=== PATIENT | male | born 1985 | race Caucasian/White ===

== ENCOUNTER 2021-03-28 19:08 | Inpatient (IN) | payer OTHER, SELFPAY ==
--- NOTE | 2021-03-28 19:36 | W.ED.GENADLT ---
HPI - General Adult General: Chief complaint: Shortness of Breath/Dyspnea Stated complaint: Sob, Time Seen by Provider: 03/28/21 19:36 History of Present Illness: HPI narrative: Mr Linares is a 35-year-old gentleman without significant past medical history presents emergency department due to racing heart, leg swelling, shortness of breath. Onset of symptoms has been gradual for the past few weeks. He cannot think of a specific provoking event that started this. Since that time he has had intermittent but increasing frequency and worsening intensity of symptoms. Symptoms are worse with exertion but do not go with rest. No associated chest pain. He cannot think of specific exacerbating relieving factors otherwise. He denies similar episodes in the past. Smoking. Mild amount alcohol consumption. Does have positive family history of early cardiac . Review of Systems General: Reports: 10 or more systems reviewed and unremarkable except in HPI and below PFSH ED PFSH: Medical History CHF (congestive heart failure), NYHA class III Second hand smoke exposure Surgical History No pertinent past surgical history Physical Exam Narrative: EXAM NARRATIVE: GENERAL/CONSTITUTIONAL -mildly ill-appearing. No acute distress. Eyes - PERRL, no conjunctival injection ENMT - Atraumatic external nose and ears. Moist mucous membranes NECK - supple. trachea midline CARDIOVASCULAR -tachycardic rate and regular rhythm. Peripheral pulses 2+ and equal. 1+ pitting edema to above the knees RESPIRATORY -clear to auscultation bilaterally. Mild tachypnea ABDOMEN/GI - Nontender/Nondistended. No tenderness to percussion or evidence of peritonitis MSK - Extremities without obvious deformity or tenderness to palpation SKIN - Warm, Dry NEURO - alert and appropriately oriented. Moves all extremities equally. PSYCH -anxious Course ED course: - Patient was seen and evaluated by me at bedside - Patient placed on cardiac monitors, IV access obtained - Initial evaluation notable for anxious appearance, tachycardia. Patient initially brought right back from triage as pulse oximeter appeared to be reading each heartbeat as to and thus heart rate was estimated to be well above 200, upon being hooked to classroom monitor patient's heart rate 120 to 130 range -Fluids ordered - Labs notable for mild leukocytosis. No significant metabolic abnormality to explain patient's symptoms, transaminitis of unclear etiology. BNP elevated. D-dimer elevated. - Imaging notable for no PE, mild cardiomegaly and pericardial effusion - Upon serial reexamination after treatment the patient was mildly improved - Based on patient history, evaluation, labs, and imaging as interpreted the most likely cause of the patient's condition is unclear. Patient does require further evaluation for apparent new onset heart failure. - The results of ED evaluation were discussed with the patient including plan for admission due to requirement for level of care not available if discharged to prevent significant worsening/deterioration. -Hospitalist service contacted and agreed to meet the patient - Patient was admitted without further deterioration or significant events. Vital Signs: Vital signs: Vital Signs Temperature 97.6 F 04/01/21 04:00 Pulse Rate 113 H 04/01/21 17:00 Respiratory Rate 28 H 04/01/21 09:15 Blood Pressure 112/67 04/01/21 15:30 Pulse Oximetry 98 04/01/21 13:15 MDM - General Adult Medical Records: Attestation: I reviewed the patient's medical records. Lab Data: Attestation: I reviewed the patient's lab results. Labs: Lab Results 03/28/21 03/28/21 03/28/21 19:47 19:47 19:47 WBC 12.1 10^3/uL H 10 ^3/uL (4.0-10.0) RBC 5.88 10^6/uL H 10 ^6/uL (4.1-5.3) Hgb 15.9 g/dL g/dL (11.7-16.6) Hct 48.4 % % (42.0-52.0) MCV 82.3 fl fl (80-94) MCH 27.0 pg L pg (28.0-34.0) MCHC 32.9 g/dL g/dL (30.0-36.0) RDW 14.9 % % (12.1-15.1) Plt Count 311 10^3/cmm 10^3 /cmm (130-400) MPV 10.4 fL fL (7.4-10.4) Neut % (Auto) 59.5 % % Lymph % (Auto) 27.3 % % [place] % (Auto) 8.8 % % Eos % (Auto) 2.0 % % Baso % (Auto) 1.7 % % Neut # (Auto) 7.22 10^3/uL 10^3 /uL (1.8-7.7) Lymph # (Auto) 3.3 10^3/uL 10^3/ uL (0.8-4.8) [place] # (Auto) 1.1 10^3/uL H 10^ 3/uL (0.2-0.9) Eos # (Auto) 0.2 10^3/uL 10^3/ uL (0.0-0.8) Baso # (Auto) 0.2 10^3/uL H 10^ 3/uL (0.0-0.1) Nucleated RBC % (a uto) 0 % % Nucleated RBCs # 0.0 /100WBC /100W BC D-Dimer Sodium Cancelled Potassium Cancelled Chloride Cancelled Carbon Dioxide Cancelled Anion Gap Cancelled BUN Cancelled Creatinine Cancelled GFR Calculation Cancelled Glucose Cancelled Estimat Average Gl ucose Hemoglobin A1c Calculated Osmolal ity Cancelled Lactate 1.4 mmol/L mmol/L (0.5-2.2) Calcium Cancelled Magnesium Cancelled Total Bilirubin Cancelled AST Cancelled ALT Cancelled Alkaline Phosphata se Cancelled Troponin T Baselin e Troponin T 120 Min poarch Delta Troponin T Troponin T Hi Sens 6Hr Troponin T Hi Sens 6Hr Delta C-Reactive Protein Cancelled NT-Pro-B Natriuret Pep Cancelled Total Protein Cancelled Albumin Cancelled Globulin Cancelled Triglycerides Cholesterol LDL Cholesterol, C alc HDL Cholesterol LDL/HDL Ratio Cholesterol/HDL Ra jagruti Procalcitonin Cancelled TSH Cancelled Hepatitis A IgM Ab Hep Bs Antigen Hep B Core IgM Ab Hepatitis C Antibo dy SARS-CoV-2 Ag (Rap id) 03/28/21 03/28/21 03/28/21 19:47 19:47 20:13 WBC RBC Hgb Hct MCV MCH MCHC RDW Plt Count MPV Neut % (Auto) Lymph % (Auto) [place] % (Auto) Eos % (Auto) Baso % (Auto) Neut # (Auto) Lymph # (Auto) [place] # (Auto) Eos # (Auto) Baso # (Auto) Nucleated RBC % (a uto) Nucleated RBCs # D-Dimer 0.82 ug/mIFEU H u g/mIFEU (0-0.59) Sodium 139 mmol/L mmol/L (136-145) Potassium 4.0 mmol/L mmol/L (3.5-5.1) Chloride 106 mmol/L mmol/L (98-107) Carbon Dioxide 22 mmol/L mmol/L (22-29) Anion Gap 15.0 (5-19) BUN 23 mg/dL H mg/dL (6-20) Creatinine 0.9 mg/dL mg/dL (0.7-1.2) GFR Calculation 97.2 mL/min mL/mi n (90-130) Glucose 99 mg/dL mg/dL (65-115) Estimat Average Gl ucose Hemoglobin A1c Calculated Osmolal ity 292 mOsm/kg mOsm/ kg (285-295) Lactate Calcium 8.0 mg/dL L mg/dL (8.5-10.5) Magnesium 1.9 mg/dL mg/dL (1.7-2.3) Total Bilirubin 0.5 mg/dL mg/dL (0.15-1.2) AST 46 U/L H U/L (0-40) ALT 124 U/L H U/L (0-41) Alkaline Phosphata se 43 IU/L IU/L (40-130) Troponin T Baselin e 42 ng/L H ng/L (0-15) Troponin T 120 Min poarch Delta Troponin T Troponin T Hi Sens 6Hr Troponin T Hi Sens 6Hr Delta C-Reactive Protein 7.5 mg/L H mg/L (0.0-4.9) NT-Pro-B Natriuret Pep 1131 pg/mL H pg/m L (0-125) Total Protein 5.2 g/dL L g/dL (6.6-8.7) Albumin 3.3 g/dL L g/dL (3.5-5.2) Globulin 1.9 g/dL g/dL (1.3-4.6) Triglycerides Cholesterol LDL Cholesterol, C alc HDL Cholesterol LDL/HDL Ratio Cholesterol/HDL Ra jagruti Procalcitonin 0.09 ng/mL ng/mL (0-0.5) TSH 1.47 uIU/mL uIU/m L (0.27-4.20) Hepatitis A IgM Ab Hep Bs Antigen Hep B Core IgM Ab Hepatitis C Antibo dy SARS-CoV-2 Ag (Rap id) 03/28/21 03/29/21 03/29/21 21:30 01:13 01:13 WBC 12.2 10^3/uL H 10 ^3/uL (4.0-10.0) RBC 5.87 10^6/uL H 10 ^6/uL (4.1-5.3) Hgb 15.3 g/dL g/dL (11.7-16.6) Hct 49.7 % % (42.0-52.0) MCV 84.7 fl fl (80-94) MCH 26.1 pg L pg (28.0-34.0) MCHC 30.8 g/dL D g/dL (30.0-36.0) RDW 14.4 % % (12.1-15.1) Plt Count 303 10^3/cmm 10^3 /cmm (130-400) MPV 10.2 fL fL (7.4-10.4) Neut % (Auto) 67.9 % % Lymph % (Auto) 22.6 % % [place] % (Auto) 6.6 % % Eos % (Auto) 1.1 % % Baso % (Auto) 1.2 % % Neut # (Auto) 8.27 10^3/uL H 10 ^3/uL (1.8-7.7) Lymph # (Auto) 2.8 10^3/uL 10^3/ uL (0.8-4.8) [place] # (Auto) 0.8 10^3/uL 10^3/ uL (0.2-0.9) Eos # (Auto) 0.1 10^3/uL 10^3/ uL (0.0-0.8) Baso # (Auto) 0.2 10^3/uL H 10^ 3/uL (0.0-0.1) Nucleated RBC % (a uto) 0 % % Nucleated RBCs # 0.0 /100WBC /100W BC D-Dimer Sodium Potassium Chloride Carbon Dioxide Anion Gap BUN Creatinine GFR Calculation Glucose Estimat Average Gl ucose Hemoglobin A1c Calculated Osmolal ity Lactate Calcium Magnesium Total Bilirubin AST ALT Alkaline Phosphata se Troponin T Baselin e Troponin T 120 Min poarch 37.79 ng/L H ng/L (0-15) Delta Troponin T -4.21 ABS# L ABS# (0-10) Troponin T Hi Sens 6Hr 33.74 ng/L H ng/L (0-15) Troponin T Hi Sens 6Hr Delta -8.26 ng/L L ng/L (0-12) C-Reactive Protein NT-Pro-B Natriuret Pep Total Protein Albumin Globulin Triglycerides Cholesterol LDL Cholesterol, C alc HDL Cholesterol LDL/HDL Ratio Cholesterol/HDL Ra jagruti Procalcitonin TSH Hepatitis A IgM Ab Hep Bs Antigen Hep B Core IgM Ab Hepatitis C Antibo dy SARS-CoV-2 Ag (Rap id) 03/29/21 03/29/21 03/29/21 01:13 01:13 01:13 WBC RBC Hgb Hct MCV MCH MCHC RDW Plt Count MPV Neut % (Auto) Lymph % (Auto) [place] % (Auto) Eos % (Auto) Baso % (Auto) Neut # (Auto) Lymph # (Auto) [place] # (Auto) Eos # (Auto) Baso # (Auto) Nucleated RBC % (a uto) Nucleated RBCs # D-Dimer Sodium 137 mmol/L mmol/L (136-145) Potassium 4.6 mmol/L mmol/L (3.5-5.1) Chloride 102 mmol/L mmol/L (98-107) Carbon Dioxide 24 mmol/L mmol/L (22-29) Anion Gap 15.6 (5-19) BUN 21 mg/dL H mg/dL (6-20) Creatinine 1.0 mg/dL mg/dL (0.7-1.2) GFR Calculation 86.1 mL/min L mL/ min (90-130) Glucose 98 mg/dL mg/dL (65-115) Estimat Average Gl ucose 111 Hemoglobin A1c 5.5 % % (4.0-6.0) Calculated Osmolal ity 287 mOsm/kg mOsm/ kg (285-295) Lactate Calcium 8.8 mg/dL mg/dL (8.5-10.5) Magnesium 1.9 mg/dL mg/dL (1.7-2.3) Total Bilirubin 1.1 mg/dL mg/dL (0.15-1.2) AST 50 U/L H U/L (0-40) ALT 148 U/L H U/L (0-41) Alkaline Phosphata se 47 IU/L IU/L (40-130) Troponin T Baselin e Troponin T 120 Min poarch Delta Troponin T Troponin T Hi Sens 6Hr Troponin T Hi Sens 6Hr Delta C-Reactive Protein NT-Pro-B Natriuret Pep 1142 pg/mL H pg/m L (0-125) Total Protein 6.2 g/dL L g/dL (6.6-8.7) Albumin 3.7 g/dL g/dL (3.5-5.2) Globulin 2.5 g/dL g/dL (1.3-4.6) Triglycerides 91 mg/dL mg/dL (0-150) Cholesterol 123 mg/dL mg/dL (0-200) LDL Cholesterol, C alc 57 mg/dL mg/dL (50-129) HDL Cholesterol 48 mg/dL L mg/dL (60-100) LDL/HDL Ratio 1.19 RATIO RATIO (0.00-3.22) Cholesterol/HDL Ra jagruti 2.56 mg/dL mg/dL (1.0-5.00) Procalcitonin 0.07 ng/mL ng/mL (0-0.5) TSH 1.00 uIU/mL uIU/m L (0.27-4.20) Hepatitis A IgM Ab Hep Bs Antigen Hep B Core IgM Ab Hepatitis C Antibo dy SARS-CoV-2 Ag (Rap id) 03/29/21 03/29/21 01:13 03:00 WBC RBC Hgb Hct MCV MCH MCHC RDW Plt Count MPV Neut % (Auto) Lymph % (Auto) [place] % (Auto) Eos % (Auto) Baso % (Auto) Neut # (Auto) Lymph # (Auto) [place] # (Auto) Eos # (Auto) Baso # (Auto) Nucleated RBC % (a uto) Nucleated RBCs # D-Dimer Sodium Potassium Chloride Carbon Dioxide Anion Gap BUN Creatinine GFR Calculation Glucose Estimat Average Gl ucose Hemoglobin A1c Calculated Osmolal ity Lactate Calcium Magnesium Total Bilirubin AST ALT Alkaline Phosphata se Troponin T Baselin e Troponin T 120 Min poarch Delta Troponin T Troponin T Hi Sens 6Hr Troponin T Hi Sens 6Hr Delta C-Reactive Protein NT-Pro-B Natriuret Pep Total Protein Albumin Globulin Triglycerides Cholesterol LDL Cholesterol, C alc HDL Cholesterol LDL/HDL Ratio Cholesterol/HDL Ra jagrtui Procalcitonin TSH Hepatitis A IgM Ab Non-reactive (Nonreactive) Hep Bs Antigen Non-reactive (Nonreactive) Hep B Core IgM Ab Non-reactive (Nonreactive) Hepatitis C Antibo dy Non-reactive (Nonreactive) SARS-CoV-2 Ag (Rap id) Negative (Negative) EKG Data^: EKG 1: Attestation: I personally reviewed and interpreted this EKG as follows: EKG interpretation date: 03/28/21 EKG interpretation time: 19:39 Interpretation: Twelve-lead EKG shows a regular rhythm at a rate of 126. OK interval 133, QRS duration 94, QTc 487. Left axis deviation. Interpretation: Sinus tachycardia. Nonspecific ST segment abnormalities. Computer generated interpretation: Chest CTA 03/28/21 20:18 IMPRESSION: 1. Negative for pulmonary embolism. 2. Mild cardiomegaly, small volume pericardial effusion, and findings suggestive of interstitial pulmonary edema. Subtle ground-glass opacity in the right middle lobe may relate to early airspace/alveolar edema. Mild anasarca. Radiation Dose CTDIVOL = (mGy): DLP = 2002.77 (mGy-cm) Chest X-Ray 03/29/21 04:00 IMPRESSION: There is vascular congestion with cephalization of flow, a few Gregory B lines, mild interstitial edema and subtle ground-glass opacities compatible with mild CHF. This has increased compared to the prior exam. Radiation Dose CTDIVOL = (mGy): DLP = (mGy-cm) Venous Duplex 03/30/21 20:36 IMPRESSION: 1. Focal partially occlusive superficial clot within the right cephalic vein just above the elbow. 2. No evidence of right upper extremity DVT. Radiation Dose CTDIVOL = (mGy): DLP = (mGy-cm) EKG 2: Attestation: I personally reviewed and interpreted this EKG as follows: EKG interpretation date: 03/28/21 EKG interpretation time: 22:38 Interpretation: Twelve-lead EKG shows a regular rhythm at a rate of 111. OK interval 116, QRS duration 93, QTc 495. Left axis deviation. Interpretation: Sinus tachycardia. Short OK. Nonspecific ST segment abnormalities. Computer generated interpretation: Chest CTA 03/28/21 20:18 IMPRESSION: 1. Negative for pulmonary embolism. 2. Mild cardiomegaly, small volume pericardial effusion, and findings suggestive of interstitial pulmonary edema. Subtle ground-glass opacity in the right middle lobe may relate to early airspace/alveolar edema. Mild anasarca. Radiation Dose CTDIVOL = (mGy): DLP = 2002.77 (mGy-cm) Chest X-Ray 03/29/21 04:00 IMPRESSION: There is vascular congestion with cephalization of flow, a few Gregory B lines, mild interstitial edema and subtle ground-glass opacities compatible with mild CHF. This has increased compared to the prior exam. Radiation Dose CTDIVOL = (mGy): DLP = (mGy-cm) Venous Duplex 03/30/21 20:36 IMPRESSION: 1. Focal partially occlusive superficial clot within the right cephalic vein just above the elbow. 2. No evidence of right upper extremity DVT. Radiation Dose CTDIVOL = (mGy): DLP = (mGy-cm) EKG 3: Attestation: I personally reviewed and interpreted this EKG as follows: EKG interpretation date: 03/29/21 EKG interpretation time: 02:47 Interpretation: Twelve-lead EKG shows a regular rhythm at a rate of 109. OK interval 151, QRS duration 104, QTc 476. Left axis deviation. Interpretation: Sinus tachycardia. Similar to prior with resolution of short OK. Computer generated interpretation: Chest CTA 03/28/21 20:18 IMPRESSION: 1. Negative for pulmonary embolism. 2. Mild cardiomegaly, small volume pericardial effusion, and findings suggestive of interstitial pulmonary edema. Subtle ground-glass opacity in the right middle lobe may relate to early airspace/alveolar edema. Mild anasarca. Radiation Dose CTDIVOL = (mGy): DLP = 2003.77 (mGy-cm) Chest X-Ray 03/29/21 04:00 IMPRESSION: There is vascular congestion with cephalization of flow, a few Gregory B lines, mild interstitial edema and subtle ground-glass opacities compatible with mild CHF. This has increased compared to the prior exam. Radiation Dose CTDIVOL = (mGy): DLP = (mGy-cm) Venous Duplex 03/30/21 20:36 IMPRESSION: 1. Focal partially occlusive superficial clot within the right cephalic vein just above the elbow. 2. No evidence of right upper extremity DVT. Radiation Dose CTDIVOL = (mGy): DLP = (mGy-cm) Discharge Plan Discharge Patient Disposition: Placed in Observation Admit Provider: Jimmy Reyes Clinical Impression: Heart failure Discharge Diet: Cardiac Discharge Activity: Resume usual activity Coding Level of Care Code ED Conveyor System Dispatcher for Chg Maribell
[2021-03-28 19:41] VITALS: BP 152/103; PULSE 126; RESP 26; TEMP 36.6; O2SAT 97; BMI 42.0
--- NOTE | 2021-03-28 19:42 | XRR_ITS ---
PROCEDURE INFORMATION: Exam: XR Chest Exam date and time: 03/28/2021 7:42 PM Age: 35 years old Clinical indication: Shortness of breath; Additional info: SOB TECHNIQUE: Imaging protocol: XR of the chest. Views: 1 view. COMPARISON: No relevant prior studies available. FINDINGS: Lungs: Unremarkable. No consolidation. Pleural spaces: Unremarkable. No pleural effusion. No pneumothorax. Heart/Mediastinum: Mild cardiomegaly. Bones/joints: Unremarkable. XR/XR chest 1V portable [id number] IMPRESSION: Mild cardiomegaly. Radiation Dose CTDIVOL = (mGy): DLP = (mGy-cm)
--- NOTE | 2021-03-28 19:43 | ECG_ITS ---
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 Measurements Intervals [place] Rate: 126 P: 69 NV: 133 QRS: -28 QRSD: 94 T: 116 QT: 336 QTc: 487 Interpretive Statements SINUS TACHYCARDIA BORDERLINE LEFT AXIS DEVIATION [QRS AXIS < -20] POSSIBLE RIGHT VENTRICULAR CONDUCTION DELAY [RSR (QR) IN V1/V2] POSSIBLE LEFT VENTRICULAR HYPERTROPHY [VOLTAGE CRITERIA PLUS LAE OR QRS WIDENING] NONSPECIFIC T-WAVE ABNORMALITY No previous ECG available for comparison Electronically Signed On 03-28-2021 22:04:03 CDT by John Cornejo M.D. [id number] f
[2021-03-28 19:44] VITALS: PULSE 85; RESP 18; O2SAT 100
[2021-03-28 19:57] VITALS: BP 152/103; PULSE 116; RESP 20; O2SAT 98
[2021-03-28 19:59] LABS: Basophils # 0.2 10^3/uL (0.0-0.1); Basophils % 1.7 %; Eosinophils # 0.2 10^3/uL (0.0-0.8); Hematocrit 48.4 % (42.0-52.0); Hemoglobin 15.9 g/dL (11.7-16.6); Lymphocytes # 3.3 10^3/uL (0.8-4.8); Lymphocytes % 27.3 %; Mean Corpuscular HGB Conc 32.9 g/dL (30.0-36.0); Mean Corpuscular Volume 82.3 fl (80-94); Mean Platelet Volume 10.4 fL (7.4-10.4); Monocytes # 1.1 10^3/uL (0.2-0.9); Monocytes % 8.8 %; Neutrophils # 7.22 10^3/uL (1.8-7.7); Neutrophils % 59.5 %; Nucleated Red Blood Cells % 0 %; Platelet Count 311 10^3/cmm (130-400); Red Blood Count 5.88 10^6/uL (4.1-5.3); Red Cell Distribution Width 14.9 % (12.1-15.1); White Blood Count 12.1 10^3/uL (4.0-10.0)
[2021-03-28 20:08] LABS: D Dimer 0.82 ug/mIFEU (0-0.59)
[2021-03-28 20:11] LABS: Lactate (Lactic Acid level) 1.4 mmol/L (0.5-2.2)
--- NOTE | 2021-03-28 20:18 | CTR_ITS ---
PROCEDURE INFORMATION: Exam: CTA Chest With Contrast Exam date and time: 03/28/2021 8:18 PM Age: 35 years old Clinical indication: Shortness of breath; Patient HX: SOB with elevated d dimer. Family history of chf. Exam performed twice. Best study submitted. ; Additional info: SOB, tachy, elevated d dimer TECHNIQUE: Imaging protocol: Computed tomographic angiography of the chest with contrast. 3D rendering (Not supervised by radiologist): MIP and/or 3D reconstructed images were created by the technologist. Radiation optimization: All CT scans at this facility use at least one of these dose optimization techniques: automated exposure control; mA and/or kV adjustment per patient size (includes targeted exams where dose is matched to clinical indication); or iterative reconstruction. Contrast material: OMNI 350; Contrast volume: 190 ml; Contrast route: INTRAVENOUS (IV); COMPARISON: CR (CHEST, ) 03/28/2021 7:48 PM RADIATION DOSE METRICS: Total DLP (mGy-cm): 2002.77 FINDINGS: Pulmonary arteries: Normal. No pulmonary emboli. Aorta: Unremarkable. No aortic aneurysm. Lungs: Mild interstitial thickening along the periphery of the lungs and interlobular septal thickening suggestive of pulmonary edema. Subtle ground-glass opacity noted in the right middle lobe. Pleural spaces: Unremarkable. No pneumothorax. No pleural effusion. Pleural spaces: Unremarkable. No pneumothorax. No pleural effusion. Heart: Mild cardiomegaly. Small volume pericardial effusion. Lymph nodes: Enlarged mediastinal lymph nodes including AP window lymph node measuring up to 1.3 cm in short axis, likely reactive. Bones/joints: No acute fracture. Soft tissues: Mild anasarca. CT/CT angio chest PE protcl [id number] IMPRESSION: 1. Negative for pulmonary embolism. 2. Mild cardiomegaly, small volume pericardial effusion, and findings suggestive of interstitial pulmonary edema. Subtle ground-glass opacity in the right middle lobe may relate to early airspace/alveolar edema. Mild anasarca. Radiation Dose CTDIVOL = (mGy): DLP = 2003.77 (mGy-cm)
[2021-03-28 20:20] LABS: Troponin(5th) Baseline 42 ng/L (0-15)
[2021-03-28] MEDS: iohexol 350 mg/mL 100 mL Btl IV ×2 (20:33→20:34)
[2021-03-28 21:06] LABS: NT Pro B Type Natriuretic Pept 1131 pg/mL (0-125); Procalcitonin 0.09 ng/mL (0-0.5); Thyroid Stimulating Hormone 1.47 uIU/mL (0.27-4.20)
[2021-03-28 21:18] LABS: Alanine Aminotransferase 124 U/L (0-41); Albumin Level 3.3 g/dL (3.5-5.2); Alkaline Phosphatase 43 IU/L (40-130); Aspartate Amino Transferase 46 U/L (0-40); Blood Urea Nitrogen 23 mg/dL (6-20); C Reactive Protein 7.5 mg/L (0.0-4.9); Carbon Dioxide 22 mmol/L (22-29); Chloride 106 mmol/L (98-107); Globulin 1.9 g/dL (1.3-4.6); Glomerular Filtration Rate 97.2 mL/min (90-130); Glucose 99 mg/dL (65-115); Magnesium 1.9 mg/dL (1.7-2.3); Osmolality Calculated 292 mOsm/kg (285-295); Sodium 139 mmol/L (136-145); Total Bilirubin 0.5 mg/dL (0.15-1.2); Total Protein 5.2 g/dL (6.6-8.7)
--- NOTE | 2021-03-28 21:43 | ECG_ITS ---
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 Measurements Intervals [place] Rate: 111 P: 51 MO: 116 QRS: -20 QRSD: 93 T: 118 QT: 363 QTc: 495 Interpretive Statements SINUS TACHYCARDIA WITH SHORT MO INTERVAL LEFT ATRIAL ENLARGEMENT [-0.15mV P-WAVE IN V1/V2] POSSIBLE RIGHT VENTRICULAR CONDUCTION DELAY [RSR (QR) IN V1/V2] POSSIBLE LEFT VENTRICULAR HYPERTROPHY [VOLTAGE CRITERIA PLUS LAE OR QRS WIDENING] NONSPECIFIC T-WAVE ABNORMALITY Compared to ECG 03/28/2021 19:39:01 Short MO interval now present Atrial abnormality now present T-wave abnormality still present Electronically Signed On 03-28-2021 23:55:47 CDT by John Cornejo M.D. [id number]
[2021-03-28 22:12] VITALS: BP 161/75; PULSE 85; RESP 17; O2SAT 93
[2021-03-28 22:25] LABS: Troponin 5 2HR 37.79 ng/L (0-15)
[2021-03-28 22:32] LABS: Troponin 5 2HR Delta -4.21 ABS# (0-10)
--- NOTE | 2021-03-28 23:34 | PM.HP ---
Providers/Chief Complaint Admitting Physician: Jimmy Reyes Chief Complaint: Sob History of Present Illness 35-year-old with past medical history significant for tobacco abuse who presented to the ER with respiratory distress. This was associated with increasing lower extremity edema and palpitations. Denied any prior history of similar complaints. No known cardiac history. Noted upper respiratory tract symptoms including fever, chills, and respiratory distress 2 weeks prior as well. Patient stated he was seen outpatient and started on 5 day course of steroids an inhalers. Had suspected COVID-19 infection at that time however this was negative. initially stated he med improved however again started to worsen. Currently noting dyspnea on exertion, orthopnea and increased in bilateral lower extremity edema. Denies chest pain. Denies any recurrence of fever. No nausea or vomiting. Denied abdominal pain, diarrhea or constipation. Laboratory workup arrival showed a WBC of 12.1, hemoglobin of 15.9, hematocrit 48.4 and a platelet count of 311. D-dimer 0.82. Sodium 139, potassium 4.0, chloride 106, bicarb 22, BUN 23 creatinine 0.9. AST of 46, ALT 124, alkaline phosphatase 43 troponin T basically 42, 37.7 at 2hr, CRP of 7.5, ProBNP of 1131. Procalcitonin of 0.09. Chest x-ray showed mild cardiomegaly. CTA chest did not show any evidence of pulmonary embolism however noted to have mild cardiomegaly, small volume pericardial effusion, and findings suggestive of interstitial pulmonary edema. Subtle ground-glass opacity in the right middle lobe may relate to early airspace/alveolar edema. Mild anasarca. In Er patient was given LR 1 L bolus and admitted for observation. Review of Systems General: Reports: 10 or more systems reviewed and unremarkable except in HPI and below Medications/Allergies Home Medications Medication Instructions Recorded Confirmed Last Taken Type No Known Home Medications 03/28/21 03/28/21 Unknown History Allergies Allergy/AdvReac Type Severity Reaction Status Date / Time No Known Allergies Allergy Verified 03/28/21 19:41 PFSH Acute PFSH: Medical History (Updated 03/29/21 @ 00:36 by Jimmy Reyes MD) Tobacco abuse Surgical History (Updated 03/29/21 @ 00:36 by Jimmy Reyes MD) No pertinent past surgical history Vitals/I&O/Wt Last Vital Signs Temp 98.0 F 03/29/21 00:00 Pulse 117 H 03/29/21 00:00 Resp 18 03/29/21 00:00 BP 126/91 03/29/21 00:00 Pulse Ox 99 03/29/21 00:00 Weight last 48 hrs Weight 140.614 kg Physical Exam Narrative: EXAM NARRATIVE: General -alert awake and oriented x3 HEENT-grossly unremarkable CVS-regular rate rhythm Chest- decreased at bases Abd: Soft, NT,ND Extremities- 2+ bilateral pitting edema Data : 03/29/21 01:13 03/29/21 01:13 Micro: Microbiology 03/28/21 20:03 Blood Culture - Preliminary Blood SPECIMEN COLLECTED 03/28/21 19:47 Blood Culture - Preliminary Blood SPECIMEN COLLECTED A&P Assessment and plan (1) Acute respiratory distress: Status: Acute (2) Fluid overload: Status: Acute (3) Transaminitis: Status: Acute Additional A&P Information Acute Respiratory distress due to suspected HF exacerbation No prior history of cardiac disease Chest xray ? noted mild cardiomegaly, pulmonary edema Will obtain Echo in am Lasix 20 mg IV daily - First dose in am per pt Monitor weight and strict input and output Supplemental o2 as needed Will check COVID-19 ag now Droplet/contact precautions until resulted. Possible Viral Cardiomyopathy Transaminitis AST 46, ALT 124 Check Hepatitis panel in am Trend LFTs CMP in am May consider RUQ US if worsening Tobacco abuse Nicotine patch PRN DVT ppx Low -risk Ambulate Attestations Medical Necessity Statement*: Anticipate less than 2 midnight stay in hospital for eval and treatment Time Spent in Patient Care: Greater than 35 minutes (>than 50% of time spent in counselling and/or direct pt care on unit). Coding Level of Care Code Acute Development Trainer for Baljinder Reyna Diagnoses Acute respiratory distress R06.03 Fluid overload E87.70 Transaminitis R74.01
[2021-03-29] VITALS (12 sets, daily range): BP systolic 125–138; BP diastolic 77–91; PULSE 70–119; RESP 18–24; TEMP 36.6–36.9; O2SAT 93–99
[2021-03-29 01:35] LABS: Basophils # 0.2 10^3/uL (0.0-0.1); Basophils % 1.2 %; Eosinophils # 0.1 10^3/uL (0.0-0.8); Eosinophils % 1.1 %; Hematocrit 49.7 % (42.0-52.0); Hemoglobin 15.3 g/dL (11.7-16.6); Lymphocytes # 2.8 10^3/uL (0.8-4.8); Lymphocytes % 22.6 %; Mean Corpuscular HGB Conc 30.8 g/dL (30.0-36.0); Mean Corpuscular Hemoglobin 26.1 pg (28.0-34.0); Mean Corpuscular Volume 84.7 fl (80-94); Mean Platelet Volume 10.2 fL (7.4-10.4); Monocytes # 0.8 10^3/uL (0.2-0.9); Monocytes % 6.6 %; Neutrophils # 8.27 10^3/uL (1.8-7.7); Neutrophils % 67.9 %; Nucleated Red Blood Cells % 0 %; Platelet Count 303 10^3/cmm (130-400); Red Blood Count 5.87 10^6/uL (4.1-5.3); Red Cell Distribution Width 14.4 % (12.1-15.1); White Blood Count 12.2 10^3/uL (4.0-10.0)
--- NOTE | 2021-03-29 01:43 | ECG_ITS ---
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 Measurements Intervals [place] Rate: 109 P: 58 IA: 151 QRS: -18 QRSD: 104 T: 151 QT: 353 QTc: 476 Interpretive Statements SINUS TACHYCARDIA POSSIBLE LEFT ATRIAL ENLARGEMENT [-0.1mV P-WAVE IN V1/V2] POSSIBLE RIGHT VENTRICULAR CONDUCTION DELAY [RSR (QR) IN V1/V2] POSSIBLE LEFT VENTRICULAR HYPERTROPHY [VOLTAGE CRITERIA PLUS LAE OR QRS WIDENING] MODERATE T-WAVE ABNORMALITY, CONSIDER LATERAL ISCHEMIA [-0.1+ mV T-WAVE IN I/aVL/V5/V6] Compared to ECG 03/28/2021 22:39:50 Possible ischemia now present Short IA interval no longer present T-wave abnormality still present Electronically Signed On 03-29-2021 12:23:14 CDT by Padmaja Pastrana M.D. [email or web address]
[2021-03-29 02:12] LABS: Troponin 5 6HR 33.74 ng/L (0-15)
[2021-03-29 02:19] LABS: Alanine Aminotransferase 148 U/L (0-41); Albumin Level 3.7 g/dL (3.5-5.2); Alkaline Phosphatase 47 IU/L (40-130); Anion Gap 15.6 (5-19); Aspartate Amino Transferase 50 U/L (0-40); Blood Urea Nitrogen 21 mg/dL (6-20); Calcium 8.8 mg/dL (8.5-10.5); Carbon Dioxide 24 mmol/L (22-29); Chloride 102 mmol/L (98-107); Globulin 2.5 g/dL (1.3-4.6); Glomerular Filtration Rate 86.1 mL/min (90-130); Glucose 98 mg/dL (65-115); Magnesium 1.9 mg/dL (1.7-2.3); NT Pro B Type Natriuretic Pept 1142 pg/mL (0-125); Osmolality Calculated 287 mOsm/kg (285-295); Potassium 4.6 mmol/L (3.5-5.1); Procalcitonin 0.07 ng/mL (0-0.5); Sodium 137 mmol/L (136-145); Total Bilirubin 1.1 mg/dL (0.15-1.2); Total Protein 6.2 g/dL (6.6-8.7)
[2021-03-29 02:25] LABS: Hepatitis A Antibody IgM Non-Reactive (Nonreactive); Hepatitis B Core IgM Non-Reactive (Nonreactive); Hepatitis B Surface Antigen Non-Reactive (Nonreactive); Hepatitis C Virus Antibody Non-Reactive (Nonreactive); Troponin 5 6HR Delta -8.26 ng/L (0-12)
[2021-03-29 02:30] LABS: Estmated Average Glucose 111; Hemoglobin A1C 5.5 % (4.0-6.0)
[2021-03-29 02:36] LABS: Chol HDL Ratio 2.56 mg/dL (1.0-5.00); Cholesterol 123 mg/dL (0-200); HDL Cholesterol 48 mg/dL (60-100); LDL Cholesterol Calculated 57 mg/dL (50-129); LDL HDL Ratio 1.19 RATIO (0.00-3.22); Triglycerides 91 mg/dL (0-150)
--- NOTE | 2021-03-29 04:00 | XRR_ITS ---
PROCEDURE INFORMATION: Exam: XR Chest Exam date and time: 03/29/2021 4:00 AM Age: 35 years old Clinical indication: Dyspnea TECHNIQUE: Imaging protocol: XR of the chest. Views: 1 view. COMPARISON: CR (CHEST, ) 03/28/2021 7:48 PM FINDINGS: Lungs: There is vascular congestion with cephalization of flow, a few Gregory B lines, mild interstitial edema and subtle ground-glass opacities compatible with mild CHF. No lobar consolidation. Pleural spaces: Unremarkable. No pleural effusion. No pneumothorax. Heart/Mediastinum: The heart is enlarged. Bones/joints: No acute abnormality. XR/XR chest 1V portable [id number] IMPRESSION: There is vascular congestion with cephalization of flow, a few Gregory B lines, mild interstitial edema and subtle ground-glass opacities compatible with mild CHF. This has increased compared to the prior exam. Radiation Dose CTDIVOL = (mGy): DLP = (mGy-cm)
[2021-03-29 05:53] LABS: SARS Covid-2 Antigen Negative (Negative)
[2021-03-29] MEDS: FUROsemide 10 mg/mL SDV 2mL 20 MG IVP (08:47)
[2021-03-29] MEDS: ipratropium-albuterol 3 mL Neb INHALATION (10:11)
[2021-03-29] MEDS: acetaminophen 325 mg Tablet 650 MG PO (12:45)
--- NOTE | 2021-03-29 13:51 | PC.CHAP ---
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 [] Patient/Family/Request visit [] Outpatient visit [] Follow-up visit [] Physician referral [] Code/Alert [X] Routine visit [] Staff referral [] Actively dying [] Patient sleeping [] Family support [] [] Out of room [] Palliative care [] [] Receiving care in room [] Pre-surgical visit [] Trauma [] Long length of stay [] ICU visit [X] Other: spouse present for visit Relational/Emotional Strength [X] Patient feels connected with others/family/visitors/staff [] Distress [] Loneliness/isolation [] Abandonment Spirituality of Patient [] Person of Nivia [] Attends Religious of their Nivia [] Believes in Prayer [] Reads Bible or Buddhism materials [X] There are Spiritual issues to be addressed Virtualization Consultant Interventions [] Prayer [X] Active listening [X] Non-anxious presence [] Spiritual/emotional support [] Crisis/trauma care [] Spiritual counseling [] Bereavement support [] Provided bereavement packet [] Provided Bible/devotional materials [] Provided toy/stuffed animal, coloring book to patient or family member [] Provided Communion [] Anointing/Baldwin [] Salvation [X] Completed spiritual assessment [] Other: Impact on Illness or Injury [] Angry [] Fearful [] Anxious [] Often cries [] Exhaustion [] Unable to work [] Unable to attend pentecostal [] Unable to walk/stand [] Unable to read [] Unable to drive [] Unable to eat/drink [] Unable to sleep [] Unable to be with family [] Patient intubated [] Other: Summary: Pt has family health history of cardiovascular disease with pt's father dying at an early age. This is pt's first bout with cardiovascular problems, and it is a wake up call for the pt. Pt has a (Aunt Kitchen employee) and two young children. Pt declined prayer at this time. Time spent with patient: 15 mins
--- NOTE | 2021-03-29 17:27 | P.CONIM_ITS ---
Providers/Reason For Consult Consulting Physician/Specialty*: Dr. Pastrana, cardiology Reason for Consult*: Congestive heart failure Attending Physician: Keegan Lewis History of Present Illness History of Present Illness Dmitry Linares is a 35 year old male with no prior cardiac history presented to the ER with complaints of worsening respiratory distress for past 2 weeks. He complains of lower extremity swelling upto his knees, abdominal distention, orthopnea and PND. No sick contacts, URI/UTI like symptoms. No diarrhea. 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 On admission, labs showed WBC of 12.1, hemoglobin 15.9, platelet 311. Potassium 4, BUN 23, creatinine 0.9. AST 46 and ALT 124. Troponin T 42 at 2 hours 38 and at 6-hour of 34 . proBNP of 1131. Chest x-ray showed mild cardiomegaly. Rapid Covid antigen negative. EKG showed sinus tachycardia, borderline left axis deviation. RSR prime in V1 and V2, consider right ventricular conduction delay. Nonspecific T wave inversion in 1 and aVL. Biphasic T waves V4 to V6. Repeat EKG with no significant ST-T wave changes. Possible left atrial enlargement. He received lasix 20 mg IVx 1 and feels about 50% better. Echo still pending. His chest tightness and SOB has improved. He gives family h/o CHF in father in his 40's, mother with DM, ASD history in paternal aunts. One maternal uncle with CAD and CABG history. No known exposure to COVID-19 patients. He has not been vaccinated for COVID-19 PNA. Review of Systems General: Reports: 10 or more systems reviewed and unremarkable except in HPI and below Const: Reports: daytime sleepiness, snoring and other (apneic spells); Denies: fever(s) or chills ENMT: Denies: epistaxis Card: Reports: edema, dyspnea on exertion and orthopnea; Denies: chest pain or lightheadedness Resp: Reports: dyspnea GI: Denies: hematochezia or melena : Denies: hematuria Musc: Reports: extremity swelling Skin/Breast: Denies: rash Neuro: Denies: dizziness or vertigo Psych: Denies: anxiety or depression Endo: Denies: tired all the time Meds/Allergies Home Medications and Allergies Home Medications Medication Instructions Recorded Confirmed Last Taken Type No Known Home Medications 03/28/21 03/28/21 Unknown History Allergies Allergy/AdvReac Type Severity Reaction Status Date / Time No Known Allergies Allergy Verified 03/28/21 19:41 Current Medications Current Medications Generic Name Dose Route Start Last Admin Trade Name Freq PRN Reason Stop Dose Admin Acetaminophen 650 mg 03/28/21 23:47 03/29/21 12:45 Acetaminophen 325 Mg Tablet PO 650 mg Q6H PRN Administration Mild/Mod Pain Or Temp >/= 101 Albuterol/Ipratropium 3 ml 03/29/21 04:54 03/29/21 10:11 Ipratropium-Albuterol 3 Ml Neb INHALATION 3 ml Q6H PRN Administration SHORTNESS OF BREATH Furosemide 20 mg 03/29/21 08:00 03/29/21 08:47 Furosemide 10 Mg/Ml Sdv 2ml IVP 20 mg Q24H STEPHAN Administration PFSH Acute PFSH: Medical History CHF (congestive heart failure), NYHA class III Second hand smoke exposure Surgical History No pertinent past surgical history Vitals/I&O/Wt Last Vital Signs Temp 98.4 F 03/29/21 15:18 Pulse 116 H 03/29/21 15:18 Resp 18 03/29/21 15:18 BP 138/85 03/29/21 15:18 Pulse Ox 93 03/29/21 15:18 03/29/21 03/29/21 03/29/21 06:59 14:59 22:59 Intake Total 120 / 120 Balance 120 / 120 Weight last 48 hrs Weight 310 lb Physical Exam Narrative: EXAM NARRATIVE: GENERAL: obese man in no acute distress HEENT: Pupils equal round reactive to light. No pallor or icterus. NECK:Elevated JVD, No carotid bruit. Short thick neck CARDIOVASCULAR SYSTEM: S1-S2 regular. No S3 or S4 present. No murmur appreciated RESPIRATORY SYSTEM: Chest clear to auscultation. No wheezes rhonchi or rubs heard. No use of accessory muscles. ABDOMEN: Soft, nontender and nondistended. Normal bowel sounds present. EXTREMITIES: No cyanosis or clubbing. 1+ bilateral edema. No signs of chronic venous insufficiency. TERRESTRIAL ECOLOGIST: Patient is alert oriented ?3. No focal neurological deficits. SKIN: Normal turgor and temperature. No breakdown, rash or nail changes noted. PSYCH: Normal insight and judgment. Data Micro: Micro: Microbiology 03/28/21 20:03 Blood Culture - Pr eliminary Blood SPE[facility]IMEN [facility] 03/28/21 19:47 Blood Culture - Pr eliminary Blood SPECIMEN [facility] Other Data: Other data: Chest x-ray 29 March 2021 IMPRESSION: There is vascular congestion with cephalization of flow, a few Gregory B lines, mild interstitial edema and subtle ground-glass opacities compatible with mild CHF. This has increased compared to the prior exam. CTA chest 28 March 2021 IMPRESSION: 1. Negative for pulmonary embolism. 2. Mild cardiomegaly, small volume pericardial effusion, and findings suggestive of interstitial pulmonary edema. Subtle ground-glass opacity in the right middle lobe may relate to early airspace/alveolar edema. Mild anasarca A&P Assessment and plan (1) Acute respiratory distress: Likely 2/2 decompensated CHF Status: Acute (2) CHF (congestive heart failure), NYHA class III: lasix 40 mg IV BID -I/O charting, daily weight. -f/u BMP Status: Acute Qualifiers: Congestive heart failure type: unspecified Qualified Code(s): I50.9 - Heart failure, unspecified Additional A&P Information Cardiomegaly Small pericardial effusion Elevated troponin in setting of decompensated CHF Obesity Transaminitis Suspect ROCHELLE H/o ASD requiring sx in few family members Thank you for allowing me to participate in patient's care. Please feel free to call with questions or concerns. Consult Attestations Time Spent in Patient Care: 16 - 35 minutes (>than 50% of time spent in counselling and/or direct pt care on unit) . 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
--- NOTE | 2021-03-29 20:07 | PM.PN ---
Vitals/I&O/Wt Last Vital Signs Temp 98.4 F 03/29/21 15:18 Pulse 116 H 03/29/21 15:18 Resp 18 03/29/21 15:18 BP 138/85 03/29/21 15:18 Pulse Ox 93 03/29/21 15:18 03/29/21 03/29/21 03/29/21 06:59 14:59 22:59 Intake Total 120 / 120 240 / 360 Balance 120 / 120 240 / 360 Weight last 48 hrs Weight 140.614 kg Physical Exam Const: COMMON NORMALS: no acute distress and patient oriented x3 HENMT: COMMON NORMALS: oropharynx normal Neck/C-Spine: COMMON NORMALS: no JVD Resp: COMMON NORMALS: normal respiratory effort and clear to auscultation bilaterally AUSCULTATION: clear to auscultation bilaterally Cardio: COMMON NORMALS: no JVD, regular rhythm, S1 normal heart sound present, S2 normal heart sound present and No murmurs present (Cardio) RHYTHM: regular rhythm HEART SOUNDS: S1 normal heart sound present and S2 normal heart sound present GI: COMMON NORMALS: Normal to inspection, nondistended, normoactive bowel sounds present, Soft to palpation and non-tender PALPATION: Yes Soft to palpation Extremity: COMMON NORMALS: no joint enlargement GENERAL: Yes edema (3+ LE, large abdomen, flank edema) Neuro: COMMON NORMALS: patient oriented x3 and moves all extremities Skin: COMMON NORMALS: no rashes or lesions noted GENERAL SKIN EXAM: no rashes or lesions noted Data : 03/29/21 01:13 03/29/21 01:13 Micro: Microbiology 03/28/21 19:47 Blood Culture - Preliminary Blood NEGATIVE TO DATE 03/28/21 20:03 Blood Culture - Preliminary Blood SPECIMEN COLLECTED A&P Assessment and plan (1) Cardiomyopathy: Possibly inherited cardiomyopathy as reports history of congestive heart failure with father passing away at age 45, grandfather 55 from CHF. HPI indicates concern regarding COVID-19 infection, although patient states this is what was thought initially when he was presenting with dyspnea about 2 weeks ago. His reports he was possibly feeling unwell at that time with low-grade prefever , but did not have any florid viral-like illness. Echocardiogram has been requested, her, not performed I am told due to persistent tachycardia. Requested to perform at least limited study of ventricles, pericardium as noted small pericardial effusion on CT. Appreciate cardiology recommendations with regards to additional assessment. Status: Acute (2) CHF (congestive heart failure), NYHA class III: Appears to have features of biventricular heart failure. Acute. Unknown at the moment whether systolic. Reports has gained close to 35-40 pounds over his baseline weight. Significant edema of legs, enlarged, some edema around flanks. Responded favorably to initial challenge with 20 mg IV Lasix. Blood pressure staying good. He felt initial bit better, complete reports again getting a bit more orthopneic. Persistent edema. We will increase Lasix dose to 40 mg twice daily for now. Monitor I&O. Monitor vitals. He will need quite extensive diuresis. Declined Smith for the time being. May need work release/[facility] paperwork. Status: Acute (3) Acute respiratory distress: With significant dyspnea on exertion, very symptomatic orthopnea, lower extremity edema. Doing well on room air at rest, but has to sit upright. Status: Acute (4) Fluid overload: Reports about 35-40 pounds over his baseline weight. As above. Status: Acute (5) Transaminitis: Suspected secondary to right heart failure, should improve with diuresis. Monitor liver parameters. Status: Acute (6) Second hand smoke exposure: He is a never smoker, marginal history information incorrect. Secondhand smoke exposure at home. Hepatitis panel negative. Status: Acute (7) Swelling of right upper extremity: Assess venous duplex. Decline to reposition IV at this time. Elevate extremity. Status: Acute Additional A&P Information DVT ppx Low -risk Ambulate Attestations Medical Necessity Statement*: Requires admission of over 2 midnights for assessment management of acute CHF about 35-40 pounds over base weight with severe edema, with new onset unknown type cardiomyopathy. Coding Level of Care Code Acute Community Representative for [facility] Diagnoses Cardiomyopathy I42.9 CHF (congestive heart failure), NYHA class III I50.9 Acute respiratory distress R06.03 Fluid overload E87.70 Transaminitis R74.01 Second hand smoke exposure Z77.22 Swelling of right upper extremity M79.89
[2021-03-29] MEDS: FUROsemide 10 mg/mL SDV 4mL 40 MG IVP (21:22)
[2021-03-29] MEDS: metoprolol succinate ER (24 HR) 25 mg Tablet PO (21:26)
--- NOTE | 2021-03-29 21:47 | PC.RESP ---
pt placed on overnight continuous pulse ox att, on room air. Will monitor closely
[2021-03-30] VITALS (11 sets, daily range): BP systolic 92–138; BP diastolic 51–86; PULSE 85–112; RESP 16–20; TEMP 36.4–37; O2SAT 93–113
--- NOTE | 2021-03-30 05:37 | PC.NURSE ---
i reported high pulse 113 to nurse
[2021-03-30 07:13] LABS: Basophils # 0.1 10^3/uL (0.0-0.1); Basophils % 1.4 %; Eosinophils # 0.2 10^3/uL (0.0-0.8); Eosinophils % 2.3 %; Hemoglobin 13.9 g/dL (11.7-16.6); Lymphocytes # 2.2 10^3/uL (0.8-4.8); Lymphocytes % 21.6 %; Mean Corpuscular HGB Conc 30.2 g/dL (30.0-36.0); Mean Corpuscular Hemoglobin 26.2 pg (28.0-34.0); Mean Corpuscular Volume 86.8 fl (80-94); Mean Platelet Volume 10.5 fL (7.4-10.4); Monocytes # 0.8 10^3/uL (0.2-0.9); Monocytes % 8.2 %; Neutrophils # 6.53 10^3/uL (1.8-7.7); Neutrophils % 65.8 %; Nucleated Red Blood Cells % 0 %; Platelet Count 248 10^3/cmm (130-400); Red Cell Distribution Width 14.7 % (12.1-15.1); White Blood Count 9.9 10^3/uL (4.0-10.0)
[2021-03-30] MEDS: FUROsemide 10 mg/mL SDV 4mL 40 MG IVP ×2 (07:45→20:44)
[2021-03-30] MEDS: metoprolol succinate ER (24 HR) 25 mg Tablet PO (09:15)
[2021-03-30] MEDS: potassium chloride ER 20 mEq Tablet PO (09:15)
[2021-03-30] MEDS: enoxaparin 100 mg/mL Syringe SUBCUT (13:46)
[2021-03-30] MEDS: enoxaparin 40 mg/0.4 mL Syringe SUBCUT (13:46)
--- NOTE | 2021-03-30 14:05 | P.PN_ITS ---
Subjective Subjective: Interval history: He feels better. UO 1875 ml, -1200 ml Medications: Reviewed: Yes Medication Review Details: Current Medications Acetaminophen (Acetaminophen 325 Mg Tablet) 650 mg PO Q6H PRN PRN Reason: Mild/Mod Pain Or Temp >/= 101 Last Admin: 03/29/21 12:45 Dose: 650 mg Documented by: Enoxaparin Sodium (Enoxaparin 100 Mg/Ml Syringe) 100 mg SUBCUT Q12H [facility] Last Admin: 03/30/21 13:46 Dose: 100 mg Documented by: Enoxaparin Sodium (Enoxaparin 40 Mg/0.4 Ml Syringe) 40 mg SUBCUT Q12H [facility] Last Admin: 03/30/21 13:46 Dose: 40 mg Documented by: Furosemide (Furosemide 10 Mg/Ml Sdv 4ml) 40 mg IVP Q12H [facility] Last Admin: 03/30/21 07:45 Dose: 40 mg Documented by: Metoprolol Succinate (Metoprolol Succinate Er (24 Hr) 25 Mg Tablet) 25 mg PO DAILY [facility] Last Admin: 03/30/21 09:15 Dose: 25 mg Documented by: Ondansetron HCl (Ondansetron 2 Mg/Ml Sdv 2 Ml) 4 mg IVP Q8H PRN PRN Reason: vomiting, or N/V if npo Potassium Chloride (Potassium Chloride Er 20 Meq Tablet) 20 meq PO DAILY [facility] Last Admin: 03/30/21 09:15 Dose: 20 meq Documented by: Vitals/I&O/Wt Last Vital Signs Temp 98.6 F 03/30/21 11:35 Pulse 106 H 03/30/21 11:35 Resp 16 03/30/21 11:35 BP 138/77 03/30/21 11:35 Pulse Ox 94 03/30/21 11:35 03/29/21 03/30/21 03/30/21 22:59 06:59 14:59 Intake Total 480 / 600 600 / 600 Output Total 800 / 800 1875 / 1875 Balance -320 / -200 -1275 / -1275 Weight last 48 hrs Weight 310 lb Physical Exam Narrative: EXAM NARRATIVE: GENERAL: obese man in no acute distress HEENT: Pupils equal round reactive to light. No pallor or icterus. NECK:Elevated JVD, No carotid bruit. Short thick neck CARDIOVASCULAR SYSTEM: S1-S2 regular. systolic murmur + RESPIRATORY SYSTEM: Chest clear to auscultation. No wheezes rhonchi or rubs heard. No use of accessory muscles. ABDOMEN: Soft, nontender and nondistended. Normal bowel sounds present. EXTREMITIES: No cyanosis or clubbing. 1+ bilateral edema. No signs of chronic venous insufficiency. DIRECTOR DATA ANALYTICS: Patient is alert oriented ?3. No focal neurological deficits. SKIN: Normal turgor and temperature. PSYCH: Normal insight and judgment. Data : 03/30/21 06:28 03/30/21 06:20 Micro: Microbiology 03/28/21 20:03 Blood Culture - Preliminary Blood NEGATIVE TO DATE 03/28/21 19:47 Blood Culture - Preliminary Blood NEGATIVE TO DATE A&P Assessment and plan (1) Acute respiratory distress: Likely 2/2 decompensated CHF Status: Acute (2) CHF (congestive heart failure), NYHA class III: HFrEF (LVEF=20%); He does not have any significant CAD risk factors. -lasix 40 mg IV BID; increase metoprolol succinate to 50 mg tomorrow morning and start on low dose entresto. -I/O charting, daily weight. -f/u BMP in morning Plan for LHC and RHC potentially on Wednesday. Status: Acute Qualifiers: Congestive heart failure type: unspecified Qualified Code(s): I50.9 - Heart failure, unspecified Additional A&P Information Cardiomegaly Small pericardial effusion on CT: No significant effusion on TTE Elevated troponin in setting of decompensated CHF Obesity Transaminitis : resolved Suspect ROCHELLE H/o ASD requiring sx in few family members H/o hole in heart and murmur as child Thank you for allowing me to participate in patient's care. Please feel free to call with questions or concerns. Attestations Medical Necessity Statement*: Requires admission of over 2 midnights for assessment management of acute CHF about 35-40 pounds over base weight with severe edema, with new onset unknown type cardiomyopathy. Time Spent in Patient Care: 16 - 35 minutes (>than 50% of time spent in counselling and/or direct pt care on unit) . 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
[2021-03-30 14:27] LABS: Alanine Aminotransferase 113 U/L (0-41); Albumin Level 3.4 g/dL (3.5-5.2); Alkaline Phosphatase 46 IU/L (40-130); Aspartate Amino Transferase 39 U/L (0-40); Blood Urea Nitrogen 17 mg/dL (6-20); Calcium 8.6 mg/dL (8.5-10.5); Carbon Dioxide 28 mmol/L (22-29); Chloride 104 mmol/L (98-107); Globulin 2.1 g/dL (1.3-4.6); Glomerular Filtration Rate 97.2 mL/min (90-130); Glucose 74 mg/dL (65-115); Osmolality Calculated 292 mOsm/kg (285-295); Sodium 141 mmol/L (136-145); Total Bilirubin 0.5 mg/dL (0.15-1.2); Total Protein 5.5 g/dL (6.6-8.7)
--- NOTE | 2021-03-30 18:00 | P.PN_ITS ---
Subjective Subjective: Interval history: Patient was seen this morning, he tells me his breathing has significantly improved, swelling has improved, still requires propping up in bed to sleep, but overall doing better, does report a history of snoring at night, no diagnosis of sleep apnea, he is undergoing some degree of stress as he is having a custody cerda for his children, and having marital problems Vitals/I&O/Wt Last Vital Signs Temp 98.4 F 03/30/21 15:32 Pulse 104 H 03/30/21 15:32 Resp 16 03/30/21 15:32 BP 125/86 03/30/21 15:32 Pulse Ox 97 03/30/21 15:32 03/30/21 03/30/21 03/30/21 06:59 14:59 22:59 Intake Total 600 / 600 Output Total 1875 / 1875 Balance -1275 / -1275 Weight last 48 hrs Weight 140.614 kg Physical Exam Const: COMMON NORMALS: no acute distress and patient oriented x3 Resp: COMMON NORMALS: normal respiratory effort, No retractions, No use of accessory muscles and clear to auscultation bilaterally AUSCULTATION: clear to auscultation bilaterally Cardio: COMMON NORMALS: regular rate, regular rhythm, S1 normal heart sound present and S2 normal heart sound present RATE: regular rate RHYTHM: regular rhythm HEART SOUNDS: S1 normal heart sound present and S2 normal heart sound present GI: COMMON NORMALS: Normal to inspection, nondistended, normoactive bowel sounds present, Soft to palpation, non-tender and No hepatosplenomegaly present PALPATION: Yes Soft to palpation and Yes No hepatosplenomegaly present Extremity: COMMON NORMALS: no pedal edema Neuro: COMMON NORMALS: patient oriented x3 Psych: COMMON NORMALS: mental status grossly normal Data : 03/30/21 06:28 03/30/21 06:20 Micro: Microbiology 03/28/21 20:03 Blood Culture - Preliminary Blood NEGATIVE TO DATE 03/28/21 19:47 Blood Culture - Preliminary Blood NEGATIVE TO DATE A&P Assessment and plan (1) Cardiomyopathy: Possibly inherited cardiomyopathy as reports history of congestive heart failure with father passing away at age 45, grandfather 55 from CHF. HPI indicates concern regarding COVID-19 infection, although patient states this is what was thought initially when he was presenting with dyspnea about 2 weeks ago. His reports he was possibly feeling unwell at that time with low- grade prefever , but did not have any florid viral-like illness. Echocardiogram has been requested, severely decreased left ventricular ejection fraction at 20%, severe global hypokinesis, abnormal diastolic dysfunction, moderate tricuspid valve regurg Appreciate cardiology recommendations with regards to additional assessment. Status: Acute (2) CHF (congestive heart failure), NYHA class III: Appears to have features of biventricular heart failure. Acute. Unknown at the moment whether systolic. Reports has gained close to 35-40 pounds over his baseline weight. Significant edema of legs, enlarged, some edema around flanks. Responded favorably to initial challenge with 20 mg IV Lasix. Blood pressure staying good. He felt initial bit better, complete reports again getting a bit more orthopneic. Persistent edema. Continue Lasix 40 mg IV twice daily, -1835, creatinine 0.9, BNP 1142. Monitor I&O. Monitor vitals. He will need quite extensive diuresis. Declined Smith for the time being. May need work release/[facility] paperwork. Status: Acute Qualifiers: Congestive heart failure type: unspecified Qualified Code(s): I50.9 - Heart failure, unspecified (3) Acute respiratory distress: With significant dyspnea on exertion, very symptomatic orthopnea, lower extremity edema. Doing well on room air at rest, but has to sit upright. Status: Acute (4) Fluid overload: Reports about 35-40 pounds over his baseline weight. As above. Status: Acute (5) Transaminitis: Suspected secondary to right heart failure, should improve with diuresis. Monitor liver parameters. Status: Acute (6) Second hand smoke exposure: He is a never smoker, marginal history information incorrect. Secondhand smoke exposure at home. Hepatitis panel negative. 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
[2021-03-30] MEDS: sacubitril/valsartan 24-26 mg Tablet 1 EACH PO (18:13)
--- NOTE | 2021-03-30 20:03 | USCV_ITS ---
Dmitry Linares Age: 35 Gender: M : 1985 Exam Date: 03/30/2021 06:46 Ordering Phys: Keegan Lewis MD Technologist: Exam Location: [facility] [place] Indication: SOB BP: 145 / 87 HR: 51 Rhythm: Sinus Technical Quality: Good MEASUREMENTS (Male / Female) Normal Values 2D ECHO LV Diastolic Diameter PLAX 5.8 cm 4.2 - 5.9 / 3.9 - 5.3 cm LV Systolic Diameter PLAX 4.8 cm IVS Diastolic Thickness 0.9 cm 0.6 - 1.0 / 0.6 - 0.9 cm IVS Systolic Thickness 0.8 cm LVPW Diastolic Thickness 1.0 cm 0.6 - 1.0 / 0.6 - 0.9 cm LVPW Systolic Thickness 1.2 cm LVOT Diameter 2.1 cm LV Ejection Fraction 2D Teich 37.4 % LV Ejection Fraction MOD 2C 30.4 % LV Ejection Fraction 2C AL 31.1 % LA Diameter 5.0 cm LA Width 5.0 cm LA Height 6.0 cm RA Width 4.4 cm RA Height 6.1 cm Aorta at Sinotubular Diameter 2.3 cm DOPPLER AV Peak Velocity 85.0 cm/s LVOT Peak Velocity 73.0 cm/s AV Area Cont Eq vti 3.2 cm squared AV Area Cont Eq pk 3.0 cm squared MV Area PHT 5.0 cm squared Mitral E to A Ratio 2.0 MV E' Velocity 90.0 cm/s TR Peak Velocity 259.8 cm/s TR Peak Gradient 27.0 mmHg TV Peak E Velocity 142.0 cm/s Right Atrial Pressure 3.0 mmHg Pulmonary Artery Systolic Pressu 30.0 mmHg FINDINGS Left Ventricle Dilated left ventricle. Severely decreased left ventricular systolic function. Left ventricular ejection fraction is estimated at 20 %. Severe global hypokinesis. Abnormal diastolic function. Right Ventricle Normal right ventricular size and systolic function. Right ventricular systolic pressure 46 mmHg. Right Atrium Mildly increased right atrial size. Right atrial pressure estimated at 15 mmHg. Left Atrium Mildly increased left atrial size. Mitral Valve Mildly thickened mitral valve. No mitral valve stenosis. Mild to moderate mitral valve regurgitation. Aortic Valve Structurally normal trileaflet aortic valve. No aortic valve stenosis. No aortic valve regurgitation. Tricuspid Valve Structurally normal tricuspid valve. No tricuspid valve stenosis. At least moderate tricuspid valve regurgitation. Pulmonic Valve Structurally normal pulmonic valve. No pulmonary valve stenosis. Trace pulmonary valve regurgitation. Pericardium No pericardial effusion. Aorta Normal size aortic root and proximal ascending aorta. Dilated inferior vena cava with less than 50% respiratory variation. CONCLUSIONS 1. Dilated left ventricle. Severely decreased left ventricular systolic function. Left ventricular ejection fraction is estimated at 20 %. Severe global hypokinesis. Abnormal diastolic function. 2. Normal right ventricular size and systolic function. 3. Mild biatrial enlargement. 4. Mild to moderate mitral valve regurgitation. 5. At least moderate tricuspid valve regurgitation. 6. Right atrial pressure estimated at 15 mmHg. 7. Moderate pulmonary hypertension with pulmonary pressure estimated at 46 mmHg. 8. No prior similar studies to compare. Padmaja Pastrana MD (Electronically Signed) Final Date: 30 March 2021 13:59 S
--- NOTE | 2021-03-30 20:19 | PC.NURSE ---
i reported high pulse 102 and high reps 20 to nurse
--- NOTE | 2021-03-30 20:36 | USR_ITS ---
PROCEDURE INFORMATION: Exam: US Duplex Right Lower Extremity Veins, Limited Exam date and time: 03/30/2021 8:36 PM Age: 35 years old Clinical indication: Pain; Arm, upper; Right; Additional info: Swelling, assess for dvt TECHNIQUE: Imaging protocol: Real-time Duplex ultrasound of the Right Lower Extremity with 2-D darling scale, color Doppler flow and spectral waveform analysis with image documentation. Limited exam was focused on the right lower extremity veins. COMPARISON: No relevant prior studies available. FINDINGS: Right deep veins: The deep venous structures including the visualized right jugular, subclavian, axillary, brachial, radial, and ulnar veins are patent. Normal compression, augmentation, and color flow documented. Right superficial veins: Focal slightly heterogeneous partially compressible clot noted in the right cephalic vein just above the elbow. Some preserved color flow present. Basilic vein patent. Soft tissues: Unremarkable. US/[place] [id number] IMPRESSION: 1. Focal partially occlusive superficial clot within the right cephalic vein just above the elbow. 2. No evidence of right upper extremity DVT. Radiation Dose CTDIVOL = (mGy): DLP = (mGy-cm)
--- NOTE | 2021-03-30 23:41 | PC.NURSE ---
i reported high pulse 102 to nurse
[2021-03-31] VITALS (8 sets, daily range): BP systolic 98–122; BP diastolic 47–77; PULSE 99–122; RESP 16–25; TEMP 36.6–36.9; O2SAT 95–97
[2021-03-31] MEDS: enoxaparin 40 mg/0.4 mL Syringe SUBCUT ×2 (00:38→12:22)
[2021-03-31] MEDS: enoxaparin 100 mg/mL Syringe SUBCUT ×2 (00:39→12:22)
[2021-03-31 05:57] LABS: Basophils # 0.2 10^3/uL (0.0-0.1); Basophils % 1.5 %; Eosinophils # 0.2 10^3/uL (0.0-0.8); Hemoglobin 14.6 g/dL (11.7-16.6); Lymphocytes # 2.5 10^3/uL (0.8-4.8); Lymphocytes % 21.6 %; Mean Corpuscular HGB Conc 31.1 g/dL (30.0-36.0); Mean Corpuscular Hemoglobin 26.6 pg (28.0-34.0); Mean Corpuscular Volume 85.6 fl (80-94); Mean Platelet Volume 10.3 fL (7.4-10.4); Monocytes # 0.9 10^3/uL (0.2-0.9); Monocytes % 7.8 %; Neutrophils % 66.7 %; Nucleated Red Blood Cells % 0 %; Platelet Count 248 10^3/cmm (130-400); Red Blood Count 5.49 10^6/uL (4.1-5.3); Red Cell Distribution Width 14.5 % (12.1-15.1); White Blood Count 11.7 10^3/uL (4.0-10.0)
[2021-03-31 06:27] LABS: Alanine Aminotransferase 96 U/L (0-41); Albumin Level 3.4 g/dL (3.5-5.2); Alkaline Phosphatase 45 IU/L (40-130); Anion Gap 11.5 (5-19); Aspartate Amino Transferase 28 U/L (0-40); Blood Urea Nitrogen 20 mg/dL (6-20); Calcium 8.6 mg/dL (8.5-10.5); Carbon Dioxide 30 mmol/L (22-29); Chloride 103 mmol/L (98-107); Globulin 2.5 g/dL (1.3-4.6); Glomerular Filtration Rate 86.1 mL/min (90-130); Glucose 90 mg/dL (65-115); Osmolality Calculated 292 mOsm/kg (285-295); Potassium 4.5 mmol/L (3.5-5.1); Sodium 140 mmol/L (136-145); Total Bilirubin 0.7 mg/dL (0.15-1.2); Total Protein 5.9 g/dL (6.6-8.7)
[2021-03-31] MEDS: aspirin 325 mg Tablet PO (09:05)
[2021-03-31] MEDS: FUROsemide 10 mg/mL SDV 4mL 40 MG IVP (09:05)
--- NOTE | 2021-03-31 12:15 | PM.PN ---
Subjective Subjective: Interval history: He feels better; UO 4L , -3.1 L; rapid Covid and Covid PCR negative. Medications: Reviewed: Yes Vitals/I&O/Wt Last Vital Signs Temp 98.4 F 03/31/21 08:00 Pulse 104 H 03/31/21 08:00 Resp 18 03/31/21 08:00 BP 98/47 03/31/21 08:00 Pulse Ox 95 03/31/21 08:00 03/30/21 03/31/21 03/31/21 22:59 06:59 14:59 Intake Total 240 / 840 290 / 1130 120 / 120 Output Total 1200 / 3075 1240 / 4315 Balance -960 / -2235 -950 / -3185 120 / 120 Physical Exam Narrative: EXAM NARRATIVE: GENERAL: obese man in no acute distress HEENT: Pupils equal round reactive to light. No pallor or icterus. NECK:Elevated JVD, No carotid bruit. Short thick neck CARDIOVASCULAR SYSTEM: S1-S2 regular. systolic murmur + RESPIRATORY SYSTEM: Chest clear to auscultation. No wheezes rhonchi or rubs heard. No use of accessory muscles. ABDOMEN: Soft, nontender and nondistended. Normal bowel sounds present. EXTREMITIES: No cyanosis or clubbing. 1+ bilateral edema. No signs of chronic venous insufficiency. COMPUTER NETWORK SPECIALIST: Patient is alert oriented ?3. No focal neurological deficits. SKIN: Normal turgor and temperature. PSYCH: Normal insight and judgment. Data : 03/31/21 05:50 03/31/21 05:50 Other data: Right UE venous duplex IMPRESSION: 1. Focal partially occlusive superficial clot within the right cephalic vein just above the elbow. 2. No evidence of right upper extremity DVT. A&P Assessment and plan (1) CHF (congestive heart failure), NYHA class III: HFrEF (LVEF=20%); He does not have any significant CAD risk factors. -Cardiomyopathy newly diagnosed; Possibly NICM (global hypokinesis noted on echo) -lasix 40 mg IV this am; hold off on afternoon dose of lasix. -continue metoprolol succinate 25 mg and low dose entresto. -I/O charting, daily weight. -f/u BMP in morning Plan for [facility] Wednesday. Risks and benefits were discussed with the patients. Possible complications were reviewed with the patient as well. Status: Acute Qualifiers: Congestive heart failure type: unspecified Qualified Code(s): I50.9 - Heart failure, unspecified (2) Acute respiratory distress: 2/2 decompensated CHF -On RA Status: Acute Additional A&P Information Cardiomegaly Small pericardial effusion on CT: No significant effusion on TTE Elevated troponin in setting of decompensated CHF Obesity Transaminitis : resolved Suspect ROCHELLE Superficial vein partial thrombus right upper extremity venous duplex: Recommend IV placement at a different site Thank you for allowing me to participate in patient's care. Please feel free to call with questions or concerns. Attestations Medical Necessity Statement*: Needs hospitalization for newly diagnosed cardiomyopathy, further work-up and medication titration Time Spent in Patient Care: 16 - 35 minutes (>than 50% of time spent in counselling and/or direct pt care on unit). Coding Level of Care Code Acute Field Support Specialist for [employer] Fwd Diagnoses CHF (congestive heart failure), NYHA class III I50.9 Congestive heart failure type: unspecified Acute respiratory distress R06.03
[2021-03-31 16:22] LABS: Quest SARS-CoV-2 RNA NOT DETECTED (NOT DETECTED)
[2021-03-31] MEDS: sacubitril/valsartan 24-26 mg Tablet 1 EACH PO (17:48)
--- NOTE | 2021-03-31 18:11 | P.PN_ITS ---
Subjective Subjective: Interval history: Patient was seen he tells me that he can lie flat, he tells me that the CPAP helped him during the night, he slept better, he feels better this morning Vitals/I&O/Wt Last Vital Signs Temp 97.9 F 03/31/21 16:00 Pulse 106 H 03/31/21 16:00 Resp 18 03/31/21 16:00 BP 122/71 03/31/21 16:00 Pulse Ox 96 03/31/21 16:00 03/31/21 03/31/21 03/31/21 06:59 14:59 22:59 Intake Total 290 / 1130 120 / 120 Output Total 1240 / 4315 Balance -950 / -3185 120 / 120 Physical Exam Const: COMMON NORMALS: no acute distress and patient oriented x3 Resp: COMMON NORMALS: normal respiratory effort, No retractions, No use of accessory muscles and clear to auscultation bilaterally AUSCULTATION: clear to auscultation bilaterally Cardio: COMMON NORMALS: regular rate, regular rhythm, S1 normal heart sound present and S2 normal heart sound present RATE: regular rate RHYTHM: regular rhythm HEART SOUNDS: S1 normal heart sound present and S2 normal heart sound present GI: COMMON NORMALS: Normal to inspection, nondistended, normoactive bowel sounds present, Soft to palpation, non-tender, No hepatosplenomegaly present, no masses and no bruits PALPATION: Yes Soft to palpation and Yes No hepatosplenomegaly present Extremity: COMMON NORMALS: no pedal edema Neuro: COMMON NORMALS: patient oriented x3 Psych: COMMON NORMALS: mental status grossly normal Data : 03/31/21 05:50 03/31/21 05:50 A&P Assessment and plan (1) Cardiomyopathy: Possibly inherited cardiomyopathy as reports history of congestive heart failure with father passing away at age 45, grandfather 55 from CHF. HPI indicates concern regarding COVID-19 infection, although patient states this is what was thought initially when he was presenting with dyspnea about 2 weeks ago. His reports he was possibly feeling unwell at that time with low- grade prefever , but did not have any florid viral-like illness. Echocardiogram has been requested, severely decreased left ventricular ejection fraction at 20%, severe global hypokinesis, abnormal diastolic dysfunction, moderate tricuspid valve regurg Possibly some component related to sleep apnea, continue CPAP Cardiology evaluating, need for cardiac catheterization to evaluate for possible obstructive CAD Plan on cardiac catheterization tomorrow Appreciate cardiology recommendations with regards to additional assessment. Status: Acute (2) CHF (congestive heart failure), NYHA class III: Appears to have features of biventricular heart failure. Acute. Unknown at the moment whether systolic. Reports has gained close to 35-40 pounds over his baseline weight. Significant edema of legs, enlarged, some edema around flanks. Responded favorably to initial challenge with 20 mg IV Lasix. Blood pressure staying good. He felt initial bit better, complete reports again getting a bit more orthopneic. Persistent edema. Continue Lasix 40 mg IV on hold -3265, creatinine 1.0, BNP 1142. Monitor I&O. Monitor vitals. He will need quite extensive diuresis. Declined Smith for the time being. May need work release/[facility] paperwork. Status: Acute Qualifiers: Congestive heart failure type: unspecified Qualified Code(s): I50.9 - Heart failure, unspecified (3) Acute respiratory distress: With significant dyspnea on exertion, very symptomatic orthopnea, lower extremity edema. Doing well on room air at rest, but has to sit upright. Status: Acute (4) Fluid overload: Reports about 35-40 pounds over his baseline weight. As above. Status: Acute (5) Transaminitis: Suspected secondary to right heart failure, should improve with diuresis. Monitor liver parameters. Status: Acute (6) Second hand smoke exposure: He is a never smoker, marginal history information incorrect. Secondhand smoke exposure at home. Hepatitis panel negative. Status: Acute (7) Swelling of right upper extremity: Assess venous duplex, shows basilic vein DVT, will start therapeutic anticoagulation, switch to Eliquis on discharge, for least 3 months Status: Acute (8) Upper leg DVT (deep venous thromboembolism), acute: Status: Acute Additional A&P Information DVT ppx Low -risk Ambulate Attestations Medical Necessity Statement*: Patient requires hospitalization for cardiomyopathy, basilic vein DVT, proceed with cardiac cath Coding Level of Care Code Acute Color Paste Mixing Supervisor for [facility] Fwd Diagnoses Cardiomyopathy I42.9 CHF (congestive heart failure), NYHA class III I50.9 Congestive heart failure type: unspecified Acute respiratory distress R06.03 Fluid overload E87.70 Transaminitis R74.01 Second hand smoke exposure Z77.22 Swelling of right upper extremity M79.89 Upper leg DVT (deep venous thromboembolism), acute I82.4Y9
[2021-03-31] MEDS: FUROsemide 10 mg/mL SDV 2mL 20 MG IVP (22:12)
[2021-04-01] VITALS (40 sets, daily range): BP systolic 94–162; BP diastolic 51–85; PULSE 101–113; RESP 13–28; TEMP 36.4–36.6; O2SAT 95–98; BMI 42.0
[2021-04-01 05:08] LABS: Basophils # 0.1 10^3/uL (0.0-0.1); Basophils % 1.4 %; Eosinophils # 0.3 10^3/uL (0.0-0.8); Eosinophils % 2.5 %; Hematocrit 47.4 % (42.0-52.0); Hemoglobin 14.4 g/dL (11.7-16.6); Lymphocytes # 2.1 10^3/uL (0.8-4.8); Lymphocytes % 21.1 %; Mean Corpuscular HGB Conc 30.4 g/dL (30.0-36.0); Mean Corpuscular Hemoglobin 26.2 pg (28.0-34.0); Mean Corpuscular Volume 86.2 fl (80-94); Mean Platelet Volume 10.4 fL (7.4-10.4); Monocytes # 0.8 10^3/uL (0.2-0.9); Monocytes % 7.7 %; Neutrophils # 6.59 10^3/uL (1.8-7.7); Neutrophils % 66.7 %; Nucleated Red Blood Cells % 0 %; Platelet Count 244 10^3/cmm (130-400); Red Cell Distribution Width 14.3 % (12.1-15.1); White Blood Count 9.9 10^3/uL (4.0-10.0)
[2021-04-01 05:42] LABS: Alanine Aminotransferase 78 U/L (0-41); Albumin Level 3.2 g/dL (3.5-5.2); Alkaline Phosphatase 44 IU/L (40-130); Anion Gap 12.3 (5-19); Aspartate Amino Transferase 23 U/L (0-40); Blood Urea Nitrogen 16 mg/dL (6-20); Calcium 8.3 mg/dL (8.5-10.5); Carbon Dioxide 29 mmol/L (22-29); Chloride 102 mmol/L (98-107); Creatinine Clr Calc Pharmacy 138.8914; Globulin 2.6 g/dL (1.3-4.6); Glomerular Filtration Rate 77.1 mL/min (90-130); Glucose 86 mg/dL (65-115); Magnesium 1.8 mg/dL (1.7-2.3); Osmolality Calculated 288 mOsm/kg (285-295); Potassium 4.3 mmol/L (3.5-5.1); Sodium 139 mmol/L (136-145); Total Bilirubin 1.1 mg/dL (0.15-1.2); Total Protein 5.8 g/dL (6.6-8.7)
[2021-04-01] MEDS: diphenhydrAMINE 50 mg Capsule PO (05:42)
--- NOTE | 2021-04-01 07:00 | XACV_ITS ---
Exam Room: 1 Ht: 183 cm Wt: 141 kg BSA: 2.73 m2 Gender: Male : 1985 Any Known Allergies: No known allergies Exam Priority: Routine Procedure(s): Procedure Description: Diagnostic procedure Procedure Description: Left Heart Catheterization Procedure Description: Left ventriculography Procedure Description: Coronary Angiography Diagnostic Cath Status: Urgent Diagnostic Findings * No disease noted in the Left Main, Left Anterior Descending, Right, or Circumflex coronary arteries. * Coronary angiography shows right dominance. Conclusions 1. No disease noted in the Left Main, Left Anterior Descending, Right, or Circumflex coronary arteries. 2. The apex, anterior, inferior, mid posterior ferreira are hypokinetic. 3. Severe left ventricular systolic dysfunction. Ejection fraction of 15%. Recommendations * Continue current medical management and risk factor modification. Diagnostic RX Recommendation: medical therapy and/or counseling Ventriculography Ejection Fraction: 15.0 % Left Ventriculography Findings: * Severely depressed LV function 20% percent, global wall hypokinesis. * Moderately * elevated left ventricular end-diastolic pressure * 28 mmHg. Pressures Phase:Rest AO : 94 / 70 ( 77 ) @ 6:58:00 AM 92 / 70 ( 75 ) @ 7:06:00 AM 91 / 69 ( 75 ) @ 7:06:00 AM LV : @ 7:04:00 AM @ 7:05:00 AM @ 7:06:00 AM Valves Phase:DefaultPhase AV : 1.0 @ 8:12:21 AM AV Mean Gradient: 0.0 @ 8:12:21 AM Clinical Evaluation EBL: 5mL-10mL Procedural Details Pre-Procedure Time Out. Identified patient by full name and date of as verbalized by the patient/guarantor. Does the consent match the physician's order: Yes. Accurate & Complete Informed Consent: Yes. Inpatient/Outpatient History & Physical on Chart: Yes. If H&P is completed, is and addenduem needed: No. Relevant Radiology Images available: Yes. Pre-op teaching completed and patient verbalized understanding. The risks, benefits, and alternatives of sedation and/or procedure were discussed by physician. The patient agrees to continue. Procedure started. [facility] Clinical Fraility Score: 2: Well. Generalist Indications: LV Dysfunction. Chest Pain Symptom Assessment: Non-anginal Chest Pain. Cardiovascular Instability: No. PERRLA. Strong, equal hand vp of product bilaterally. Lungs clear x 5 lobes. IV Site on Arrival: 18 gauge in the right anticubital. IV Site on Arrival: 20 gauge in the left hand. IV Fluids: 0.9% NaCl at KVO. 0 mL infused prior to lab assistant. Pre Procedural Pulses: bilateral dorsalis pedis was 2+. Pre Procedural Pulses: bilateral posterior tibial was 2+. Pre Procedural Pulses: bilateral radial was 3+. Oxygen started at 2liters/min via nasal canula. right groin was prepped with chloroprep then draped in the usual sterile fashion. right radial was prepped with chloroprep then draped in the usual sterile fashion. Physician notified. Physician arrived. Patient's family unavailable. Equipment: 5F - Radial. Cardiac Cath Pack. ACIST Manifold Kit Model BT 2000. Heparinized Saline (2 units/mL), 1000 mL bag. Physician scrubbed in. Immediate Pre-Procedure Time Out. Correct Patient: Yes; Correct Procedure: Yes; Correct Site: Yes; Correct Patient Position: Yes; Correct Supplies: Yes; Dried Flammable Prep: Yes; Blood Products Available: N/A;. Lidocaine 1% infiltrated to the right radial. Arterial access obtained. A 5 polish JR5 catheter in over wire. A 5 polish Aiden catheter in over the exchange wire. Multiple views taken of left coronary artery. Catheter redirected to the RCA. Multiple views taken of right coronary artery. Catheter removed over the exchange wire. A 5 polish Angled Pig catheter in over the exchange wire. EDP Sample taken: LV 91/5,28; HR: 98 BPM; SpO2: 97%. LV gram performed in MÉNDEZ @ 10 mL/second for a total of 20 mL. EDP Sample taken: LV 91/4,27; HR: 99 BPM; SpO2: 97%. Pullback taken: LV 93/5,29; AO 92/70(75); Mean: 0mmHg, Peak to Peak: 1mmHg, SEP: 8sec/min; HR: 100 BPM; SpO2: 97%. Catheter removed over the exchange wire. Physician scrubbed out. A TR Band was successful obtaining hemostatsis at the Right Radial artery insertion site. TR band placed. Hemostasis obtained. Post Procedure: Pulses reassessed and unchanged. PERRLA. Strong, equal hand vp of product bilaterally. No VTE prophylaxis required. Medication's Wasted: Lidocaine 1% = 18 mL. Medication's Wasted: Heparin = 1000 units. Total IV fluids: 20 mL. Medication's Wasted: Nitro = 49.8 mg. Post-op diagnosis: Normal coronaries,Non-ischemic BILLPOSTER, Severe LV Dysfunction with EF 15%. Complications: none. The spouse was updated by Dr. Mccoy. Estimated blood loss: 5mL-10mL. Procedure completed. Patient transferred by wheelchair to 1st floor. Vital chart was stopped. Access Site Site: Right Radial artery Sheath Size: 5 Fr Hemostasis Method: TR Band Hemostasis Success: Successful Procedure Medications Start: 7:39 AM Stop: 7:39 AM Medication: Versed Amount: 1 mg Route: I.V. Start: 7:39 AM Stop: 7:39 AM Medication: Fentanyl Amount: 50 mcg Route: I.V. Start: 7:51 AM Stop: 7:51 AM Medication: Versed Amount: 1 mg Route: I.V. Start: 7:51 AM Stop: 7:51 AM Medication: Lopressor (metoprolol) Amount: 5 mg Route: I.V. Start: 7:54 AM Stop: 7:54 AM Medication: Nitrogylcerin Amount: 200 mcg Route: I.A. Start: 7:57 AM Stop: 7:57 AM Medication: Heparin Amount: 5000 units Route: I.V. Start: 8:06 AM Stop: 8:06 AM Medication: Fentanyl Amount: 50 mcg Route: I.V. I, the attending physician, have reviewed and verified all procedure medications. Yes, all medications given per verbal order History/Risk Factors Hypertension: No Dyslipidemia: No Peripheral Arterial Disease (PAD): No Myocardial Infarction (OK): No Obesity: No Renal Disease: No Prior Interventions PCI: No CABG: No Valve Surgery: No Report Signatures Finalized by Andree Mccoy MD on 04/15/2021 09:05 PM
--- NOTE | 2021-04-01 07:39 | W.PM.OPSUD ---
Surgery/Procedure H&P Update DATE OF PROCEDURE: April 01, 2021 DATE H&P PERFORMED: 03/29/21 H&P UPDATE INFORMATION: I have reviewed H&P completed within last 30 days, I have examined patient prior to procedure and No changes to prior documentation PREOP DIAGNOSIS: Congestive heart failure new onset, severe LV dysfunction 20% ejection frac PATIENT REASSESSED PRIOR TO SEDATION, WITH NO CHANGE NOTED: Yes PHYSICAL EXAM: alert, oriented x 3 and clear to auscultation bilaterally AIRWAY EVAL/ANESTHESIA PLAN: ASA II, Risks, benefits & alternatives of sedation and/or procedure discussed and Patient agrees to continue as planned ADDITIONAL INFORMATION: Patient has been explained all risk benefit and alternative for the procedure he has been explained risk for stroke major minor bleed urgent emergent bypass surgery hematoma infection. He would like to proceed with it.
[2021-04-01 11:44] LABS: Erythrocyte Sedimentation Rate 2 mm/hr (0-10)
[2021-04-01] MEDS: aspirin 325 mg Tablet PO (11:45)
[2021-04-01] MEDS: sacubitril/valsartan 24-26 mg Tablet 1 EACH PO (11:45)
[2021-04-01] MEDS: FUROsemide 10 mg/mL SDV 4mL 40 MG IVP (11:48)
[2021-04-01] MEDS: metoprolol succinate ER (24 HR) 25 mg Tablet PO (11:57)
--- NOTE | 2021-04-01 13:16 | PM.PN ---
Subjective Subjective: Interval history: Patient feels better this morning Patient underwent left heart cath this morning with normal coronaries. LVEDP of 28. Medications: Reviewed: Yes Vitals/I&O/Wt Last Vital Signs Temp 97.6 F 04/01/21 04:00 Pulse 107 H 04/01/21 04:00 Resp 18 04/01/21 04:00 BP 101/63 04/01/21 04:00 Pulse Ox 97 04/01/21 04:00 03/31/21 04/01/21 04/01/21 22:59 06:59 14:59 Intake Total 240 / 360 Output Total 1550 / 1550 Balance -1310 / -1190 Weight last 48 hrs Weight 310 lb Physical Exam Narrative: EXAM NARRATIVE: GENERAL: obese man in no acute distress HEENT: Pupils equal round reactive to light. No pallor or icterus. NECK:Elevated JVD, No carotid bruit. Short thick neck CARDIOVASCULAR SYSTEM: S1-S2 regular. systolic murmur + RESPIRATORY SYSTEM: Chest clear to auscultation. No wheezes rhonchi or rubs heard. No use of accessory muscles. ABDOMEN: Soft, nontender and nondistended. Normal bowel sounds present. EXTREMITIES: No cyanosis or clubbing. 1+ bilateral edema. No signs of chronic venous insufficiency. R wrist TR band inplace TODDLER NANNY: Patient is alert oriented ?3. No focal neurological deficits. SKIN: Normal turgor and temperature. PSYCH: Normal insight and judgment. Data : 04/01/21 04:55 04/01/21 04:55 A&P Assessment and plan (1) CHF (congestive heart failure), NYHA class III: Dilated cardiomyopathy; NYHA class III symptoms HFrEF (LVEF=20%); He does not have any significant CAD risk factors. -Cardiomyopathy newly diagnosed; NICM (global hypokinesis noted on echo, normal coronaries on cardiac catheterization) -Unclear etiology at this time. Possible differentials being viral/idiopathic/familial. No drug use (smoked weed and meth when he was 22; never smoked; is a smoker) -viral panel pending. Family h/o CHF in father in his 40's. I will consider genetic testing as an outpatient. -continue metoprolol succinate 25 mg and low dose entresto. -Discharged home on Lasix 40 mg p.o. twice daily -Follow-up BMP in 1 week -Follow-up with me in [facility] in 1 week. - LifeVest on discharge. Status: Acute Qualifiers: Congestive heart failure type: unspecified Qualified Code(s): I50.9 - Heart failure, unspecified (2) Acute respiratory distress: 2/2 decompensated CHF -On RA Status: Acute Additional A&P Information Cardiomegaly Small pericardial effusion on CT: No significant effusion on TTE Elevated troponin in setting of decompensated CHF Obesity Transaminitis : resolved Suspect ROCHELLE: Sleep study as an outpatient Superficial vein partial thrombus right upper extremity venous duplex: Recommend IV placement at a different site Thank you for allowing me to participate in patient's care. Please feel free to call with questions or concerns. Attestations Medical Necessity Statement*: stable to be discharged from cardiac stanpoint. Time Spent in Patient Care: 16 - 35 minutes (>than 50% of time spent in counselling and/or direct pt care on unit). Coding Level of Care Code Acute Nail Assembly Machine Operator for Baljinder Reyna Diagnoses CHF (congestive heart failure), NYHA class III I50.9 Congestive heart failure type: unspecified Acute respiratory distress R06.03 Snoring R06.83
--- NOTE | 2021-04-01 13:43 | PM.DCS ---
Discharge Providers Date of Admission: 03/29/21 20:38 Date of Discharge: April 01, 2021 Attending Provider at Admission: Jimmy Reyes Attending Provider at Discharge: Phillip Farooq MD Diagnoses at Discharge Discharge Diagnosis (1) CHF (congestive heart failure), NYHA class III: Status: Acute Qualifiers: Congestive heart failure type: unspecified Qualified Code(s): I50.9 - Heart failure, unspecified (2) Acute respiratory distress: Status: Acute Reason for Visit Reason for Visit: Sob Hospital Course Hospital Course This is a 35-year-old male with a past medical history of tobacco abuse, who presents to [facility] due to shortness of breath Patient was admitted to [facility] for shortness of breath secondary to new onset Congestive heart failure, systolic, with cardiomyopathy, echocardiogram showed an ejection fraction of 15 to 20%, he received inpatient diuresis, symptomology significantly improved, cardiology was consulted, underwent cardiac catheterization, no obstructive CAD. Unlikely to be stress-induced cardiomyopathy, although he is having marital issues, and issues surrounding his children. But likely etiology behind new onset systolic CHF and cardiomyopathy is viral in etiology, however ROCHELLE could also be playing a role. He will be discharged on Lasix 40 mg twice daily, with potassium replacement, with recheck kidney function in 1 week, follow-up with cardiology in 1 week. In addition to metoprolol, Entresto. He was advised if he were to have chest pain, worsening shortness of breath go to emergency room. Patient developed swelling right upper extremity, was found to have a basilic vein DVT, managed with therapeutic anticoagulation, discharged on Eliquis for at least 3 months, follow-up with primary care provider Patient has clinical evidence of obstructive sleep apnea, including snoring, lack of restful sleep, with new onset CHF as above, it is imperative for him to have a urgent sleep study for CPAP machine. Patient tolerated CPAP machine as inpatient well, had improved sleep, restful sleep, improvement in his symptomatology. I have ordered him a sleep study, follow-up with primary care provider for results and titration studies. Physical Exam Const: COMMON NORMALS: no acute distress and patient oriented x3 Resp: COMMON NORMALS: normal respiratory effort, No retractions, No use of accessory muscles and clear to auscultation bilaterally AUSCULTATION: clear to auscultation bilaterally Cardio: COMMON NORMALS: regular rate, regular rhythm, S1 normal heart sound present and S2 normal heart sound present RATE: regular rate RHYTHM: regular rhythm HEART SOUNDS: S1 normal heart sound present and S2 normal heart sound present GI: COMMON NORMALS: Normal to inspection, nondistended, normoactive bowel sounds present, Soft to palpation and non-tender PALPATION: Yes Soft to palpation Extremity: COMMON NORMALS: no pedal edema Neuro: COMMON NORMALS: patient oriented x3 Psych: COMMON NORMALS: mental status grossly normal Discharge Data Data Completed and Pending: Completed Studies During Hospitalization Category Date Time Status CT angio chest PE protcl [id number] Stat Cat Scan 03/28/21 20:18 Completed XR chest 1V iraida ble [id number] Routine Exams 03/29/21 04:00 Completed XR chest 1V iraida ble [id number] Urgent Exams 03/28/21 19:42 [place] [id number] Routin e Ultrasound 03/30/21 20:36 Completed CV. 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 service Routin e Exams 04/01/21 07:00 Taken Blood Culture Sta t Lab 03/28/21 20:03 Results Respiratory Viral Panel PCR Routine Lab 03/30/21 21:20 Received Labs from last 24 hours 04/01/21 04/01/21 03/30/21 04:55 04:55 21:20 WBC 9.9 RBC 5.50 H Hgb 14.4 Hct 47.4 MCV 86.2 MCH 26.2 L MCHC 30.4 RDW 14.3 Plt Count 244 MPV 10.4 Neut % (Auto) 66.7 Lymph % (Auto) 21.1 [place] % (Auto) 7.7 Eos % (Auto) 2.5 Baso % (Auto) 1.4 Neut # (Auto) 6.59 Lymph # (Auto) 2.1 [place] # (Auto) 0.8 Eos # (Auto) 0.3 Baso # (Auto) 0.1 Nucleated RBC % (a uto) 0 Nucleated RBCs # 0.0 ESR Sodium 139 Potassium 4.3 Chloride 102 Carbon Dioxide 29 Anion Gap 12.3 BUN 16 Creatinine 1.1 GFR Calculation 77.1 L Glucose 86 Calculated Osmolal ity 288 Calcium 8.3 L Magnesium 1.8 Total Bilirubin 1.1 AST 23 ALT 78 H Alkaline Phosphata se 44 Total Protein 5.8 L Albumin 3.2 L Globulin 2.6 RSV Nasal Swab Pending RSV Nasal Swab Int Cntl Pending Adenovirus (PCR) Pending Human Metapneumovi r PCR Pending Influenza A (RT-PC R) Pending Influenza A (H1) P CR Pending Influenza A (H3) P CR Pending Influenza B (RT-PC R) Pending Parainfluenzae Typ e 1 Pending Parainfluenzae Typ e 2 Pending Parainfluenzae Typ e 3 Pending RSV Ab Comment Pending Rhinovirus (PCR) Pending SARS-CoV-2 RNA (RT -PCR) 03/30/21 03/30/21 06:20 00:18 WBC RBC Hgb Hct MCV MCH MCHC RDW Plt Count MPV Neut % (Auto) Lymph % (Auto) [place] % (Auto) Eos % (Auto) Baso % (Auto) Neut # (Auto) Lymph # (Auto) [place] # (Auto) Eos # (Auto) Baso # (Auto) Nucleated RBC % (a uto) Nucleated RBCs # ESR 2 Sodium Potassium Chloride Carbon Dioxide Anion Gap BUN Creatinine GFR Calculation Glucose Calculated Osmolal ity Calcium Magnesium Total Bilirubin AST ALT Alkaline Phosphata se Total Protein Albumin Globulin RSV Nasal Swab RSV Nasal Swab Int Cntl Adenovirus (PCR) Human Metapneumovi r PCR Influenza A (RT-PC R) Influenza A (H1) P CR Influenza A (H3) P CR Influenza B (RT-PC R) Parainfluenzae Typ e 1 Parainfluenzae Typ e 2 Parainfluenzae Typ e 3 RSV Ab Comment Rhinovirus (PCR) SARS-CoV-2 RNA (RT -PCR) Not detected Vitals: Last Vital Signs Temp 97.6 F 04/01/21 04:00 Pulse 107 H 04/01/21 04:00 Resp 18 04/01/21 04:00 BP 101/63 04/01/21 04:00 Pulse Ox 97 04/01/21 04:00 Discharge Plan Discharge Patient Disposition: Home Condition: Stable Prescriptions: Brandt Esparza DVT-PE Treat 30D Start 5 mg (74 tabs) tablets,dose pack See Rx Instructions .ROUTE .COMPLEX Qty: 74 RF: 0 Entresto 24-26 mg Tablet 1 ea PO BID 30 Days Qty: 60 RF: 0 metoprolol succinate 25 mg Tablet Extended Release 24 Hr 25 mg PO DAILY 30 Days Qty: 30 RF: 0 furosemide [Lasix] 40 mg tablet 40 mg PO BID 30 Days Qty: 60 RF: 0 potassium chloride [Klor-Con M20] 20 mEq tablet,ER particles/crystals 20 meq PO DAILY 30 Days Qty: 30 RF: 0 No Action No Known Home Medications RF: 0 Discharge Orders: Discharge Order (Routine); Ordered 04/01/21 Ordered By: Phillip Farooq Other Ambulatory Orders: Sleep Study W Sleep Stage (Routine) Timeframe: 1 Day Facility: [facility] - Location: [facility] Ordered By: Phillip Farooq Referrals: Padmaja Pastrana MD [Physician] - 7-10 days Discharge Diet: Cardiac Discharge Activity: Resume usual activity Patient Instructions: Opioid Safety Activity Restrictions/Additional Instructions: -For your basilic vein DVT, take Eliquis as prescribed, follow-up with primary care provider for further refill, anticoagulation only required for 3 months -For your heart failure, take medications as prescribed -If you have chest pain come back to emergency room -Please avoid smoking or smoke exposure -Please follow-up with primary care provider this week for repeat blood work, CMP check kidney function, potassium -Please follow-up with primary care provider for sleep study results Discharge Attestations Time Spent in Discharge Care*: less than 30 min Quality Metrics Clinical Quality Measures During this hospital stay, did patient experience: VTE Contraindication to Overlap Therapy: Overlap treatment not indicated VTE Discharge Education: Education about anticoagulant therapy/Care Notes given Coding Level of Care Code Acute [facility] note Diagnoses CHF (congestive heart failure), NYHA class III I50.9 Congestive heart failure type: unspecified Acute respiratory distress R06.03
--- NOTE | 2021-04-01 13:47 | PC.NURSE ---
received from cardiac cardiac cath lab radiology technologist at 0820.report received.no intervention.pt is alert and awake.denies pain.sr-st on monitor.right wrist with tr band on and inflated.right hand is warm to touch and with brisk capillary refill.palpable radial pulse noted distal to tr band.no hematoma noted.instructed in activity restrictions distal to tr band and instructed to notify staff for any bleeding,bruising,pain,numbness...or for any concerns at all.pt verb understanding of instructions
--- NOTE | 2021-04-01 17:20 | PC.SOCIAL ---
Entresto not approved due to patient not being on ARB or Jon Inhibitor for 4-6 weeks before ordering this medication. Dr Farooq notified consulted with Dr Pastrana and will cancel this drug and do Entresto 25mg once daily. Dr Farooq updated medication.
--- NOTE | 2021-04-01 18:35 | PC.NURSE ---
discharge instructions given and explained .pt verb understanding.medications provided by meds to beds program by [facility].discharged at this time.
[2021-04-04 15:58] LABS: Adenovirus Not Detected (Not Detected); Human Metapneumovirus Not Detected (Not Detected); Human Parainflu Virus 1 Not Detected (Not Detected); Human Parainflu Virus 2 Not Detected (Not Detected); Human Parainflu Virus 3 Not Detected (Not Detected); Human Rsv A Not Detected (Not Detected); Influenza A Not Detected (Not Detected); Influenza B Not Detected (Not Detected); Rhinovirus/Enterovirus Not Detected (Not Detected)
== END 2021-04-01 18:37 | disposition home or self-care (01) | DRG 287 ==
LOC: ER 23:08 → MEDSURG 23:11 → CSU 04-01 08:34
PROVIDERS: Internal Medicine; Internal Medicine Cardiovascular Disease; Admitting Provider Hospitalist; Emergency Provider Emergency Medicine; Visit Provider Family Medicine
PROC: 4A023N7 Measurement of Cardiac Sampling and Pressure, Left Heart, Percutaneous Approach (ICD-10-PCS; principal; 2021-04-01 07:00)
DX: I50.21 Acute systolic (congestive) heart failure (principal); Z68.41 Body mass index [BMI] 40.0-44.9, adult; I31.3 Pericardial effusion (noninflammatory); I42.0 Dilated cardiomyopathy; I82.621 Acute embolism and thrombosis of deep veins of right upper extremity; Z82.49 Family history of ischemic heart disease and other diseases of the circulatory system; E66.9 Obesity, unspecified; I50.82 Biventricular heart failure; Z77.22 Contact with and (suspected) exposure to environmental tobacco smoke (acute) (chronic); M79.89 Other specified soft tissue disorders; G47.33 Obstructive sleep apnea (adult) (pediatric)
CPT/HCPCS: 36415; 71045; 71275; 80053; 80061; 80074; 83036; 83605; 83735; 83880; 84145; 84443; 84484; 85025; 85378; 85651; 86140; 87040; 87426; 87635; 93005; 93306; 93452; 93971; 94640; 94660; 94664; 94762; 96360; 96372; 99285; C1769; C1887; C1894; G0378; J1644; J1650; J1940; J2250; J3010; J3490; J7030; Q0163; Q9967

== ENCOUNTER 2021-04-18 11:13 | Observation (INO) | payer OTHER, SELFPAY ==
[2021-04-18] VITALS (12 sets, daily range): BP systolic 97–127; BP diastolic 58–87; PULSE 93–105; RESP 18–31; TEMP 36.7–36.9; O2SAT 95–100; BMI 42.3
--- NOTE | 2021-04-18 12:06 | XR_ITS ---
WS: [id number] PORTABLE CHEST HISTORY: sob COMPARISON: 03/29/2021 Lungs are hyperinflated. Previously described CHF has resolved. No pneumonia. No pleural effusion or pneumothorax. Cardiac size: Moderately enlarged cardiac silhouette is similar to the prior study. Suspect atrial en largement. Mediastinum/Aorta: Normal mediastinum. No osseous abnormality seen. XR/XR chest 1V portable [id number] IMPRESSION: 1. No pneumonia. 2. Resolved CHF since 03/29/2021. 3. Cardiomegaly, likely atrial enlargement.
--- NOTE | 2021-04-18 12:06 | ECG_ITS ---
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1985 Requested By: Richard Villa Order Number: [id number] Luciano MD: ERMA BETH Measurements Intervals [place] Rate: 94 P: 57 AL: 152 QRS: -13 QRSD: 106 T: 112 QT: 375 QTc: 471 Interpretive Statements SINUS RHYTHM POSSIBLE RIGHT VENTRICULAR CONDUCTION DELAY [RSR (QR) IN V1/V2] LEFT VENTRICULAR HYPERTROPHY AND ST-T CHANGE [VOLTAGE CRITERIA PLUS ST/T ABNORMALITY] Compared to ECG 03/29/2021 02:40:36 ST (T wave) deviation now present Sinus tachycardia no longer present T-wave abnormality no longer present Possible ischemia no longer present Electronically Signed On 04-19-2021 0:00:52 CDT by ERMA BETH [id number]
[2021-04-18 12:34] LABS: Basophils # 0.2 10^3/uL (0.0-0.1); Basophils % 1.6 %; Eosinophils # 0.2 10^3/uL (0.0-0.8); Eosinophils % 1.6 %; Hematocrit 48.9 % (42.0-52.0); Hemoglobin 15.6 g/dL (11.7-16.6); Lymphocytes # 2.3 10^3/uL (0.8-4.8); Lymphocytes % 24.4 %; Mean Corpuscular HGB Conc 31.9 g/dL (30.0-36.0); Mean Corpuscular Hemoglobin 26.2 pg (28.0-34.0); Mean Platelet Volume 11.2 fL (7.4-10.4); Monocytes # 0.8 10^3/uL (0.2-0.9); Monocytes % 8.1 %; Neutrophils # 5.93 10^3/uL (1.8-7.7); Neutrophils % 63.7 %; Nucleated Red Blood Cells % 0 %; Platelet Count 279 10^3/cmm (130-400); Red Blood Count 5.96 10^6/uL (4.1-5.3); Red Cell Distribution Width 13.7 % (12.1-15.1); White Blood Count 9.3 10^3/uL (4.0-10.0)
--- NOTE | 2021-04-18 12:37 | W.ED.GENADLT ---
Documented by User: PARKER Gardiner 04/18/21 14:25 HPI - General Adult General: Chief complaint: General Medical Stated complaint: retaining water Time Seen by Provider: 04/18/21 12:06 History of Present Illness: HPI narrative: Patient is a 35-year-old male comes to the ED with fluid retention. Patient was recently diagnosed with heart failure approximately 3 weeks ago. He is currently on spironolactone and 40 mg of Lasix 2 times a day. Patient says doctor was unsure what caused his heart failure. He states within the last week he has gained approximately 20 pounds. He feels a lot of fluid retention in his legs bilaterally and abdomen. He endorses having some shortness of breath upon exertion or when he lays flat. He endorses having a cough recently that he describes's productive with a clear sputum. he denies any chest pain, fever, chills, abdominal pain, nausea/vomiting, bladder or bowel symptoms. Associated symptoms: Reports dyspnea; Deny chest pain, headache(s), nausea, rash, palpitations, syncope or vomiting Review of Systems Const: Denies: fever(s), chills or fatigue Eyes: Denies: change in vision or eye discomfort ENMT: Denies: throat pain, odynophagia, nasal discharge or nasal congestion Card: Reports: dyspnea on exertion and orthopnea; Denies: chest pain, palpitations, edema, swelling of feet/ankles, syncope or pre-syncope Resp: Reports: dyspnea and productive cough; Denies: non-productive cough GI: Denies: abdominal pain, nausea, vomiting, diarrhea, constipation or hematochezia : Denies: flank pain, difficulty urinating, dysuria or hematuria Musc: Reports: extremity swelling (bilateral leg swelling); Denies: neck pain or back pain Skin/Breast: Denies: rash or new lesions Neuro: Denies: headache(s), numbness in extremities or weakness in extremities PFS ED PFSH: Medical History CHF (congestive heart failure), NYHA class III Non-ischemic cardiomyopathy Normal coronary angiogram Second hand smoke exposure Upper leg DVT (deep venous thromboembolism), acute Surgical History History of cardiac cath No pertinent past surgical history Family History Father CHF (congestive heart failure) Other CAD (coronary artery disease) Social History Smoking and tobacco status: never smoked Second hand smoke exposure: Yes Alcohol intake: current Alcohol intake frequency: holidays/special occasions only Physical Exam Const: COMMON NORMALS: no acute distress, patient oriented x3 and alert GENERAL APPEARANCE: cooperative and comfortable NUTRITIONAL APPEARANCE: obese HENMT: COMMON NORMALS: normocephalic HEAD & SCALP: normocephalic MOUTH: Normal oral and palatal mucosa present THROAT: posterior oropharynx normal and uvula midline Eye: COMMON NORMALS: Equal, round and reactive pupils present PUPIL: Yes Equal, round and reactive pupils present Neck/C-Spine: COMMON NORMALS: supple GENERAL: Yes normal visual inspection Resp: COMMON NORMALS: normal respiratory effort, No retractions, No use of accessory muscles and clear to auscultation bilaterally AUSCULTATION: clear to auscultation bilaterally Cardio: COMMON NORMALS: regular rate, regular rhythm, S1 normal heart sound present, S2 normal heart sound present, No gallops present (Cardio), No clicks present (Cardio), No murmurs present (Cardio) and Peripheral pulses 2+ throughout RATE: regular rate RHYTHM: regular rhythm HEART SOUNDS: S1 normal heart sound present and S2 normal heart sound present PERIPHERAL PULSES: Peripheral pulses 2+ throughout GI: COMMON NORMALS: Normal to inspection, nondistended, normoactive bowel sounds present, Soft to palpation, non-tender and no masses INSPECTION: Yes central obesity PALPATION: Yes Soft to palpation : COMMON NORMALS: Yes no CVA tenderness BLADDER/KIDNEY EXAM: Yes no CVA tenderness Back/Pelvis: COMMON NORMALS: no CVA tenderness Extremity: GENERAL: Yes edema (1+ pitting edema in legs bilaterally.) Neuro: COMMON NORMALS: patient oriented x3 and moves all extremities SENSORIUM/ORIENTATION: Yes alert Skin: GENERAL SKIN EXAM: dry skin Course Vital Signs: Vital signs: Vital Signs Temperature 98.1 F 04/18/21 12:26 Pulse Rate 97 04/18/21 14:22 Respiratory Rate 18 04/18/21 12:26 Blood Pressure 127/87 04/18/21 14:22 Pulse Oximetry 96 04/18/21 14:22 MDM - General Adult MDM Narrative: Medical decision making narrative: I performed the initial history and physical exam and lab order work-up for patient. Patient has a history of CHF and cardiomyopathy. He is here in the ED for increased fluid retention and shortness of breath when laying flat or upon exertion. While performing exam patient appeared in no acute distress or pain and lung sounds were clear to auscultation bilaterally. He had 1+ pitting edema bilaterally in the lower extremities. While I was in the room with patient he had multiple blood pressures at 80's/60's. The rest of patient's vitals were normal. Due to patient's complexity and acuity of case due to medical history, increased fluid retention and hypotension, I consulted Dr. Petit ED doctor about patient case and signed patient care over to him so we can take over management of patient. Dr. Petit understood and accepted care of patient. Lab Data: Attestation: I reviewed the patient's lab results. Labs: Lab Results 04/18/21 04/18/21 04/18/21 12:26 12:26 12:26 WBC 9.3 10^3/uL 10^3/ uL (4.0-10.0) RBC 5.96 10^6/uL H 10 ^6/uL (4.1-5.3) Hgb 15.6 g/dL g/dL (11.7-16.6) Hct 48.9 % % (42.0-52.0) MCV 82.0 fl fl (80-94) MCH 26.2 pg L pg (28.0-34.0) MCHC 31.9 g/dL g/dL (30.0-36.0) RDW 13.7 % % (12.1-15.1) Plt Count 279 10^3/cmm 10^3 /cmm (130-400) MPV 11.2 fL H fL (7.4-10.4) Neut % (Auto) 63.7 % % Lymph % (Auto) 24.4 % % [place] % (Auto) 8.1 % % Eos % (Auto) 1.6 % % Baso % (Auto) 1.6 % % Neut # (Auto) 5.93 10^3/uL 10^3 /uL (1.8-7.7) Lymph # (Auto) 2.3 10^3/uL 10^3/ uL (0.8-4.8) [place] # (Auto) 0.8 10^3/uL 10^3/ uL (0.2-0.9) Eos # (Auto) 0.2 10^3/uL 10^3/ uL (0.0-0.8) Baso # (Auto) 0.2 10^3/uL H 10^ 3/uL (0.0-0.1) Nucleated RBC % (a uto) 0 % % Nucleated RBCs # 0.0 /100WBC /100W BC Sodium 139 mmol/L mmol/L (136-145) Potassium 4.9 mmol/L mmol/L (3.5-5.1) Chloride 102 mmol/L mmol/L (98-107) Carbon Dioxide 26 mmol/L mmol/L (22-29) Anion Gap 15.9 (5-19) BUN 22 mg/dL H mg/dL (6-20) Creatinine 1.0 mg/dL mg/dL (0.7-1.2) GFR Calculation 86.1 mL/min L mL/ min (90-130) Glucose 103 mg/dL mg/dL (65-115) Calculated Osmolal ity 292 mOsm/kg mOsm/ kg (285-295) Calcium 9.0 mg/dL mg/dL (8.5-10.5) Total Bilirubin 0.5 mg/dL mg/dL (0.15-1.2) AST 46 U/L H U/L (0-40) ALT 89 U/L H U/L (0-41) Alkaline Phosphata se 52 IU/L IU/L (40-130) Troponin T Baselin e 26 ng/L H ng/L (0-15) C-Reactive Protein NT-Pro-B Natriuret Pep 1035 pg/mL H pg/m L (0-125) Total Protein 6.3 g/dL L g/dL (6.6-8.7) Albumin 4.1 g/dL g/dL (3.5-5.2) Globulin 2.2 g/dL g/dL (1.3-4.6) Procalcitonin 04/18/21 12:26 WBC RBC Hgb Hct MCV MCH MCHC RDW Plt Count MPV Neut % (Auto) Lymph % (Auto) [place] % (Auto) Eos % (Auto) Baso % (Auto) Neut # (Auto) Lymph # (Auto) [place] # (Auto) Eos # (Auto) Baso # (Auto) Nucleated RBC % (a uto) Nucleated RBCs # Sodium Potassium Chloride Carbon Dioxide Anion Gap BUN Creatinine GFR Calculation Glucose Calculated Osmolal ity Calcium Total Bilirubin AST ALT Alkaline Phosphata se Troponin T Baselin e C-Reactive Protein 6.8 mg/L H mg/L (0.0-4.9) NT-Pro-B Natriuret Pep Total Protein Albumin Globulin Procalcitonin 0.08 ng/mL ng/mL (0-0.5) Discharge Plan Discharge Prescriptions: No Action spironolactone 25 mg tablet 25 mg PO DAILY Qty: 90 RF: 3 Eliquis DVT-PE Treat 30D Start 5 mg (74 tabs) tablets,dose pack See Rx Instructions .ROUTE .COMPLEX Qty: 74 RF: 0 furosemide [Lasix] 40 mg tablet 40 mg PO BID 30 Days Qty: 60 RF: 0 losartan 25 mg tablet 25 mg PO DAILY 30 Days Qty: 30 RF: 0 metoprolol succinate 25 mg tablet extended release 24 hr 25 mg PO BID RF: 0 Coding Level of Care Code ED Special Technical Operations Officer for Chg Fwd Exam Comprehensive Documented by User: Marlyn Petit MD 04/18/21 14:55 HPI - General Adult General: Chief complaint: General Medical Stated complaint: retaining water Time Seen by Provider: 04/18/21 12:06 [facility] ED PFSH: Medical History CHF (congestive heart failure), NYHA class III Non-ischemic cardiomyopathy Normal coronary angiogram Second hand smoke exposure Upper leg DVT (deep venous thromboembolism), acute Surgical History History of cardiac cath No pertinent past surgical history Family History Father CHF (congestive heart failure) Other CAD (coronary artery disease) Social History Smoking and tobacco status: never smoked Second hand smoke exposure: Yes Alcohol intake: current Alcohol intake frequency: holidays/special occasions only Course Vital Signs: Vital signs: Vital Signs Temperature 98.1 F 04/18/21 12:26 Pulse Rate 97 04/18/21 14:22 Respiratory Rate 18 04/18/21 12:26 Blood Pressure 127/87 04/18/21 14:22 Pulse Oximetry 96 04/18/21 14:22 MDM - General Adult MDM Narrative: Medical decision making narrative: 35-year-old male with a history of systolic heart failure with EF of 15 to 20% presented to emergency room with concerns of increased weight gain shortness of breath despite compliance with furosemide 40 mg twice daily. Patient is followed by Dr. Castellanos. On exam, patient appears to be edematous with coarse breath sounds bilaterally. No signs of respiratory distress, O2 sat of 92 to 94%. Initially while patient was triaged, he had a blood pressure 110/50. However on reassessment of emergency, patient was had a blood pressure of 70/40. Patient has no signs of shock, respiratory distress, altered mental status. At the present time, patient will be started on peirpheral porepinephrine with plan for pressor/inotrope assisted diuresis. Case will be followed by Dr. Cornejo. 80 mg of Lasix is ordered. Patient is currently on 5 mcg of nor epi while getting diuresed. Pressure improved after getting diuresed. Norepi getting tapered off. Will be moved to stepdown for further evaluation. Lab Data: Labs: Lab Results 04/18/21 04/18/21 04/18/21 12:26 12:26 12:26 WBC 9.3 10^3/uL 10^3/ uL (4.0-10.0) RBC 5.96 10^6/uL H 10 ^6/uL (4.1-5.3) Hgb 15.6 g/dL g/dL (11.7-16.6) Hct 48.9 % % (42.0-52.0) MCV 82.0 fl fl (80-94) MCH 26.2 pg L pg (28.0-34.0) MCHC 31.9 g/dL g/dL (30.0-36.0) RDW 13.7 % % (12.1-15.1) Plt Count 279 10^3/cmm 10^3 /cmm (130-400) MPV 11.2 fL H fL (7.4-10.4) Neut % (Auto) 63.7 % % Lymph % (Auto) 24.4 % % [place] % (Auto) 8.1 % % Eos % (Auto) 1.6 % % Baso % (Auto) 1.6 % % Neut # (Auto) 5.93 10^3/uL 10^3 /uL (1.8-7.7) Lymph # (Auto) 2.3 10^3/uL 10^3/ uL (0.8-4.8) [place] # (Auto) 0.8 10^3/uL 10^3/ uL (0.2-0.9) Eos # (Auto) 0.2 10^3/uL 10^3/ uL (0.0-0.8) Baso # (Auto) 0.2 10^3/uL H 10^ 3/uL (0.0-0.1) Nucleated RBC % (a uto) 0 % % Nucleated RBCs # 0.0 /100WBC /100W BC Sodium 139 mmol/L mmol/L (136-145) Potassium 4.9 mmol/L mmol/L (3.5-5.1) Chloride 102 mmol/L mmol/L (98-107) Carbon Dioxide 26 mmol/L mmol/L (22-29) Anion Gap 15.9 (5-19) BUN 22 mg/dL H mg/dL (6-20) Creatinine 1.0 mg/dL mg/dL (0.7-1.2) GFR Calculation 86.1 mL/min L mL/ min (90-130) Glucose 103 mg/dL mg/dL (65-115) Calculated Osmolal ity 292 mOsm/kg mOsm/ kg (285-295) Calcium 9.0 mg/dL mg/dL (8.5-10.5) Total Bilirubin 0.5 mg/dL mg/dL (0.15-1.2) AST 46 U/L H U/L (0-40) ALT 89 U/L H U/L (0-41) Alkaline Phosphata se 52 IU/L IU/L (40-130) Troponin T Baselin e 26 ng/L H ng/L (0-15) C-Reactive Protein NT-Pro-B Natriuret Pep 1035 pg/mL H pg/m L (0-125) Total Protein 6.3 g/dL L g/dL (6.6-8.7) Albumin 4.1 g/dL g/dL (3.5-5.2) Globulin 2.2 g/dL g/dL (1.3-4.6) Procalcitonin 04/18/21 12:26 WBC RBC Hgb Hct MCV MCH MCHC RDW Plt Count MPV Neut % (Auto) Lymph % (Auto) [place] % (Auto) Eos % (Auto) Baso % (Auto) Neut # (Auto) Lymph # (Auto) [place] # (Auto) Eos # (Auto) Baso # (Auto) Nucleated RBC % (a uto) Nucleated RBCs # Sodium Potassium Chloride Carbon Dioxide Anion Gap BUN Creatinine GFR Calculation Glucose Calculated Osmolal ity Calcium Total Bilirubin AST ALT Alkaline Phosphata se Troponin T Baselin e C-Reactive Protein 6.8 mg/L H mg/L (0.0-4.9) NT-Pro-B Natriuret Pep Total Protein Albumin Globulin Procalcitonin 0.08 ng/mL ng/mL (0-0.5) Discharge Plan Discharge Prescriptions: No Action spironolactone 25 mg tablet 25 mg PO DAILY Qty: 90 RF: 3 Eliquis DVT-PE Treat 30D Start 5 mg (74 tabs) tablets,dose pack See Rx Instructions .ROUTE .COMPLEX Qty: 74 RF: 0 furosemide [Lasix] 40 mg tablet 40 mg PO BID 30 Days Qty: 60 RF: 0 losartan 25 mg tablet 25 mg PO DAILY 30 Days Qty: 30 RF: 0 metoprolol succinate 25 mg tablet extended release 24 hr 25 mg PO BID RF: 0 Coding Level of Care Code ED Special Technical Operations Officer for g Fwd Exam Comprehensive
[2021-04-18 12:54] LABS: Troponin(5th) Baseline 26 ng/L (0-15)
[2021-04-18 13:03] LABS: Alanine Aminotransferase 89 U/L (0-41); Albumin Level 4.1 g/dL (3.5-5.2); Alkaline Phosphatase 52 IU/L (40-130); Blood Urea Nitrogen 22 mg/dL (6-20); Carbon Dioxide 26 mmol/L (22-29); Chloride 102 mmol/L (98-107); Creatinine Clr Calc Pharmacy 148.8418; Globulin 2.2 g/dL (1.3-4.6); Glomerular Filtration Rate 86.1 mL/min (90-130); Glucose 103 mg/dL (65-115); NT Pro B Type Natriuretic Pept 1035 pg/mL (0-125); Osmolality Calculated 292 mOsm/kg (285-295); Sodium 139 mmol/L (136-145); Total Bilirubin 0.5 mg/dL (0.15-1.2); Total Protein 6.3 g/dL (6.6-8.7)
[2021-04-18 13:06] LABS: Anion Gap 15.9 (5-19); Aspartate Amino Transferase 46 U/L (0-40); Potassium 4.9 mmol/L (3.5-5.1)
[2021-04-18] MEDS: FUROsemide 10 mg/mL SDV 4mL 40 MG IVP ×2 (13:51→14:27)
--- NOTE | 2021-04-18 13:51 | P.HP_ITS ---
Providers/Chief Complaint Chief Complaint: retaining water History of Present Illness Dmitry Linares is a 35 year old male who carries history of nonischemic cardiomyopathy, recent admission for CHF exacerbation, patient stating that he developed congestive heart failure and relatively younger age, he does have family history of congestive heart failure, his father developed CHF at age 47, his uncle required pacemaker at a younger age, he has not traveled outside [place], no previous diagnosis of Chagas disease, no genetic testing has been conducted, on previous admission Dr. Escobedo evaluated him, cardiac cath clean, no signs of coronary disease at all, no signs of Takotsubo ca rdiomyopathy, viral etiology was being considered at that time however viral panel is negative he is presenting today with chief complaint of worsening bilateral lower extremity edema. He is compliant with his medications, stating that with diuretic regimen twice a day he is not making enough urine at most he would only go to the bathroom 3-4 times a day, has not noticed any chest pain. No recent febrile episodes. The main reason he came to the emergency department was bilateral lower extremit y swelling, he has gained 2- 2.5 pounds every day for last 2 to 3 weeks, he watches his diet. Diagnosis in the ER revealed BNP around 1000, nonischemic EKG, troponin at baseline, no active chest pain, he became hypotensive after first IV attempt, then required vasopressors which were started by the ER physician, by the time law enforcement officer Dr. 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 Does not smoke or drink alcohol Review of Systems Const: Reports: change in weight; Denies: fever(s) or chills Eyes: Denies: change in vision ENMT: Denies: throat pain Card: Reports: edema, swelling of feet/ankles and dyspnea on exertion Resp: Reports: dyspnea GI: Denies: abdominal pain : Denies: flank pain Musc: Denies: neck pain Skin/Breast: Reports: changes in skin color; Denies: rash Neuro: Denies: headache(s) Psych: Denies: anxiety Endo: Denies: polyuria Portillo/Lymph: Denies: easy bruising All/Imm: Denies: urticaria Medications/Allergies Home Medications Medication Instructions Recorded Confirmed Last Taken Type apixaban [Eliquis DVT-PE Treat 30D See Rx Instructions .ROUTE 04/01/21 04/08/21 Unknown Rx Start] .COMPLEX #74 ea furosemide [Lasix] 40 mg PO BID 30 Days #60 tab 04/01/21 04/08/21 Unknown Rx losartan 25 mg PO DAILY 30 Days #30 tab 04/01/21 04/08/21 Unknown Rx spironolactone 25 mg tablet 25 mg PO DAILY #90 tab 04/14/21 Unknown Rx metoprolol succinate 25 mg PO BID 04/18/21 04/18/21 04/18/21 History Allergies Allergy/AdvReac Type Severity Reaction Status Date / Time No Known Allergies Allergy Verified 04/08/21 13:52 PFSH Acute PFSH: Medical History CHF (congestive heart failure), NYHA class III Non-ischemic cardiomyopathy Normal coronary angiogram Second hand smoke exposure Upper leg DVT (deep venous thromboembolism), acute Surgical History History of cardiac cath No pertinent past surgical history Family History Father CHF (congestive heart failure) Other CAD (coronary artery disease) Social History Smoking and tobacco status: never smoked Second hand smoke exposure: Yes Alcohol intake: current Alcohol intake frequency: holidays/special occasions only Vitals/I&O/Wt Last Vital Signs Temp 98.1 F 04/18/21 12:26 Pulse 94 04/18/21 13:34 Resp 18 04/18/21 12:26 BP 97/70 04/18/21 13:34 Pulse Ox 100 04/18/21 13:34 Weight last 48 hrs Weight 137.438 kg Physical Exam Narrative: EXAM NARRATIVE: Patient was sitting comfortably in his bed Mean arterial pressure 77 mmHg No chest pain S1, S2 Clinical signs of fluid overload Bilateral lower extremity edema 3+ Venous stasis dermatitis No signs of cellulitis Bilateral breath sounds without adventitious rhonchi or crackles Saturating well on room air EOMI, PERRLA Nonfocal neuro exam Data : 04/18/21 12:26 04/18/21 12:26 A&P Assessment and plan (1) ROCHELLE (obstructive sleep apnea): Status: Acute (2) Hypotension: Status: Acute (3) CHF exacerbation: Status: Acute (4) CHF (congestive heart failure), NYHA class III: Status: Acute Qualifiers: Congestive heart failure type: unspecified Qualified Code(s): I50.9 - Heart failure, unspecified Additional A&P Information Congestive heart failure exacerbation Acute systolic congestive heart failure exacerbation Likely due to underlying gradual worsening of nonischemic cardiomyopathy Does have history of sleep apnea Compliant with his medications No active chest pain Viral panel negative Repeat echo in the morning, no active signs of cardiogenic shock, if needed mean arterial pressure less than 65 can use Levophed or dobutamine Considering low blood pressure I would only do Bumex 1 mg IV daily Ammunition Storage Superintendent consulted by the ER physician Patient does have a LifeVest at home Check potassium and magnesium level Patient is stating that he is active for his age, denies alcohol and smoking He has been taking Lasix 40 twice daily, I will hold losartan metoprolol spironolactone I will keep him on Eliquis he was diagnosed with DVT He saturating well on room air Heart rate upper 90s Full code Cardiac diet DVT prophylaxis: Eliquis will suffice Attestations Medical Necessity Statement*: Anticipating discharge within 48 hours if clinically stays stable Time Spent in Patient Care: Greater than 35 minutes Coding Level of Care Code Acute Collar Turner Operator for Chg Fwd Diagnoses ROCHELLE (obstructive sleep apnea) G47.33 Hypotension I95.9 CHF exacerbation I50.9 CHF (congestive heart failure), NYHA class III I50.9 Congestive heart failure type: unspecified
--- NOTE | 2021-04-18 13:59 | PM.CONSULT ---
Providers/Reason For Consult Consulting Physician/Specialty*: John Cornejo MD/ Cardiology Reason for Consult*: CHF exacerbation History of Present Illness History of Present Illness Dmitry Linares is a 35 year old male with past medical history of nonischemic cardiomyopathy with recent admission for CHF exacerbation and underwent coronary angiogram done which showed no significant coronary artery disease has presented with shortness of breath and lower extremity edema. Patient has been gaining weight and is up 14 pounds since his recent discharge from hospital. He is on room air. Initially his blood pressure went down after needlestick in the ER, likely vasovagal. No signs of cardiogenic shock are seen. He is not able to lay down in the bed flat. Review of Systems Const: Reports: change in weight; Denies: fever(s) or chills Eyes: Denies: change in vision ENMT: Denies: throat pain Card: Reports: edema, swelling of feet/ankles and dyspnea on exertion Resp: Reports: dyspnea GI: Denies: abdominal pain : Denies: flank pain Musc: Denies: neck pain Skin/Breast: Reports: changes in skin color; Denies: rash Neuro: Denies: headache(s) Psych: Denies: anxiety Endo: Denies: polyuria Portillo/Lymph: Denies: easy bruising All/Imm: Denies: urticaria Meds/Allergies Home Medications and Allergies Home Medications Medication Instructions Recorded Confirmed Last Taken Type apixaban [Eliquis DVT-PE Treat 30D See Rx Instructions .ROUTE 04/01/21 04/18/21 04/18/21 Rx Start] .COMPLEX #74 ea furosemide [Lasix] 40 mg PO BID 30 Days #60 tab 04/01/21 04/18/21 04/18/21 Rx losartan 25 mg PO DAILY 30 Days #30 tab 04/01/21 04/18/21 04/18/21 Rx spironolactone 25 mg tablet 25 mg PO DAILY #90 tab 04/14/21 04/18/21 04/18/21 Rx metoprolol succinate 25 mg PO BID 04/18/21 04/18/21 04/18/21 History Allergies Allergy/AdvReac Type Severity Reaction Status Date / Time No Known Allergies Allergy Verified 04/08/21 13:52 Current Medications Current Medications Generic Name Dose Route Start Last Admin Trade Name Freq PRN Reason Stop Dose Admin Norepinephrine Bitartrate 4 mg 254 mls @ 0 mls/hr 04/18/21 12:45 04/18/21 13:30 / Dextrose IV 0.66 mcg/min .Q0M STEPHAN 2.5 mls/hr Administration Protocol Per Protocol PFSH Acute PFSH: Medical History CHF (congestive heart failure), NYHA class III Non-ischemic cardiomyopathy Normal coronary angiogram Second hand smoke exposure Upper leg DVT (deep venous thromboembolism), acute Surgical History History of cardiac cath No pertinent past surgical history Family History Father CHF (congestive heart failure) Other CAD (coronary artery disease) Social History Smoking and tobacco status: never smoked Second hand smoke exposure: Yes Alcohol intake: current Alcohol intake frequency: holidays/special occasions only Vitals/I&O/Wt Last Vital Signs Temp 98.1 F 04/18/21 12:26 Pulse 94 04/18/21 13:34 Resp 18 04/18/21 12:26 BP 97/70 04/18/21 13:34 Pulse Ox 100 04/18/21 13:34 Weight last 48 hrs Weight 303 lb Physical Exam Narrative: EXAM NARRATIVE: GENERAL: obese man in no acute distress HEENT: Pupils equal round reactive to light. No pallor or icterus. NECK:Elevated JVD, No carotid bruit. Short thick neck CARDIOVASCULAR SYSTEM: S1-S2 regular. systolic murmur + RESPIRATORY SYSTEM: Chest clear to auscultation. No wheezes rhonchi or rubs heard. No use of accessory muscles. ABDOMEN: Soft, nontender and nondistended. Normal bowel sounds present. EXTREMITIES: No cyanosis or clubbing. 1+ bilateral edema. No signs of chronic venous insufficiency. R wrist TR band inplace SUPERINTENDENT COMMISSARY: Patient is alert oriented ?3. No focal neurological deficits. SKIN: Normal turgor and temperature. PSYCH: Normal insight and judgment. A&P Assessment and plan (1) CHF exacerbation: Status: Acute (2) ROCHELLE (obstructive sleep apnea): Status: Acute (3) Cardiomyopathy: Status: Acute Patient presented with CHF exacerbation. He is not in cardiogenic shock. His blood pressure has improved which had dropped likely secondary to vasovagal reaction after needlestick. Can stop Levophed at this time. IV diuretics. Strict I&O's. Telemetry monitoring. Monitor BMP. Thank you for involving us with care of this patient. We will continue to follow. Please call with questions. Coding Level of Care Code Acute Disability Representative for Baljinder Reyna Diagnoses CHF exacerbation I50.9 ROCHELLE (obstructive sleep apnea) G47.33 Cardiomyopathy I42.9
--- NOTE | 2021-04-18 14:06 | ECG_ITS ---
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: : 1985 Requested By: Richard Villa Order Number: [id number] Luciano MD: ERMA BETH Measurements Intervals [place] Rate: 96 P: 59 [place]: 155 QRS: -12 QRSD: 98 T: 136 QT: 372 QTc: 472 Interpretive Statements SINUS RHYTHM POSSIBLE LEFT ATRIAL ENLARGEMENT [-0.1mV P-WAVE IN V1/V2] POSSIBLE RIGHT VENTRICULAR CONDUCTION DELAY [RSR (QR) IN V1/V2] LEFT VENTRICULAR HYPERTROPHY AND ST-T CHANGE [VOLTAGE CRITERIA PLUS ST/T ABNORMALITY] Compared to ECG 04/18/2021 12:33:44 No significant changes Electronically Signed On 04-19-2021 0:02:51 CDT by ERMA BETH [id number]
[2021-04-18 14:37] LABS: C Reactive Protein 6.8 mg/L (0.0-4.9)
[2021-04-18 14:44] LABS: Procalcitonin 0.08 ng/mL (0-0.5)
[2021-04-18 15:00] LABS: Troponin 5 2HR 25.12 ng/L (0-15)
[2021-04-18 15:04] LABS: Troponin 5 2HR Delta -0.88 ABS# (0-10)
[2021-04-18 15:08] LABS: D Dimer 0.54 ug/mIFEU (0-0.59)
[2021-04-18] MEDS: midodrine 5 mg TABLET 10 MG PO (17:51)
[2021-04-18] MEDS: hydrocortisone 100 mg/2 mL SDV IVP (17:52)
--- NOTE | 2021-04-18 18:06 | ECG_ITS ---
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: : 1985 Requested By: Richard Villa Order Number: [id number] Luciano MD: ERMA BETH Measurements Intervals [place] Rate: 101 P: 49 [place]: 124 QRS: -17 QRSD: 101 T: 123 QT: 358 QTc: 464 Interpretive Statements SINUS TACHYCARDIA POSSIBLE LEFT ATRIAL ENLARGEMENT [-0.1mV P WAVE IN V1/V2] POSSIBLE RIGHT VENTRICULAR CONDUCTION DELAY [RSR (QR) IN V1/V2] LEFT VENTRICULAR HYPERTROPHY AND ST-T CHANGE [VOLTAGE CRITERIA PLUS ST/T ABNORMALITY] Compared to ECG 04/18/2021 14:39:23 Sinus rhythm no longer present ST (T wave) deviation still present Electronically Signed On 04-19-2021 0:02:10 CDT by ERMA BETH [id number]
[2021-04-18 18:14] LABS: Thyroid Stimulating Hormone 1.59 uIU/mL (0.27-4.20)
[2021-04-18 19:08] LABS: Troponin 5 6HR 19.24 ng/L (0-15)
[2021-04-18 19:11] LABS: Troponin 5 6HR Delta -6.76 ng/L (0-12)
[2021-04-18 20:09] LABS: Cortisol Random 20.81 ug/dL (2.47-19.5)
[2021-04-18] MEDS: apixaban 5 mg Tablet PO (20:29)
[2021-04-19] VITALS (31 sets, daily range): BP systolic 100–136; BP diastolic 67–95; PULSE 94–113; RESP 17–27; TEMP 36.5–37.2; O2SAT 98–100
--- NOTE | 2021-04-19 05:44 | PC.NURSE ---
Shift Note Frequent safety and comfort rounds continue. Orders and/or nursing care completed as indicated. Patient monitored for response to intervention and treatment(s). Education provided includes bumex. Patient and spouse both verbalized complete understanding. Patient VS WNL this night. 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 Edema improved. Denies pain or needs. No distress observed. Will continue to monitor.
[2021-04-19 06:21] LABS: Basophils # 0.2 10^3/uL (0.0-0.1); Basophils % 1.2 %; Eosinophils # 0.2 10^3/uL (0.0-0.8); Eosinophils % 1.2 %; Hematocrit 46.8 % (42.0-52.0); Hemoglobin 14.6 g/dL (11.7-16.6); Lymphocytes # 2.6 10^3/uL (0.8-4.8); Lymphocytes % 19.3 %; Mean Corpuscular HGB Conc 31.2 g/dL (30.0-36.0); Mean Corpuscular Hemoglobin 26.4 pg (28.0-34.0); Mean Corpuscular Volume 84.6 fl (80-94); Monocytes # 1.1 10^3/uL (0.2-0.9); Monocytes % 8.1 %; Neutrophils # 9.39 10^3/uL (1.8-7.7); Neutrophils % 69.4 %; Nucleated Red Blood Cells % 0 %; Platelet Count 255 10^3/cmm (130-400); Red Blood Count 5.53 10^6/uL (4.1-5.3); Red Cell Distribution Width 13.9 % (12.1-15.1); White Blood Count 13.5 10^3/uL (4.0-10.0)
[2021-04-19 06:38] LABS: Alanine Aminotransferase 87 U/L (0-41); Albumin Level 3.7 g/dL (3.5-5.2); Alkaline Phosphatase 51 IU/L (40-130); Aspartate Amino Transferase 37 U/L (0-40); Blood Urea Nitrogen 27 mg/dL (6-20); Calcium 8.8 mg/dL (8.5-10.5); Carbon Dioxide 22 mmol/L (22-29); Chloride 101 mmol/L (98-107); Globulin 2.4 g/dL (1.3-4.6); Glomerular Filtration Rate 97.2 mL/min (90-130); Glucose 102 mg/dL (65-115); Osmolality Calculated 285 mOsm/kg (285-295); Sodium 135 mmol/L (136-145); Total Bilirubin 0.4 mg/dL (0.15-1.2); Total Protein 6.1 g/dL (6.6-8.7)
[2021-04-19] MEDS: apixaban 5 mg Tablet PO ×2 (07:49→23:12)
[2021-04-19] MEDS: bumetanide 0.25 mg/mL SDV 4 mL 1 MG IVP ×2 (07:51→18:30)
[2021-04-19] MEDS: losartan 50 mg Tablet 25 MG PO (09:46)
[2021-04-19] MEDS: metoprolol succinate ER (24 HR) 25 mg Tablet PO (09:46)
[2021-04-19] MEDS: spironolactone 25 mg Tablet PO (09:46)
--- NOTE | 2021-04-19 11:44 | P.PN_ITS ---
Subjective Subjective: Interval history: Patient is feeling much better. Had good urine output. On room air. Vitals/I&O/Wt Last Vital Signs Temp 98.3 F 04/19/21 07:48 Pulse 111 H 04/19/21 08:07 Resp 20 H 04/19/21 08:07 BP 114/81 04/19/21 07:48 Pulse Ox 98 04/19/21 08:07 04/18/21 04/19/21 04/19/21 22:59 06:59 14:59 Intake Total 209.583 / 209.583 360 / 360 Output Total 200 / 200 600 / 800 Balance 9.583 / 9.583 -600 / -590.417 360 / 360 Weight last 48 hrs Weight 303 lb Physical Exam Narrative: EXAM NARRATIVE: GENERAL: Patient is alert, awake and oriented x3. [] NECK: No jugular vein distension. [] HEENT: No cyanosis. No icterus. No pallor. [] HEART: Regular S1 and S2. No murmur, rub or gallop. [] LUNGS: Clear to auscultate bilaterally. [] ABDOMEN: Soft, nontender and nondistended. Positive bowel sounds. No guarding, rebound or tenderness. [] CENTRAL NERVOUS SYSTEM: Grossly nonfocal. [] EXTREMITIES: Lower extremities with 1+ edema bilaterally. Pulses palpable in the lower extremities, both dorsalis pedis and posterior tibial. [] Data : 04/19/21 06:08 04/19/21 06:08 A&P Assessment and plan (1) CHF exacerbation: Status: Acute (2) ROCHELLE (obstructive sleep apnea): Status: Acute (3) Cardiomyopathy: Status: Acute Is diuresing well. Continue IV diuretics at this time. Monitor BMP. Telemetry monitoring Thank you for involving us with care of this patient. We will continue to follow. Please call with questions. Attestations Medical Necessity Statement*: Care expected to cross 2 midnights. Coding Level of Care Code Acute Ip Litigation Associate for Chg Fwd Diagnoses CHF exacerbation I50.9 ROCHELLE (obstructive sleep apnea) G47.33 Cardiomyopathy I42.9
--- NOTE | 2021-04-19 12:33 | PM.PN ---
Subjective Subjective: Interval history: Patient was seen and examined this morning, about 800 urine output, he will get Bumex 2 mg IV 12 hours, like to monitor urine output with IV diuresis for 1 more day, requested limited echo today for ejection fraction evaluation Patient is asymptomatic, patient is asymptomatic, systolic blood pressure has improved This morning he was tachycardic, resumed his home medication of metoprolol succinate Vitals/I&O/Wt Last Vital Signs Temp 98.3 F 04/19/21 07:48 Pulse 111 H 04/19/21 08:07 Resp 20 H 04/19/21 08:07 BP 114/81 04/19/21 07:48 Pulse Ox 98 04/19/21 08:07 04/18/21 04/19/21 04/19/21 22:59 06:59 14:59 Intake Total 209.583 / 209.583 360 / 360 Output Total 200 / 200 600 / 800 Balance 9.583 / 9.583 -600 / -590.417 360 / 360 Weight last 48 hrs Weight 137.438 kg Physical Exam Narrative: EXAM NARRATIVE: Patient was sitting in his chair Saturating well on room air S1, S2 Clinical sign of fluid overload Lower extremity edema Venous stasis dermatitis No sign of cellulitis Nonfocal neuro exam Awake alert oriented x3 GCS 15 Data : 04/19/21 06:08 04/19/21 06:08 A&P Assessment and plan (1) Hypotension: Status: Acute (2) CHF exacerbation: Status: Acute (3) ROCHELLE (obstructive sleep apnea): Status: Acute (4) Cardiomyopathy: Status: Acute (5) CHF (congestive heart failure), NYHA class III: Status: Acute Qualifiers: Congestive heart failure type: unspecified Qualified Code(s): I50.9 - Heart failure, unspecified Additional A&P Information acute Systolic congestive heart failure exacerbation likely gradually declining underlying cardiomyopathy We will follow up with limited echo for evaluation of ejection fraction Patient does follow sodium restricted diet, continue cardiac diet Fluid restriction He has gained 8 to 10 pounds in last 2 weeks IV diuresis Bumex 1 milligram from Brilinta DVT 40 mg IV every 12 Full code DVT prophylaxis patient takes Eliquis Attestations Medical Necessity Statement*: Anticipating discharge tomorrow Time Spent in Patient Care: less than 15 minutes Coding Level of Care Code Acute Cafeteria Supervisor for Chg Fwd Diagnoses Hypotension I95.9 CHF exacerbation I50.9 ROCHELLE (obstructive sleep apnea) G47.33 Cardiomyopathy I42.9 CHF (congestive heart failure), NYHA class III I50.9 Congestive heart failure type: unspecified
--- NOTE | 2021-04-19 16:40 | USCV_ITS ---
Dmitry Linares Age: 35 Gender: M : 1985 Exam Date: 04/19/2021 09:48 Ordering Phys: Andree Steinberg MD Technologist: Kami Escobedo [place] [facility] [place] chf BP: 133 / 95 HR: 101 Rhythm: Sinus Tachycardia Technical Quality: Adequate MEASUREMENTS (Male / Female) Normal Values 2D ECHO LV Diastolic Diameter PLAX 5.9 cm 4.2 - 5.9 / 3.9 - 5.3 cm LV Systolic Diameter PLAX 5.7 cm IVS Diastolic Thickness 1.6 cm 0.6 - 1.0 / 0.6 - 0.9 cm IVS Systolic Thickness 1.7 cm LVPW Diastolic Thickness 1.6 cm 0.6 - 1.0 / 0.6 - 0.9 cm LVPW Systolic Thickness 1.6 cm LV Ejection Fraction 2D Teich 9.1 % LV Ejection Fraction MOD 2C 23.8 % LV Ejection Fraction 2C AL 23.2 % M-MODE LV Diastolic Diameter MM 7.0 cm 4.2 - 5.9 / 3.9 - 5.3 cm LV Systolic Diameter MM 6.4 cm LV Ejection Fraction MM Teich 18.8 % IVS Diastolic Thickness MM 1.8 cm 0.6 - 1.0 / 0.6 - 0.9 cm IVS Systolic Thickness MM 1.6 cm LVPW Diastolic Thickness MM 1.5 cm 0.6 - 1.0 / 0.6 - 0.9 cm LVPW Systolic Thickness MM 1.5 cm FINDINGS Left Ventricle Right Ventricle Right Atrium Left Atrium Mitral Valve Aortic Valve Tricuspid Valve Pulmonic Valve Pericardium Aorta CONCLUSIONS This is a limited echocardiogram performed to assess LV systolic function. LV is moderately dilated. LV systolic function is severely reduced with EF of 10 to 15%. Severe global hypokinesis is seen. Compared to prior echocardiogram from 03/30/2021, no significant changes are seen. John Cornejo MD (Electronically Signed) Final Date: 19 April 2021 19:48 S
--- NOTE | 2021-04-19 19:42 | PC.NURSE ---
Shift Note Frequent safety and comfort rounds continue. Orders and/or nursing care completed as indicated. Patient monitored for response to intervention and treatment(s). Education provided includes strict intake and output. Patient and/or roofing sales representative verbalizes understanding. Will continue to monitor.
[2021-04-20] VITALS (36 sets, daily range): BP systolic 95–139; BP diastolic 63–72; PULSE 85–104; RESP 18–20; TEMP 36.4–37.1; O2SAT 98
[2021-04-20 05:32] LABS: Anion Gap 14.5 (5-19); Blood Urea Nitrogen 26 mg/dL (6-20); Calcium 8.5 mg/dL (8.5-10.5); Carbon Dioxide 24 mmol/L (22-29); Chloride 103 mmol/L (98-107); Glomerular Filtration Rate 97.2 mL/min (90-130); Glucose 92 mg/dL (65-115); Osmolality Calculated 290 mOsm/kg (285-295); Potassium 3.5 mmol/L (3.5-5.1); Sodium 138 mmol/L (136-145)
--- NOTE | 2021-04-20 08:27 | P.PN_ITS ---
Subjective Subjective: Interval history: Patient is doing well. Denies any complaints of chest pain, shortness of breath or palpitations. Has been diuresing well. Vitals/I&O/Wt Last Vital Signs Temp 98.2 F 04/20/21 04:30 Pulse 103 H 04/20/21 08:10 Resp 18 04/20/21 08:10 BP 95/63 04/20/21 07:30 Pulse Ox 98 04/20/21 08:10 04/19/21 04/20/21 04/20/21 23:59 06:59 14:59 Intake Total Output Total Balance Weight last 48 hrs Weight 303 lb Physical Exam Narrative: EXAM NARRATIVE: GENERAL: Patient is alert, awake and oriented x3. [] NECK: No jugular vein distension. [] HEENT: No cyanosis. No icterus. No pallor. [] HEART: Regular S1 and S2. No murmur, rub or gallop. [] LUNGS: Clear to auscultate bilaterally. [] ABDOMEN: Soft, nontender and nondistended. Positive bowel sounds. No guarding, rebound or tenderness. [] CENTRAL NERVOUS SYSTEM: Grossly nonfocal. [] EXTREMITIES: Lower extremities with 1+ edema bilaterally. Pulses palpable in the lower extremities, both dorsalis pedis and posterior tibial. [] Data : 04/19/21 06:08 04/20/21 04:16 A&P Assessment and plan (1) CHF exacerbation: Status: Acute (2) ROCHELLE (obstructive sleep apnea): Status: Acute (3) Cardiomyopathy: Status: Acute Patient has done well. He has responded well to IV diuresis. Can switch to p.o. diuretics today. Had a detailed discussion with patient regarding checking daily weights and to take extra diuretic dose on any day gains more than 2 pounds of weight. Low-sodium diet advised. Thank you for involving us with the care of this patient. He is stable to be discharged from cardiology standpoint. Please call with questions. Attestations Medical Necessity Statement*: Care expected to cross 2 midnights. Coding Level of Care Code Acute Freezer Assistant for Niralig Fwd Diagnoses CHF exacerbation I50.9 ROCHELLE (obstructive sleep apnea) G47.33 Cardiomyopathy I42.9
[2021-04-20] MEDS: metoprolol succinate ER (24 HR) 25 mg Tablet PO (08:57)
[2021-04-20] MEDS: bumetanide 0.25 mg/mL SDV 4 mL 1 MG IVP (08:57)
[2021-04-20] MEDS: spironolactone 25 mg Tablet PO (08:57)
[2021-04-20] MEDS: apixaban 5 mg Tablet PO (10:11)
[2021-04-20] MEDS: losartan 50 mg Tablet 25 MG PO (10:11)
--- NOTE | 2021-04-20 10:34 | PM.DCS ---
Discharge Providers Date of Admission: 04/18/21 16:48 Date of Discharge: April 20, 2021 Attending Provider at Admission: Andree Steinberg MD Attending Provider at Discharge: Andree Steinberg MD Diagnoses at Discharge Discharge Diagnosis (1) CHF exacerbation: Status: Acute (2) ROCHELLE (obstructive sleep apnea): Status: Acute (3) Cardiomyopathy: Status: Acute Reason for Visit Reason for Visit: retaining water Hospital Course Hospital Course 35y/o male with history of nonischemic cardiomyopathy, EF 15 to 20% as per previous echo, presented to the hospital with worsening shortness of breath and weight gain. Patient is stating that he was gaining 2 to 2.5 pounds every day for last 1 week, at home he takes Lasix 40 mg twice a day, he has been noticing low blood pressure as well. No chest pain shortness of breath, fever, diarrhea or myalgias. He was admitted for IV diuresis, repeat echo showed EF 10 to 15%. Patient blood pressure improved after holding his metoprolol and losartan. Cardiology was consulted, Dr. Cornejo evaluated him and recommended Bumex 1 mg twice daily and outpatient follow-up. Patient does have a LifeVest at home. He does not smoke or drink alcohol. He was instructed to use low-sodium diet. Follow-up with cardiology. Bumex prescription was sent to [facility] pharmacy. [facility] pharmacy is closed on Wednesday. TSH normal, potassium and magnesium within normal range, at the time of discharge blood pressure 139/71 mmHg. Heart rate 98. During his hospitalization EKG did not show any ischemic or infarct changes troponin not significantly elevated. Physical Exam Narrative: EXAM NARRATIVE: Obese male S1, S2 Lower 70 edema 2+ Venous his dermatitis S1, S2 Abdomen soft nontender distended EOMI, nonfocal neuro exam, PERRLA Discharge Data Data Completed and Pending: Completed Studies During Hospitalization Category Date Time Status XR chest 1V iraida ble [id number] Stat Exams 04/18/21 12:06 Completed CV. echo limited [id number] Routine Ultrasound 04/19/21 16:40 Completed Labs from last 24 hours 04/20/21 04:16 Sodium 138 Potassium 3.5 Chloride 103 Carbon Dioxide 24 Anion Gap 14.5 BUN 26 H Creatinine 0.9 GFR Calculation 97.2 Glucose 92 Calculated Osmolal ity 290 Calcium 8.5 Vitals: Last Vital Signs Temp 98.2 F 04/20/21 04:30 Pulse 103 H 04/20/21 08:10 Resp 18 04/20/21 08:10 BP 95/63 04/20/21 07:30 Pulse Ox 98 04/20/21 08:10 Discharge Plan Discharge Patient Disposition: Home Condition: Stable Prescriptions: New bumetanide 1 mg tablet 1 mg PO BID Qty: 60 RF: 3 bumetanide 1 mg tablet 1 mg PO BID Qty: 60 RF: 0 Continued spironolactone 25 mg tablet 25 mg PO DAILY Qty: 90 RF: 3 Eliquis DVT-PE Treat 30D Start 5 mg (74 tabs) tablets,dose pack See Rx Instructions .ROUTE .COMPLEX Qty: 74 RF: 0 losartan 25 mg tablet 25 mg PO DAILY 30 Days Qty: 30 RF: 0 metoprolol succinate 25 mg tablet extended release 24 hr 25 mg PO BID RF: 0 Discontinued furosemide [Lasix] 40 mg tablet 40 mg PO BID 30 Days Qty: 60 RF: 0 Discharge Orders: Discharge Order (Routine); Ordered 04/20/21 Ordered By: Andree Steinberg Referrals: Tevin Fallon DO [Physician] - 4-7 days ([facility] will be calling to schedule a hospital followup with Dr. Fallon to be seen in 4 to 7 days. If you don't hear from them by Wednesday, please give them a call. Thank you) Brenda Urbina FNP [Nurse Practitioner] - 1-3 days ([facility] will be calling to schedule a Cardiology followup with ANNA Sanchez to be seen in 4 to 7 days. If you don't hear from them by Wednesday afternoon, please give them a call. Thank you) Discharge Diet: Cardiac Discharge Activity: Increase activity as tolerated Patient Instructions: Bumetanide (By mouth) (Bumex), Heart Healthy Diet (DC), Low-Sodium Diet (DC), CHF Stoplight Activity Restrictions/Additional Instructions: Dr. Cornejo discussed to you to check daily weights and to take extra diuretic dose on any day gains more than 2 pounds of weight. Low-sodium diet advised. Keep a log of your Heart rate and Blood pressures twice a day. Bring it to your next appointments with your pcp and professor of mathematics. Discharge Attestations Time Spent in Discharge Care*: less than 30 min Quality Metrics Clinical Quality Measures During this hospital stay, did patient experience: None Coding Level of Care Code Acute [facility] note Diagnoses CHF exacerbation I50.9 ROCHELLE (obstructive sleep apnea) G47.33 Cardiomyopathy I42.9
--- NOTE | 2021-04-20 13:45 | PC.NURSE ---
Discharge to home Instructed pt on his ff-up appointments. Educated pt on chf stoplight, low salt diet. to monitor his weights everyday and his HR and BP twice a day so he can keep a log and bring it to his doctors. Provided pt w/ malik care note. Discharge provided to pt.
== END 2021-04-20 13:00 | disposition home or self-care (01) ==
LOC: ER 12:51 → CSU 17:19
PROVIDERS: Physician Assistant; Admitting Provider Internal Medicine; Emergency Provider Emergency Medicine; Visit Provider Internal Medicine
DX: I50.9 Heart failure, unspecified (principal); I95.9 Hypotension, unspecified; I42.9 Cardiomyopathy, unspecified; G47.33 Obstructive sleep apnea (adult) (pediatric); E66.9 Obesity, unspecified; Z68.41 Body mass index [BMI] 40.0-44.9, adult; Z79.01 Long term (current) use of anticoagulants; Z86.718 Personal history of other venous thrombosis and embolism; Z82.49 Family history of ischemic heart disease and other diseases of the circulatory system
CPT/HCPCS: 71045; 80048; 80053; 82533; 83735; 83880; 84145; 84443; 84484; 85025; 85378; 86140; 93005; 93308; 94660; 96365; 96375; 96376; 99285; G0378; J1720; J1940; J3490

== ENCOUNTER → 2021-04-23 09:49 | Outpatient (BNVA) | payer OTHER, SELFPAY | PROVIDERS: PCP Family Medicine; Referring Provider Internal Medicine Cardiovascular Disease; Visit Provider Internal Medicine Cardiovascular Disease | DX: I42.9 Cardiomyopathy, unspecified (principal); I50.9 Heart failure, unspecified | CPT/HCPCS: 80048; 83735; 83880 ==

== ENCOUNTER 2021-04-24 20:00 | Outpatient (CLI) | payer OTHER, SELFPAY | END 2021-04-24 20:01 | disposition home or self-care (01) | LOC: SLEEP 04-25 08:21 | PROVIDERS: PCP Family Medicine; Visit Provider Family Medicine | DX: I50.9 Heart failure, unspecified (principal); R06.03 Acute respiratory distress; R06.83 Snoring; G47.33 Obstructive sleep apnea (adult) (pediatric) | CPT/HCPCS: 95810 ==

== ENCOUNTER → 2021-05-07 10:25 | Outpatient (BNVA) | payer OTHER, SELFPAY | PROVIDERS: PCP Family Medicine; Visit Provider Internal Medicine Cardiovascular Disease | DX: I50.9 Heart failure, unspecified (principal); I42.8 Other cardiomyopathies | CPT/HCPCS: 80048; 83735; 83880 ==

== ENCOUNTER → 2021-05-29 10:47 | Outpatient (BNVA) | payer OTHER, SELFPAY | PROVIDERS: PCP Family Medicine; Visit Provider Internal Medicine Cardiovascular Disease | DX: I50.9 Heart failure, unspecified (principal); I42.8 Other cardiomyopathies; I50.23 Acute on chronic systolic (congestive) heart failure | CPT/HCPCS: 80048; 83735; 83880 ==

== ENCOUNTER 2022-08-19 16:57 | Emergency (ER) | payer OTHER, SELFPAY ==
[2022-08-19 17:36] VITALS: BP 119/60; PULSE 100; RESP 19; TEMP 36.6; O2SAT 97; BMI 41.8
--- NOTE | 2022-08-19 17:48 | ECG_ITS ---
[facility] Test Date: 2022-08-19 Pat Name: Dmitry Linares Department: Room: Gender: Male Sampling Expert: : 1985 Requested By: Anup Vann Order Number: [id number] Luciano MD: Linnette De La Cruz M.D. Measurements Intervals [place] Rate: 101 P: 61 [place]: 149 QRS: -9 QRSD: 102 T: 108 QT: 371 QTc: 481 Interpretive Statements SINUS TACHYCARDIA POSSIBLE LEFT ATRIAL ENLARGEMENT [-0.1mV P-WAVE IN V1/V2] POSSIBLE RIGHT VENTRICULAR CONDUCTION DELAY [RSR (QR) IN V1/V2] POSSIBLE LEFT VENTRICULAR HYPERTROPHY [VOLTAGE CRITERIA PLUS LAE OR QRS WIDENING] MODERATE T-WAVE ABNORMALITY, CONSIDER LATERAL ISCHEMIA [-0.1+ mV T-WAVE IN I/aVL/V5/V6] Compared to ECG 04/18/2021 18:17:26 T-wave abnormality now present Possible ischemia now present ST (T wave) deviation no longer present Electronically Signed On 08-20-2022 23:24:14 AUTO PARTS DELIVERY DRIVER by Linnette De La Cruz M.D. [id number]
--- NOTE | 2022-08-19 19:47 | XRR_ITS ---
PROCEDURE INFORMATION: Exam: XR Chest Exam date and time: 08/19/2022 7:58 PM Age: 37 years old Clinical indication: Shortness of breath; Additional info: Dyspnea TECHNIQUE: Imaging protocol: Radiologic exam of the chest. Views: 1 view. COMPARISON: CR XR chest 1V portable [id number] 04/18/2021 12:21 PM FINDINGS: Lungs: No consolidation. Pleural spaces: No pleural effusion. No pneumothorax. Heart/Mediastinum: Similar cardiomegaly. Bones/joints: Visualized osseous structures are intact. XR/XR chest 1V portable [id number] IMPRESSION: Similar cardiomegaly. No acute findings.
[2022-08-19 20:03] VITALS: BP 128/85; PULSE 93; RESP 19; O2SAT 97
[2022-08-19 20:05] LABS: Basophils # 0.1 10^3/uL (0.0-0.1); Basophils % 1.1 %; Eosinophils # 0.2 10^3/uL (0.0-0.8); Eosinophils % 1.6 %; Hematocrit 45.2 % (42.0-52.0); Hemoglobin 14.3 g/dL (11.7-16.6); Lymphocytes # 2.3 10^3/uL (0.8-4.8); Lymphocytes % 19.2 %; Mean Corpuscular HGB Conc 31.6 g/dL (30.0-36.0); Mean Corpuscular Hemoglobin 25.2 pg (28.0-34.0); Mean Corpuscular Volume 79.6 fl (80-94); Mean Platelet Volume 9.9 fL (7.4-10.4); Monocytes # 0.9 10^3/uL (0.2-0.9); Monocytes % 7.5 %; Neutrophils # 8.32 10^3/uL (1.8-7.7); Nucleated Red Blood Cells % 0 %; Platelet Count 365 10^3/cmm (130-400); Red Blood Count 5.68 10^6/uL (4.1-5.3); Red Cell Distribution Width 14.2 % (12.1-15.1); White Blood Count 11.9 10^3/uL (4.0-10.0)
[2022-08-19 20:25] LABS: Troponin(5th) Baseline 44 ng/L (0-15)
--- NOTE | 2022-08-19 20:31 | ED_ITS ---
HPI - Chest Pain General: Chief Complaint: Chest Pain Stated Complaint: Sob\Slight Chest Pain\Upper GI Pressure Time Seen by Provider: 08/19/22 19:47 Source: patient Mode of arrival: ambulatory Limitations: no limitations History of Present Illness: 37-year-old male has a history of congestive heart failure he states that over the last 2 weeks he has been having a cough he is also developed some chest pain its been sharp in nature with some dyspnea. Denies any fever denies any worsening proving factors he states the pain is currently 3 out of 10 and it is worse with his cough. His cough is nonpr oductive. Associated symptoms: Deny abdominal pain, fever(s), nausea or vomiting Review of Systems Const: Denies: fever(s), chills, body aches or change in appetite Eyes: Denies: blurry vision or eye discomfort ENMT: Denies: throat pain or dental pain Card: Reports: chest pain Resp: Reports: non-productive cough GI: Denies: abdominal pain, nausea, vomiting or diarrhea : Denies: dysuria Musc: Denies: neck pain or back pain Skin/Breast: Denies: rash Neuro: Denies: headache(s) Psych: Denies: depression Portillo/Lymph: Denies: easy bruising All/Imm: Denies: urticaria PFSH ED PFSH: Medical History Cardiomyopathy CHF (congestive heart failure), NYHA class III CHF exacerbation Non-ischemic cardiomyopathy Normal coronary angiogram Obesity ROCHELLE (obstructive sleep apnea) Second hand smoke exposure Upper leg DVT (deep venous thromboembolism), acute Surgical History History of cardiac cath No pertinent past surgical history Family History Father CHF (congestive heart failure) Other CAD (coronary artery disease) Social History Second hand smoke exposure: Yes Alcohol intake: former Physical Exam Const: COMMON NORMALS: no acute distress, patient oriented x3 and healthy appearing HENMT: COMMON NORMALS: normocephalic and atraumatic HEAD & SCALP: normocephalic and atraumatic Eye: COMMON NORMALS: Equal, round and reactive pupils present and EOMs intact bilaterally PUPIL: Yes Equal, round and reactive pupils present Neck/C-Spine: COMMON NORMALS: full ROM and supple Chest: COMMONS NORMALS: normal inspection of the chest and normal palpation of entire chest wall Resp: COMMON NORMALS: normal respiratory effort, No retractions, No use of accessory muscles and clear to auscultation bilaterally AUSCULTATION: clear to auscultation bilaterally Cardio: COMMON NORMALS: regular rate, regular rhythm and No murmurs present (Cardio) RATE: regular rate RHYTHM: regular rhythm GI: COMMON NORMALS: Normal to inspection, nondistended, normoactive bowel sounds present, Soft to palpation, non-tender and no masses PALPATION: Yes Soft to palpation Extremity: COMMON NORMALS: normal to inspection and full ROM Neuro: COMMON NORMALS: patient oriented x3, moves all extremities and no focal motor deficits Psych: COMMON NORMALS: mental status grossly normal, Normal thought process present and cooperative THOUGHT PROCESS: Normal thought process present Skin: COMMON NORMALS: no rashes or lesions noted and no wounds GENERAL SKIN EXAM: no rashes or lesions noted Course Vital Signs: Vital signs: Vital Signs Temperature 97.8 F 08/19/22 17:36 Pulse Rate 93 08/19/22 20:03 Respiratory Rate 19 H 08/19/22 20:03 Blood Pressure 128/85 08/19/22 20:03 Pulse Oximetry 97 08/19/22 20:03 Oxygen Delivery Me thod 08/19/22 20:03 MDM - Chest Pain Medical Decision Making Patient presents here with chest pains atypical in nature his initial and repeat troponin are normal CT does show slight pneumonia he has been well-appearing he re in no distress he is stable for discharge she is to follow-up with PCP and return if worsening he understands agrees to plan. Lab Data 08/19/22 19:56 08/19/22 19:56 Radiology Impressions Chest X-Ray 08/19/22 19:47 IMPRESSION: Similar cardiomegaly. No acute findings. Chest CTA 08/19/22 21:04 IMPRESSION: 1. Negative for pulmonary embolism. 2. There are a couple focal rounded opacities noted in the right middle lobe suspicious for pneumonia. 3. Multiple large mediastinal lymph nodes which are most likely reactive to the above process. Laboratory Results WBC 11.9 10^3/uL (4.0-10.0) H 08/19/22 19:56 RBC 5.68 10^6/uL (4.1-5.3) H 08/19/22 19:56 Hgb 14.3 g/dL (11.7-16.6) 08/19/22 19:56 Hct 45.2 % (42.0-52.0) 08/19/22 19:56 MCV 79.6 fl (80-94) L 08/19/22 19:56 MCH 25.2 pg (28.0-34.0) L 08/19/22 19:56 MCHC 31.6 g/dL (30.0-36.0) 08/19/22 19:56 RDW 14.2 % (12.1-15.1) 08/19/22 19:56 Plt Count 365 10^3/cmm (130-400) 08/19/22 19:56 MPV 9.9 fL (7.4-10.4) 08/19/22 19:56 Neut % (Auto) 70.0 % 08/19/22 19:56 Lymph % (Auto) 19.2 % 08/19/22 19:56 [place] % (Auto) 7.5 % 08/19/22 19:56 Eos % (Auto) 1.6 % 08/19/22 19:56 Baso % (Auto) 1.1 % 08/19/22 19:56 Neut # (Auto) 8.32 10^3/uL (1.8-7.7) H 08/19/22 19:56 Lymph # (Auto) 2.3 10^3/uL (0.8-4.8) 08/19/22 19:56 [place] # (Auto) 0.9 10^3/uL (0.2-0.9) 08/19/22 19:56 Eos # (Auto) 0.2 10^3/uL (0.0-0.8) 08/19/22 19:56 Baso # (Auto) 0.1 10^3/uL (0.0-0.1) 08/19/22 19:56 Nucleated RBC % (auto) 0 % 08/19/22 19:56 Nucleated RBCs # 0.0 /100WBC 08/19/22 19:56 D-Dimer 2.15 ug/mIFEU (0-0.59) H 08/19/22 19:56 Sodium 137 mmol/L (136-145) 08/19/22 19:56 Potassium 4.2 mmol/L (3.5-5.1) 08/19/22 19:56 Chloride 103 mmol/L (98-107) 08/19/22 19:56 Carbon Dioxide 21 mmol/L (22-29) L 08/19/22 19:56 Anion Gap 17.2 (5-19) 08/19/22 19:56 BUN 24 mg/dL (6-20) H 08/19/22 19:56 Creatinine 0.9 mg/dL (0.7-1.2) 08/19/22 19:56 GFR Calculation 96.0 mL/min (90-130) 08/19/22 19:56 Glucose 110 mg/dL (65-115) 08/19/22 19:56 Calculated Osmolality 289 mOsm/kg (285-295) 08/19/22 19:56 Calcium 8.6 mg/dL (8.5-10.5) 08/19/22 19:56 Total Bilirubin 0.4 mg/dL (0.15-1.2) 08/19/22 19:56 AST 39 U/L (0-40) 08/19/22 19:56 ALT 62 U/L (0-41) H 08/19/22 19:56 Alkaline Phosphatase 74 U/L (40-130) 08/19/22 19:56 Troponin T Baseline 44 ng/L (0-15) H 08/19/22 19:56 Troponin T 120 Minute 38.84 ng/L (0-15) H 08/19/22 22:03 Delta Troponin T -5.16 ABS# (0-10) L 08/19/22 22:03 NT-Pro-B Natriuret Pep 1633 pg/mL (0-125) H 08/19/22 19:56 Total Protein 6.7 g/dL (6.6-8.7) 08/19/22 19:56 Albumin 3.6 g/dL (3.5-5.2) 08/19/22 19:56 Globulin 3.1 g/dL (1.3-4.6) 08/19/22 19:56 Lipase 34 U/L (13-60) 08/19/22 19:56 Influenza Type A Ag negative (Negative) 08/19/22 20:15 Influenza Type B Ag negative (Negative) 08/19/22 20:15 SARS-CoV-2 Ag (Rapid) negative (Negative) 08/19/22 20:15 EKG Data EKG 1: I personally reviewed and interpreted this EKG as follows: EKG interpretation date: 08/19/22 EKG interpretation time: 17:48 Interpretation: sinus tach hr [address] or t wave abnormalities qrs 102 qtc 429 Discharge Plan Discharge Patient Disposition: Home Clinical Impression: Chest pain, Pneumonia Condition: Stable Prescriptions: New doxycycline hyclate 100 mg capsule 100 mg PO BID 7 Days Qty: 14 0RF No Action metoprolol succinate 50 mg tablet extended release 24 hr 75 mg PO BID Qty: 270 2RF spironolactone 50 mg tablet 50 mg PO BID Qty: 60 0RF Rx Instructions: MUST have follow-up for further refills losartan 25 mg tablet 25 mg PO DAILY Qty: 30 0RF Rx Instructions: MUST have follow-up for further refills bumetanide 2 mg tablet 2 mg PO BID Qty: 60 0RF Rx Instructions: MUST have follow-up for further refills Discharge Orders: Discharge ED (Routine); Ordered 08/19/22 Ordered By: Anup Vann Referrals: Tevin Fallon DO [Primary Care Provider] - 1-3 days Discharge Diet: Advance as tolerated Discharge Activity: Resume usual activity Patient Instructions: Chest Pain (ED), Pneumonia (ED) Coding Level of Care Code ED Biomass Boiler Operator for Baljinder Reyna
[2022-08-19 20:33] LABS: Alanine Aminotransferase 62 U/L (0-41); Albumin Level 3.6 g/dL (3.5-5.2); Alkaline Phosphatase 74 U/L (40-130); Anion Gap 17.2 (5-19); Aspartate Amino Transferase 39 U/L (0-40); Blood Urea Nitrogen 24 mg/dL (6-20); Calcium 8.6 mg/dL (8.5-10.5); Carbon Dioxide 21 mmol/L (22-29); Chloride 103 mmol/L (98-107); Globulin 3.1 g/dL (1.3-4.6); Glucose 110 mg/dL (65-115); Lipase 34 U/L (13-60); NT Pro B Type Natriuretic Pept 1633 pg/mL (0-125); Osmolality Calculated 289 mOsm/kg (285-295); Potassium 4.2 mmol/L (3.5-5.1); Sodium 137 mmol/L (136-145); Total Bilirubin 0.4 mg/dL (0.15-1.2); Total Protein 6.7 g/dL (6.6-8.7)
[2022-08-19 20:58] LABS: D Dimer 2.15 ug/mIFEU (0-0.59)
--- NOTE | 2022-08-19 21:04 | CTR_ITS ---
PROCEDURE INFORMATION: Exam: CTA Chest With Contrast Exam date and time: 08/19/2022 9:13 PM Age: 37 years old Clinical indication: Abnormal findings; Abnormal diagnostic tests; Elevated d-dimer; Cough and shortness of breath; Patient HX: Cough with SOB. Elevated d dimer. History of chf. TECHNIQUE: Imaging protocol: Computed tomographic angiography of the chest with contrast. 3D rendering (Not supervised by radiologist): MIP and/or 3D reconstructed images were created by the technologist. Radiation optimization: All CT scans at this facility use at least one of these dose optimization techniques: automated exposure control; mA and/or kV adjustment per patient size (includes targeted exams where dose is matched to clinical indication); or iterative reconstruction. Contrast material: OMNI 350; Contrast volume: 100 ml; Contrast route: INTRAVENOUS (IV); REPORTING DATA: Count of CT and Cardiac NM exams in prior 12 months: This patient has received 0 known CTs and 0 known cardiac nuclear medicine studies in the 12 months prior to the current study. COMPARISON: CT angio chest PE protcl [id number] 03/28/2021 8:24 PM RADIATION DOSE METRICS: Total DLP (mGy-cm): 613.08 FINDINGS: Pulmonary arteries: Normal. No pulmonary emboli. Aorta: No aortic aneurysm. Lungs: A couple focal rounded opacities noted in the right middle lobe. Scattered areas of curvilinear atelectasis within the left upper and lower lobes as well as the right middle lobe. Pleural spaces: No pneumothorax. No pleural effusion. Heart: Cardiomegaly. No pericardial effusion. Lymph nodes: Multiple enlarged mediastinal lymph nodes measuring up to 1.7 cm in short axis which is most likely reactive to the findings within lobe. Bones/joints: No acute fracture. Soft tissues: Unremarkable. CT/CT angio chest PE protcl [id number] IMPRESSION: 1. Negative for pulmonary embolism. 2. There are a couple focal rounded opacities noted in the right middle lobe suspicious for pneumonia. 3. Multiple large mediastinal lymph nodes which are most likely reactive to the above process.
[2022-08-19 21:07] LABS: Influenza A by IFA negative (Negative); Influenza B by IFA negative (Negative); SARS Covid-2 Antigen negative (Negative)
[2022-08-19] MEDS: iohexol 350 mg/mL 500 mL Btl (per mL) IV (21:24)
--- NOTE | 2022-08-19 21:47 | ECG_ITS ---
[facility] Test Date: 2022-08-19 Pat Name: Dmitry Linares Department: Room: Gender: Male Balance Staff Staker: : 1985 Requested By: Marcus Villagomez Order Number: [id number] Luciano MD: Linnette De La Cruz M.D. Measurements Intervals [place] Rate: 92 P: 70 [place]: 158 QRS: -6 QRSD: 101 T: 107 QT: 402 QTc: 499 Interpretive Statements SINUS RHYTHM LEFT ATRIAL ENLARGEMENT [-0.15mV P-WAVE IN V1/V2] POSSIBLE RIGHT VENTRICULAR CONDUCTION DELAY [RSR (QR) IN V1/V2] POSSIBLE LEFT VENTRICULAR HYPERTROPHY [VOLTAGE CRITERIA PLUS LAE OR QRS WIDENING] NONSPECIFIC T-WAVE ABNORMALITY Compared to ECG 08/19/2022 17:48:30 Sinus tachycardia no longer present Possible ischemia no longer present T-wave abnormality still present Electronically Signed On 08-20-2022 23:48:12 INFANTRY ASSAULTMAN by Linnette De La Cruz M.D. [id number]
[2022-08-19 22:24] LABS: Troponin 5 2HR 38.84 ng/L (0-15)
[2022-08-19 22:25] LABS: Troponin 5 2HR Delta -5.16 ABS# (0-10)
[2022-08-19] MEDS: doxycycline 100 mg Tablet PO (22:42)
[2022-08-19 22:47] VITALS: PULSE 94; RESP 18; O2SAT 97
== END 2022-08-19 22:48 | disposition home or self-care (01) ==
PROVIDERS: Nurse Practitioner Family; Emergency Provider Emergency Medicine; PCP Family Medicine
DX: R07.9 Chest pain, unspecified (principal); J18.9 Pneumonia, unspecified organism; Z20.822 Contact with and (suspected) exposure to COVID-19; I50.9 Heart failure, unspecified; Z77.22 Contact with and (suspected) exposure to environmental tobacco smoke (acute) (chronic)
CPT/HCPCS: 71045; 71275; 80053; 83690; 83880; 84484; 85025; 85378; 87426; 87804; 93005; 99285; Q9967

== ENCOUNTER 2022-09-03 13:30 | Emergency (ER) | payer OTHER, SELFPAY ==
[2022-09-03 13:35] VITALS: BP 107/72; PULSE 98; RESP 16; TEMP 36.7; O2SAT 95; BMI 44.6
[2022-09-03 13:50] VITALS: BP 110/70; PULSE 95; O2SAT 97
--- NOTE | 2022-09-03 13:54 | XRR_ITS ---
PROCEDURE INFORMATION: Exam: XR Chest Exam date and time: 09/03/2022 1:58 PM Age: 37 years old Clinical indication: Cough and shortness of breath; Patient HX: History--sob, cough, leg swelling, HX chf TECHNIQUE: Imaging protocol: Radiologic exam of the chest. Views: 1 view. COMPARISON: CR (CHEST, ) 08/19/2022 7:58 PM FINDINGS: Lungs: There is a pulmonary mass in the lateral right lower lung measuring roughly 3.3 cm. The mass is partially obscured by ill-defined adjacent opacity. Previously 2 masses were visible, larger of which measured 4.6 cm. The left lung is clear. Pleural spaces: There is no pleural effusion or pneumothorax. Heart/Mediastinum: There is marked enlargement of the cardiac silhouette. Bones/joints: Bones are unremarkable. XR/XR chest 1V portable [id number] IMPRESSION: Right lower lung mass is decreased in size since 08/19/2022 and there is increased surrounding consolidation. Probable infection. Recommend radiographic follow-up to resolution to exclude neoplasm.
--- NOTE | 2022-09-03 14:05 | W.ED.EXTPRO ---
HPI - Extremity Problem General: Chief complaint: Extremity Problem,Nontraumatic Stated complaint: feet swelling Time Seen by Provider: 09/03/22 13:42 History of Present Illness: Patient comes in with swelling in his lower extremities and dyspnea on exertion. States that he has a history of congestive heart failure. He is on spironolactone and Bumex. States that he took a 12-hour car ride here recently and since then he has had increased swelling in his lower extremities. States that he has taken extra doses of his diuretics but continues to swell. States he is having some mild dyspnea on exertion. Associated symptoms: Deny chest pain, fever(s) or rash Review of Systems Const: Denies: fever(s) or body aches Eyes: Denies: change in vision or blurry vision ENMT: Denies: throat pain or odynophagia Card: Denies: chest pain or palpitations Resp: Reports: dyspnea; Denies: productive cough GI: Denies: abdominal pain, nausea or vomiting : Denies: flank pain or dysuria Musc: Reports: other (Swelling of bilateral lower legs); Denies: neck pain or back pain Skin/Breast: Denies: rash or pruritus Neuro: Denies: headache(s) or numbness in extremities Psych: Denies: anxiety or change in appetite Endo: Denies: polyuria or excessive sweating PFSH ED PFSH: Medical History Cardiomyopathy CHF (congestive heart failure), NYHA class III CHF exacerbation Non-ischemic cardiomyopathy Normal coronary angiogram Obesity ROCHELLE (obstructive sleep apnea) Second hand smoke exposure Upper leg DVT (deep venous thromboembolism), acute Surgical History History of cardiac cath No pertinent past surgical history Family History Father CHF (congestive heart failure) Other CAD (coronary artery disease) Social History Second hand smoke exposure: Yes Alcohol intake: former Physical Exam Const: COMMON NORMALS: no acute distress, patient oriented x3, healthy appearing and alert HENMT: COMMON NORMALS: normocephalic and atraumatic HEAD & SCALP: normocephalic and atraumatic Eye: COMMON NORMALS: Equal, round and reactive pupils present and EOMs intact bilaterally PUPIL: Yes Equal, round and reactive pupils present Neck/C-Spine: COMMON NORMALS: full ROM and supple Resp: COMMON NORMALS: normal respiratory effort, No retractions and No use of accessory muscles Cardio: COMMON NORMALS: regular rate and regular rhythm RATE: regular rate RHYTHM: regular rhythm GI: COMMON NORMALS: Normal to inspection, nondistended, normoactive bowel sounds present, Soft to palpation and non-tender PALPATION: Yes Soft to palpation Back/Pelvis: COMMON NORMALS: thoracic and lumbar spine normal to inspection and no thoracic nor lumbar tenderness Extremity: COMMON NORMALS: full ROM OTHER: 3+ pitting edema of bilateral lower extremities with chronic venous stasis changes Neuro: COMMON NORMALS: patient oriented x3 SENSORIUM/ORIENTATION: Yes alert Psych: COMMON NORMALS: mental status grossly normal and cooperative Skin: COMMON NORMALS: no rashes or lesions noted and no wounds GENERAL SKIN EXAM: no rashes or lesions noted Course Vital Signs: Vital signs: Vital Signs Temperature 98.0 F 09/03/22 13:35 Pulse Rate 88 09/03/22 15:00 Respiratory Rate 16 09/03/22 13:35 Blood Pressure 114/85 09/03/22 15:00 Pulse Oximetry 96 09/03/22 15:00 Oxygen Delivery Me thod 09/03/22 15:00 MDM - Extremity (Nontraumatic) Medical Decision Making Patient comes in with swelling in his lower extremities and dyspnea on exertion. States that he has a history of congestive heart failure. He is on spironolactone and Bumex. States that he took a 12-hour car ride here recently and since then he has had increased swelling in his lower extremities. States that he has taken extra doses of his diuretics but continues to swell. States he is having some mild dyspnea on exertion. On physical exam he has 3+ pitting edema bilateral lower extremities with chronic venous stasis changes. His lungs are clear to auscultation. His oxygen sats are in the high 90s on room air. He appears to be in no respiratory distress. Will check labs, EKG, give IV Lasix, and reassess. On reassessment I talked to the patient about his test results. His creatinine is slightly elevated today which I suspect is secondary to his extra diuretic use. We discussed the findings on x-ray compared to his previous CT. The patient has no productive cough fever or other signs of pneumonia. I encouraged him to follow-up with his primary care doc for repeat imaging as needed. Will discharge home at this time and encourage careful and appropriate hydration, with precautions to return for worsening or changing symptoms. Lab Data 09/03/22 14:05 09/03/22 14:05 Radiology Impressions Chest X-Ray 09/03/22 13:54 IMPRESSION: Right lower lung mass is decreased in size since 08/19/2022 and there is increased surrounding consolidation. Probable infection. Recommend radiographic follow-up to resolution to exclude neoplasm. Laboratory Results WBC 9.9 10^3/uL (4.0-10.0) 09/03/22 14:05 RBC 5.73 10^6/uL (4.1-5.3) H 09/03/22 14:05 Hgb 14.8 g/dL (11.7-16.6) 09/03/22 14:05 Hct 46.6 % (42.0-52.0) 09/03/22 14:05 MCV 81.3 fl (80-94) 09/03/22 14:05 MCH 25.8 pg (28.0-34.0) L 09/03/22 14:05 MCHC 31.8 g/dL (30.0-36.0) 09/03/22 14:05 RDW 15.3 % (12.1-15.1) H 09/03/22 14:05 Plt Count 274 10^3/cmm (130-400) 09/03/22 14:05 MPV 10.4 fL (7.4-10.4) 09/03/22 14:05 Neut % (Auto) 63.5 % 09/03/22 14:05 Lymph % (Auto) 23.6 % 09/03/22 14:05 Kings % (Auto) 8.8 % 09/03/22 14:05 Eos % (Auto) 1.8 % 09/03/22 14:05 Baso % (Auto) 1.6 % 09/03/22 14:05 Neut # (Auto) 6.31 10^3/uL (1.8-7.7) 09/03/22 14:05 Lymph # (Auto) 2.3 10^3/uL (0.8-4.8) 09/03/22 14:05 Kings # (Auto) 0.9 10^3/uL (0.2-0.9) 09/03/22 14:05 Eos # (Auto) 0.2 10^3/uL (0.0-0.8) 09/03/22 14:05 Baso # (Auto) 0.2 10^3/uL (0.0-0.1) H 09/03/22 14:05 Nucleated RBC % (auto) 0 % 09/03/22 14:05 Nucleated RBCs # 0.0 /100WBC 09/03/22 14:05 Sodium 138 mmol/L (136-145) 09/03/22 14:05 Potassium 4.3 mmol/L (3.5-5.1) 09/03/22 14:05 Chloride 101 mmol/L (98-107) 09/03/22 14:05 Carbon Dioxide 24 mmol/L (22-29) 09/03/22 14:05 Anion Gap 17.3 (5-19) 09/03/22 14:05 BUN 22 mg/dL (6-20) H 09/03/22 14:05 Creatinine 1.5 mg/dL (0.7-1.2) H 09/03/22 14:05 GFR Calculation 53.3 mL/min (90-130) L 09/03/22 14:05 Glucose 94 mg/dL (65-115) 09/03/22 14:05 Calculated Osmolality 289 mOsm/kg (285-295) 09/03/22 14:05 Calcium 8.6 mg/dL (8.5-10.5) 09/03/22 14:05 Total Bilirubin 0.7 mg/dL (0.15-1.2) 09/03/22 14:05 AST 37 U/L (0-40) 09/03/22 14:05 ALT 44 U/L (0-41) H 09/03/22 14:05 Alkaline Phosphatase 58 U/L (40-130) 09/03/22 14:05 NT-Pro-B Natriuret Pep 1195 pg/mL (0-125) H 09/03/22 14:05 Total Protein 6.4 g/dL (6.6-8.7) L 09/03/22 14:05 Albumin 3.6 g/dL (3.5-5.2) 09/03/22 14:05 Globulin 2.8 g/dL (1.3-4.6) 09/03/22 14:05 Discharge Plan Discharge Patient Disposition: Home Clinical Impression: Lower extremity edema Condition: Stable Prescriptions: No Action metoprolol succinate 50 mg tablet extended release 24 hr 75 mg PO BID Qty: 270 2RF spironolactone 50 mg tablet 50 mg PO BID Qty: 60 0RF Rx Instructions: MUST have follow-up for further refills bumetanide 2 mg tablet 2 mg PO BID Qty: 60 0RF Rx Instructions: MUST have follow-up for further refills sildenafil 50 mg tablet 25 - 50 mg PO PRN PRN (Reason: Erectile Dysfunction) losartan 25 mg tablet 25 mg PO QAM Rx Instructions: MUST have follow-up for further refills Discharge Orders: Discharge ED (Routine); Ordered 09/03/22 Ordered By: Brad Dallas Referrals: Tevin Fallon DO [Primary Care Provider] - Patient Instructions: Edema (ED) Coding Level of Care Code ED Commercial Loan Officer for Baljinder Reyna
[2022-09-03] MEDS: FUROsemide 10 mg/mL SDV 4mL 40 MG IVP (14:11)
[2022-09-03 14:13] VITALS: BP 111/82; PULSE 93; O2SAT 97
[2022-09-03 14:30] LABS: Basophils # 0.2 10^3/uL (0.0-0.1); Basophils % 1.6 %; Eosinophils # 0.2 10^3/uL (0.0-0.8); Eosinophils % 1.8 %; Hematocrit 46.6 % (42.0-52.0); Hemoglobin 14.8 g/dL (11.7-16.6); Lymphocytes # 2.3 10^3/uL (0.8-4.8); Lymphocytes % 23.6 %; Mean Corpuscular HGB Conc 31.8 g/dL (30.0-36.0); Mean Corpuscular Hemoglobin 25.8 pg (28.0-34.0); Mean Corpuscular Volume 81.3 fl (80-94); Mean Platelet Volume 10.4 fL (7.4-10.4); Monocytes # 0.9 10^3/uL (0.2-0.9); Monocytes % 8.8 %; Neutrophils # 6.31 10^3/uL (1.8-7.7); Neutrophils % 63.5 %; Nucleated Red Blood Cells % 0 %; Platelet Count 274 10^3/cmm (130-400); Red Blood Count 5.73 10^6/uL (4.1-5.3); Red Cell Distribution Width 15.3 % (12.1-15.1); White Blood Count 9.9 10^3/uL (4.0-10.0)
[2022-09-03 15:00] VITALS: BP 114/85; PULSE 88; O2SAT 96
[2022-09-03 15:02] LABS: Alanine Aminotransferase 44 U/L (0-41); Albumin Level 3.6 g/dL (3.5-5.2); Alkaline Phosphatase 58 U/L (40-130); Blood Urea Nitrogen 22 mg/dL (6-20); Calcium 8.6 mg/dL (8.5-10.5); Carbon Dioxide 24 mmol/L (22-29); Chloride 101 mmol/L (98-107); Globulin 2.8 g/dL (1.3-4.6); Glomerular Filtration Rate 53.3 mL/min (90-130); Glucose 94 mg/dL (65-115); NT Pro B Type Natriuretic Pept 1195 pg/mL (0-125); Osmolality Calculated 289 mOsm/kg (285-295); Sodium 138 mmol/L (136-145); Total Bilirubin 0.7 mg/dL (0.15-1.2); Total Protein 6.4 g/dL (6.6-8.7)
[2022-09-03 15:03] LABS: Anion Gap 17.3 (5-19); Aspartate Amino Transferase 37 U/L (0-40); Potassium 4.3 mmol/L (3.5-5.1)
--- NOTE | 2022-09-03 15:10 | PC.PHAR ---
PT STATES HE IS STILL TAKING THE MEDICATIONS ENTERED -BUMETANIDE 2MG BID,LOSARTAN 25MG QAM AND SPIRONOLACTONE 50MG BID FILLED 07/02/22 30D/S NO REFILLS PT STATES HE HAD A BUILD UP THESE MEDICATIONS-METOPROLOL SUCCINATE 50MG TAKE 75MG BID FILLED 11/11/22 90D/S PT STATES HAD BUILD UP AND IS STILL TAKING-NOTES ARE MADE IN THE PHARMACY COMMENTS
== END 2022-09-03 15:50 | disposition home or self-care (01) ==
PROVIDERS: Emergency Provider Emergency Medicine; PCP Family Medicine
DX: R60.0 Localized edema (principal); I50.9 Heart failure, unspecified; Z77.22 Contact with and (suspected) exposure to environmental tobacco smoke (acute) (chronic)
CPT/HCPCS: 36415; 71045; 80053; 83880; 85025; 96374; 99284; J1940

== ENCOUNTER 2022-09-10 21:52 | Emergency (ER) | payer OTHER, SELFPAY ==
[2022-09-10 21:56] VITALS: BP 150/101; PULSE 84; RESP 19; TEMP 36.7; O2SAT 96
[2022-09-10 22:14] LABS: Basophils # 0.2 10^3/uL (0.0-0.1); Basophils % 1.3 %; Eosinophils # 0.2 10^3/uL (0.0-0.8); Eosinophils % 1.2 %; Hematocrit 49.1 % (42.0-52.0); Hemoglobin 15.2 g/dL (11.7-16.6); Lymphocytes # 2.3 10^3/uL (0.8-4.8); Lymphocytes % 15.7 %; Mean Corpuscular Hemoglobin 24.8 pg (28.0-34.0); Mean Corpuscular Volume 80.1 fl (80-94); Mean Platelet Volume 10.2 fL (7.4-10.4); Monocytes # 1.3 10^3/uL (0.2-0.9); Monocytes % 8.5 %; Neutrophils # 10.64 10^3/uL (1.8-7.7); Neutrophils % 72.4 %; Nucleated Red Blood Cells % 0 %; Platelet Count 276 10^3/cmm (130-400); Red Blood Count 6.13 10^6/uL (4.1-5.3); White Blood Count 14.7 10^3/uL (4.0-10.0)
[2022-09-10 22:33] LABS: Alanine Aminotransferase 37 U/L (0-41); Alkaline Phosphatase 60 U/L (40-130); Anion Gap 16.6 (5-19); Aspartate Amino Transferase 30 U/L (0-40); Blood Urea Nitrogen 28 mg/dL (6-20); Carbon Dioxide 27 mmol/L (22-29); Chloride 101 mmol/L (98-107); Globulin 3.2 g/dL (1.3-4.6); Glomerular Filtration Rate 53.3 mL/min (90-130); Glucose 118 mg/dL (65-115); Lipase 46 U/L (13-60); Osmolality Calculated 297 mOsm/kg (285-295); Potassium 4.6 mmol/L (3.5-5.1); Sodium 140 mmol/L (136-145); Total Bilirubin 1.2 mg/dL (0.15-1.2); Total Protein 7.2 g/dL (6.6-8.7)
--- NOTE | 2022-09-10 23:08 | XRR_ITS ---
PROCEDURE INFORMATION: Exam: XR Chest Exam date and time: 09/10/2022 11:16 PM Age: 37 years old Clinical indication: Shortness of breath; Additional info: SOB TECHNIQUE: Imaging protocol: Radiologic exam of the chest. Views: 1 view. COMPARISON: CR XR chest 1V portable [id number] 09/03/2022 1:58 PM, chest CT from 08/19/2022 FINDINGS: Lungs: There is a persisting 2.8 cm noncalcified nodular density in the right lower lobe which was better seen on the recent CT. Suspect this is a pulmonary infarct due to occlusive PE. Think that is occluded No acute infiltrate or effusion. Pleural spaces: Unremarkable. No pleural effusion. No pneumothorax. Heart/Mediastinum: The heart remains enlarged. Bones/joints: Unremarkable. XR/XR chest 1V portable [id number] IMPRESSION: 1. Persisting right lower lobe noncalcified nodule. This could be a pulmonary infarct from nonacute occlusive embolism. 2. Unchanged cardiomegaly
--- NOTE | 2022-09-10 23:08 | USR_ITS ---
PROCEDURE INFORMATION: Exam: US Abdomen, Limited; Right Upper Quadrant Exam date and time: 09/10/2022 11:56 PM Age: 37 years old Clinical indication: Abdominal pain; Patient HX: N+v x 1 day, bloating x 2 weeks, ruq pain tonight; Additional info: Abd pain TECHNIQUE: Imaging protocol: Real time ultrasound of the abdomen with image documentation. Limited exam focused on the right upper quadrant. COMPARISON: CT angio chest PE protcl [id number] 08/19/2022 9:13 PM FINDINGS: Liver: The liver is mildly enlarged and heterogeneous suggesting some underlying steatosis. Gallbladder: The gallbladder is normal in size but contains small shadowing calculi. The gallbladder wall is thickened up to 8 mm which is a nonspecific finding. No surrounding edema. However there is a positive sonographic Chambers sign. Biliary ducts: The common bile duct measures 5-6 mm which is still within normal limits for age. No visible ductal stones. Pancreas: Visualized pancreas is unremarkable. Right kidney: The right kidney is unremarkable. Intraperitoneal space: No right upper quadrant ascites. US/US gall bladder [id number] IMPRESSION: 1. Cholelithiasis with nonspecific gallbladder wall thickening but no surrounding edema. 2. Positive sonographic Chambers's sign. 3. No abnormal distention of the biliary tree or common duct.
--- NOTE | 2022-09-10 23:09 | ED_ITS ---
HPI - Nausea/Vomiting/Diarrhea General: Chief complaint: Nausea/Vomiting/Diarrhea Stated complaint: N/V, upper abd pain Time Seen by Provider: 09/10/22 22:03 Source: patient Mode of arrival: ambulatory Limitations: no limitations History of Present Illness: 37-year-old male states he had eaten a sepsis emergency knee started having some abdominal cramping and had vomiting. States since vomiting his pain has improved states pain is currently a 5 out of 10 its in his epigastric region. He does have a history of CHF he states he has chronic shortness of breath he has been having some shortness of breath today he is resting comfortably here in no distress able to speak in full sentences. Associated nausea: Yes Associated symtoms: Reports nausea; Denies chest pain, dysuria or headache(s) Review of Systems Const: Denies: fever(s), chills, body aches or change in appetite Eyes: Denies: blurry vision or eye discomfort ENMT: Denies: throat pain or dental pain Card: Denies: chest pain Resp: Reports: dyspnea GI: Reports: abdominal pain, nausea and vomiting : Denies: dysuria Musc: Denies: neck pain or back pain Skin/Breast: Denies: rash Neuro: Denies: headache(s) Psych: Denies: depression Portillo/Lymph: Denies: easy bruising All/Imm: Denies: urticaria PFSH ED PFSH: Medical History Cardiomyopathy CHF (congestive heart failure), NYHA class III CHF exacerbation Non-ischemic cardiomyopathy Normal coronary angiogram Obesity ROCHELLE (obstructive sleep apnea) Second hand smoke exposure Upper leg DVT (deep venous thromboembolism), acute Surgical History History of cardiac cath No pertinent past surgical history Family History Father CHF (congestive heart failure) Other CAD (coronary artery disease) Social History Smoking and tobacco status: never smoked Second hand smoke exposure: No Smoking risk assessment/counseling performed?: No Alcohol intake: former Desire information about alcohol rehabilitation?: No Counseling given: No Desire information about substance/drug rehabilitation?: No Counseling given: No Physical Exam Const: COMMON NORMALS: no acute distress, patient oriented x3 and healthy appearing HENMT: COMMON NORMALS: normocephalic and atraumatic HEAD & SCALP: normocephalic and atraumatic Eye: COMMON NORMALS: Equal, round and reactive pupils present and EOMs intact bilaterally PUPIL: Yes Equal, round and reactive pupils present Neck/C-Spine: COMMON NORMALS: full ROM and supple Chest: COMMONS NORMALS: normal inspection of the chest and normal palpation of entire chest wall Resp: COMMON NORMALS: normal respiratory effort, No retractions, No use of accessory muscles and clear to auscultation bilaterally AUSCULTATION: clear to auscultation bilaterally Cardio: COMMON NORMALS: regular rate, regular rhythm and No murmurs present (Cardio) RATE: regular rate RHYTHM: regular rhythm GI: COMMON NORMALS: Normal to inspection, nondistended, normoactive bowel sounds present, Soft to palpation, non-tender and no masses PALPATION: Yes Soft to palpation Extremity: COMMON NORMALS: normal to inspection and full ROM Neuro: COMMON NORMALS: patient oriented x3, moves all extremities and no focal motor deficits Psych: COMMON NORMALS: mental status grossly normal, Normal thought process present and cooperative THOUGHT PROCESS: Normal thought process present Skin: COMMON NORMALS: no rashes or lesions noted and no wounds GENERAL SKIN EXAM: no rashes or lesions noted Course Vital Signs: Vital signs: Vital Signs Temperature 98.0 F 09/10/22 21:56 Pulse Rate 94 09/10/22 23:28 Respiratory Rate 16 09/10/22 23:28 Blood Pressure 134/79 09/10/22 23:28 Pulse Oximetry 97 09/10/22 23:28 Oxygen Delivery Me thod 09/10/22 21:56 MDM - Nausea/Vomiting/Diarrhea Medical Decision Making Patient presents here with abdominal pain along vomiting does have gallstones on ultrasound no signs of cholecystitis he has no abdominal tenderness at discharge White count is normal we will place him on Cipro pain meds and Zofran we will get him follow-up with surgeon he is return if he has a fever or worsening pain. Lab Data 09/10/22 22:05 09/10/22 22:05 Radiology Impressions Chest X-Ray 09/10/22 23:08 IMPRESSION: 1. Persisting right lower lobe noncalcified nodule. This could be a pulmonary infarct from nonacute occlusive embolism. 2. Unchanged cardiomegaly Gallbladder Ultrasound 09/10/22 23:08 IMPRESSION: 1. Cholelithiasis with nonspecific gallbladder wall thickening but no surrounding edema. 2. Positive sonographic Chambers's sign. 3. No abnormal distention of the biliary tree or common duct. Laboratory Results WBC 14.7 10^3/uL (4.0-10.0) H 09/10/22 22:05 RBC 6.13 10^6/uL (4.1-5.3) H 09/10/22 22:05 Hgb 15.2 g/dL (11.7-16.6) 09/10/22 22:05 Hct 49.1 % (42.0-52.0) 09/10/22 22:05 MCV 80.1 fl (80-94) 09/10/22 22:05 MCH 24.8 pg (28.0-34.0) L 09/10/22 22:05 MCHC 31.0 g/dL (30.0-36.0) 09/10/22 22:05 RDW 15.0 % (12.1-15.1) 09/10/22 22:05 Plt Count 276 10^3/cmm (130-400) 09/10/22 22:05 MPV 10.2 fL (7.4-10.4) 09/10/22 22:05 Neut % (Auto) 72.4 % 09/10/22 22:05 Lymph % (Auto) 15.7 % 09/10/22 22:05 Angelina % (Auto) 8.5 % 09/10/22 22:05 Eos % (Auto) 1.2 % 09/10/22 22:05 Baso % (Auto) 1.3 % 09/10/22 22:05 Neut # (Auto) 10.64 10^3/uL (1.8-7.7) H 09/10/22 22:05 Lymph # (Auto) 2.3 10^3/uL (0.8-4.8) 09/10/22 22:05 Angelina # (Auto) 1.3 10^3/uL (0.2-0.9) H 09/10/22 22:05 Eos # (Auto) 0.2 10^3/uL (0.0-0.8) 09/10/22 22:05 Baso # (Auto) 0.2 10^3/uL (0.0-0.1) H 09/10/22 22:05 Nucleated RBC % (auto) 0 % 09/10/22 22:05 Nucleated RBCs # 0.0 /100WBC 09/10/22 22:05 Sodium 140 mmol/L (136-145) 09/10/22 22:05 Potassium 4.6 mmol/L (3.5-5.1) 09/10/22 22:05 Chloride 101 mmol/L (98-107) 09/10/22 22:05 Carbon Dioxide 27 mmol/L (22-29) 09/10/22 22:05 Anion Gap 16.6 (5-19) 09/10/22 22:05 BUN 28 mg/dL (6-20) H 09/10/22 22:05 Creatinine 1.5 mg/dL (0.7-1.2) H 09/10/22 22:05 GFR Calculation 53.3 mL/min (90-130) L 09/10/22 22:05 Glucose 118 mg/dL (65-115) H 09/10/22 22:05 Calculated Osmolality 297 mOsm/kg (285-295) H 09/10/22 22:05 Calcium 9.0 mg/dL (8.5-10.5) 09/10/22 22:05 Total Bilirubin 1.2 mg/dL (0.15-1.2) 09/10/22 22:05 AST 30 U/L (0-40) 09/10/22 22:05 ALT 37 U/L (0-41) 09/10/22 22:05 Alkaline Phosphatase 60 U/L (40-130) 09/10/22 22:05 NT-Pro-B Natriuret Pep 2507 pg/mL (0-125) H 09/10/22 22:05 Total Protein 7.2 g/dL (6.6-8.7) 09/10/22 22:05 Albumin 4.0 g/dL (3.5-5.2) 09/10/22 22:05 Globulin 3.2 g/dL (1.3-4.6) 09/10/22 22:05 Lipase 46 U/L (13-60) 09/10/22 22:05 Discharge Plan Discharge Patient Disposition: Home Clinical Impression: Vomiting, Cholelithiasis Condition: Stable Prescriptions: New hydrocodone-acetaminophen 5-325 mg tablet 1 tab PO Q6H PRN (Reason: pain) Qty: 14 0RF Cipro 500 mg tablet 500 mg PO BID Qty: 14 0RF ondansetron 4 mg tablet,disintegrating 4 mg PO Q6H PRN (Reason: nausea and vomiting) Qty: 14 0RF No Action metoprolol succinate 50 mg tablet extended release 24 hr 75 mg PO BID Qty: 270 2RF spironolactone 50 mg tablet 50 mg PO BID Qty: 60 0RF Rx Instructions: MUST have follow-up for further refills bumetanide 2 mg tablet 2 mg PO BID Qty: 60 0RF Rx Instructions: MUST have follow-up for further refills sildenafil 50 mg tablet 25 - 50 mg PO PRN PRN (Reason: Erectile Dysfunction) losartan 25 mg tablet 25 mg PO QAM Rx Instructions: MUST have follow-up for further refills Discharge Orders: Discharge ED (Routine); Ordered 09/11/22 Ordered By: Anup Vann Referrals: Tevin Fallon DO [Primary Care Provider] - Hebert Roberts DO [Physician] - 1-3 days Discharge Diet: Advance as tolerated Discharge Activity: Resume usual activity Patient Instructions: Gallstones (ED), Opioid Safety Coding Level of Care Code ED Field Professional for Baljinder Reyna
[2022-09-10 23:24] VITALS: RESP 16
[2022-09-10] MEDS: sodium chloride 0.9% 500 ML 999 ML IV (23:24)
[2022-09-10] MEDS: ondansetron 2 mg/ML SDV 2 mL 4 MG IVP (23:24)
[2022-09-10] MEDS: morphine 4 mg/mL SDV 1 mL IVP (23:24)
[2022-09-10 23:28] VITALS: BP 134/79; PULSE 94; RESP 16; O2SAT 97
--- NOTE | 2022-09-10 23:28 | ECG_ITS ---
[facility] Test Date: 2022-09-10 Pat Name: Dmitry Linares Department: Room: Gender: Male [employer]: : 1985 Requested By: Anup Vann Order Number: [id number] Luciano MD: John Cornejo M.D. Measurements Intervals [place] Rate: 93 P: 41 GA: 158 QRS: -12 QRSD: 101 T: 110 QT: 395 QTc: 492 Interpretive Statements SINUS RHYTHM POSSIBLE LEFT ATRIAL ENLARGEMENT [-0.1mV P-WAVE IN V1/V2] POSSIBLE RIGHT VENTRICULAR CONDUCTION DELAY [RSR (QR) IN V1/V2] POSSIBLE LEFT VENTRICULAR HYPERTROPHY [VOLTAGE CRITERIA PLUS LAE OR QRS WIDENING] MODERATE T-WAVE ABNORMALITY, CONSIDER LATERAL ISCHEMIA [-0.1+ mV T-WAVE IN I/aVL/V5/V6] Compared to ECG 08/19/2022 21:54:00 Possible ischemia now present T-wave abnormality still present Electronically Signed On 09-11-2022 15:54:06 CDT by John Cornejo M.D. [id number]
[2022-09-10 23:36] LABS: NT Pro B Type Natriuretic Pept 2507 pg/mL (0-125)
[2022-09-11 01:13] VITALS: BP 119/85; PULSE 91; RESP 16; O2SAT 96
--- NOTE | 2022-09-11 11:53 | DCPLANNER ---
Addendum entered by Shirley Franks 09/14/22 11:06: manager culinary received the following message from the general surgery clinic regarding follow up appointment: We cannot see patients, I have spoke with patient. manager culinary called patient to confirm where patient would like referral sent. manager culinary unable to speak with patient at this time, a voicemail was left for patient to return block and case maker phone call. Original Note: manager culinary had message to schedule a follow up appointment for patient with general surgery. manager culinary sent patients information to the front office staff at general surgery. Patients information will be printed and reviewed. Clinic will call patient with appointment information.
== END 2022-09-11 01:17 | disposition home or self-care (01) ==
PROVIDERS: Emergency Provider Emergency Medicine; PCP Family Medicine
DX: K80.20 Calculus of gallbladder without cholecystitis without obstruction (principal); I50.9 Heart failure, unspecified
CPT/HCPCS: 36415; 71045; 76705; 80053; 83690; 83880; 85025; 93005; 96361; 96374; 96375; 99285; J2270; J2405; J7040

== ENCOUNTER → 2022-09-24 14:10 | Outpatient (BNVA) | payer OTHER, SELFPAY | PROVIDERS: PCP Family Medicine; Visit Provider Internal Medicine | DX: I50.9 Heart failure, unspecified (principal) | CPT/HCPCS: 36415; 80048; 83880 ==

== ENCOUNTER → 2022-10-19 14:56 | Outpatient (BNVA) | payer OTHER, SELFPAY | PROVIDERS: PCP Family Medicine; Visit Provider Family Medicine | DX: I42.8 Other cardiomyopathies (principal); I50.9 Heart failure, unspecified | CPT/HCPCS: 80053; 85025 ==

== ENCOUNTER → 2023-12-27 14:38 | Outpatient (BNVA) | payer OTHER, SELFPAY | DX: I50.9 Heart failure, unspecified (principal) | CPT/HCPCS: 80053; 80061; 83880; 85025 ==

== ENCOUNTER → 2024-04-11 15:46 | Outpatient (BNVA) | payer OTHER, SELFPAY | DX: I50.9 Heart failure, unspecified (principal) | CPT/HCPCS: 80053 ==

== ENCOUNTER 2024-07-04 08:03 | Inpatient (IN) | payer SELFPAY ==
[2024-07-04] VITALS (100 sets, daily range): BP systolic 65–122; BP diastolic 31–71; PULSE 93–194; RESP 10–50; TEMP 36.6–37.2; O2SAT 87–100; BMI 46.0
--- NOTE | 2024-07-04 08:09 | ECG_ITS ---
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 Measurements Intervals [place] Rate: 95 P: 61 [place]: 159 QRS: -17 QRSD: 102 T: 134 QT: 344 QTc: 434 Interpretive Statements SINUS RHYTHM POSSIBLE LEFT ATRIAL ENLARGEMENT [-0.1mV P-WAVE IN V1/V2] POSSIBLE RIGHT VENTRICULAR CONDUCTION DELAY [RSR (QR) IN V1/V2] LEFT VENTRICULAR HYPERTROPHY AND ST-T CHANGE [VOLTAGE CRITERIA PLUS ST/T ABNORMALITY] Compared to ECG 09/10/2022 23:28:49 ST (T wave) deviation now present T-wave abnormality no longer present Possible ischemia no longer present Electronically Signed On 07-08-2024 23:19:26 STARCHMAKER by John Cornejo M.D. [id number]
--- NOTE | 2024-07-04 08:13 | ED_ITS ---
HPI - Nausea/Vomiting/Diarrhea 2 General: Chief complaint: Shortness of Breath/Dyspnea Stated complaint: NVD Time Seen by Provider: 07/04/24 08:09 History of Present Illness: 39-year-[facility] of shortness of breath and diarrhea he said diarrhea for the last several days. Patient has a history of nonischemic cardiomyopathy. On our records going back to June 2021 was his last visit with Dr. Walton. The documentation there shows that he had an EF of around 15 to 20% he has not been seen since that time in the interim however he was incarcerated he tells me he had an echocardiogram that showed an echo ejection fraction of 38%. He also reports he has a history of some valvular disease he did previously have an angiogram that did not show any coronary artery disease. Patient reports having valvular disease he thinks it is aorta or aortic valve however in the echo we do have documentation of from 2020 insights he has pulmonary hypertension there is also a dilated left ventricle on the cath report. Over the last several days he is had increasing his swelling in his lower extremities with skin down breakdown and ulcerations weeping of serous fluid from his left lower leg. In addition to this he has had diarrhea. He denies any hematochezia or melena. On arrival here patient is significantly hypotensive with a blood pressure of 66 systolic. He denies orthopnea he is not having any chest pain at this time he maintains oxygen sats at 100% and he is not having any shortness of breath when reclined to less than 30 degree elevation of the head of the bed. Patient reports he has not urinated in 3 days Patient reports he was incarcerated in [facility]. We are going to attempt to get old records from there although I am uncertain how likely we are to obtain them. He has agreed to sign a release. Associated nausea: Yes Associated symtoms: Reports nausea; Denies chest pain or dysuria Related Data Previous Rx's Medication Instructions Recorded metoprolol succinate 100 mg 100 mg PO DAILY #30 tabs 04/11/24 tablet,extended release 24 hr spironolactone 25 mg tablet 25 mg PO DAILY #90 tabs 04/11/24 atorvastatin 10 mg tablet 10 mg PO DAILY #30 tabs 05/17/24 furosemide 40 mg tablet 40 mg PO DAILY #90 tabs 05/17/24 lisinopril 10 1 tab PO DAILY #90 tabs 05/17/24 mg-hydrochlorothiazide 12.5 mg tablet Allergies Allergy/AdvReac Type Severity Reaction Status Date / Time No Known Allergies Allergy Verified 07/04/24 08:08 Review of Systems 2 Const: Denies: fever(s) or chills Card: Denies: chest pain Resp: Denies: dyspnea GI: Reports: nausea and vomiting; Denies: abdominal pain : Denies: dysuria, urinary frequency or urinary urgency Musc: Denies: neck pain or back pain Skin/Breast: Denies: rash PFSH ED 2 PFSH: Medical History Obesity CHF exacerbation ROCHELLE (obstructive sleep apnea) Non-ischemic cardiomyopathy Normal coronary angiogram Upper leg DVT (deep venous thromboembolism), acute Second hand smoke exposure Cardiomyopathy CHF (congestive heart failure), NYHA class III Surgical History History of cardiac cath No pertinent past surgical history Family History Father Congestive heart failure (CHF) Other CAD (coronary artery disease) Social History Smoking and tobacco/nicotine status: never used tobacco/nicotine Second hand smoke exposure: No Alcohol intake: former Substance/Drug Use: never Physical Exam 2 Const: GENERAL APPEARANCE: cooperative ORIENTATION/CONSCIOUSNESS: Yes awake, Yes oriented to person, Yes oriented to place and Yes oriented to time HENMT: COMMON NORMALS: normocephalic, atraumatic and hearing grossly normal bilaterally HEAD & SCALP: normocephalic and atraumatic Resp: COMMON NORMALS: normal respiratory effort, No retractions, No use of accessory muscles and clear to auscultation bilaterally AUSCULTATION: clear to auscultation bilaterally Cardio: COMMON NORMALS: regular rate, regular rhythm and No murmurs present (Cardio) RATE: regular rate RHYTHM: regular rhythm GI: COMMON NORMALS: Soft to palpation and No hepatosplenomegaly present A USCULTATION: Yes normoactive bowel sounds PALPATION: Yes Soft to palpation, No Tenderness to palpation present (GI), No Guarding due to palpation present (GI) and Yes No hepatosplenomegaly present Extremity: OTHER: 3+ edema lower extremities extending to the thighs with open wounds with serous drainage particularly of the left lower leg. No induration or purulent drainage or abscess noted. Patient has some excoriated areas in the lateral antecubital fossa bilaterally. Neuro: SENSORIUM/ORIENTATION: Yes oriented to person, Yes oriented to place and Yes oriented to time Skin: COMMON NORMALS: no rashes or lesions noted GENERAL SKIN EXAM: no rashes or lesions noted Procedures Central Line Placement Right IJ: Time Out Performed: Yes Patient Placed on Monitor/Pulse Ox: Yes MD Prep: mask, gown and gloves Central Line Prep: Chlorhexidine scrub Local Anesthetic: lidocaine 1% Amount of anesthesia used (mL): 5 Ultrasound Used for Placement: Yes Central Line Lumen Inserted: triple Post Procedure: sutured in place, good blood return, all ports aspirated, flushed, capped and sterile dressing applied Post Procedure X-Ray: tip of catheter in good position Patient Tolerated Procedure: well Complications: none Course 2 Vital Signs: Vital signs: Vital Signs Temperature 98.9 F 07/04/24 12:25 Pulse Rate 108 H 07/04/24 13:00 Respiratory Rate 33 H 07/04/24 13:00 Blood Pressure 94/67 07/04/24 13:00 Pulse Oximetry 93 07/04/24 12:26 Oxygen Delivery Me thod Room Air 07/04/24 12:21 MDM - Nausea/Vomiting/Diarrhea Medical Decision Making Acute kidney injury and nonischemic cardiomyopathy and congestive heart failure. Patient has not had any urine output yet his blood pressure has improved with dopamine and Levophed. His systolic pressure is now at or above 100 we still have not had any urine output. We are cautiously rehydrating. I do think he will need a fair amount of fluid however because of his ejection fraction and very cautious about the amount given. Repeat echo at the bedside appears to be he has a EF around 25 to 30% cardiology is still reading. Will admit to the ICU consult nephrology and cardiology have discussed with Dr. Langley orders have been written. Medical Records I reviewed the patient's medical records. 04/19/21 Echo CONCLUSIONS This is a limited echocardiogram performed to assess LV systolic function. LV is moderately dilated. LV systolic function is severely reduced with EF of 10 to 15%. Severe global hypokinesis is seen. Compared to prior echocardiogram from 03/30/2021, no significant changes are seen. 03/30/21 Echo CONCLUSIONS 1. Dilated left ventricle. Severely decreased left ventricular systolic function. Left ventricular ejection fraction is estimated at 20 %. Severe global hypokinesis. Abnormal diastolic function. 2. Normal right ventricular size and systolic function. 3. Mild biatrial enlargement. 4. Mild to moderate mitral valve regurgitation. 5. At least moderate tricuspid valve regurgitation. 6. Right atrial pressure estimated at 15 mmHg. 7. Moderate pulmonary hypertension with pulmonary pressure estimated at 46 mmHg. 8. No prior similar studies to compare. 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 No disease noted in the Left Main, Left Anterior Descending, Right, or Circumflex coronary arteries. 2. The apex, anterior, inferior, mid posterior ferreira are hypokinetic. 3. Severe left ventricular systolic dysfunction. Ejection fraction of 15%. Recommendations * Continue current medical management and risk factor modification. 03/30/21 Venous duplex IMPRESSION: 1. Focal partially occlusive superficial clot within the right cephalic vein just above the elbow. 2. No evidence of right upper extremity DVT. Lab Data I reviewed the patient's lab results. 07/04/24 08:20 07/04/24 08:20 Radiology Impressions Chest X-Ray 07/04/24 10:00 IMPRESSION: 1. Satisfactory placement RIGHT IJ line with no complications. 2. Diffuse scattered pulmonary opacifications. Most consistent with pulmonary edema. 3. Marked cardiomegaly. Gallbladder Ultrasound 07/04/24 12:36 IMPRESSION: 1. Cholelithiasis without evidence for acute cholecystitis. 2. Hepatomegaly. No intrahepatic bile duct dilatation. Laboratory Results WBC 13.00 10^3/uL (3.29-11.43) H 07/04/24 08:20 RBC 5.75 10^6/uL (3.85-5.65) H 07/04/24 08:20 Hgb 15.30 g/dL (11.27-16.99) 07/04/24 08:20 Hct 48.0 % (37-53) 07/04/24 08:20 MCV 83.5 fl (82-101) 07/04/24 08:20 MCH 26.6 pg (27-33) L 07/04/24 08:20 MCHC 31.9 g/dL (30-55) 07/04/24 08:20 RDW 15.1 % (12.1-15.1) 07/04/24 08:20 Plt Count 190 10^3/cmm (157-399) 07/04/24 08:20 MPV 11.5 fL (7.4-10.4) H 07/04/24 08:20 Neut % (Auto) 90.9 % 07/04/24 08:20 Lymph % (Auto) 1.7 % 07/04/24 08:20 [place] % (Auto) 2.9 % 07/04/24 08:20 Eos % (Auto) 2.3 % 07/04/24 08:20 Baso % (Auto) 0.9 % 07/04/24 08:20 Neut # (Auto) 11.81 10^3/uL (1.8-7.7) H 07/04/24 08:20 Lymph # (Auto) 0.2 10^3/uL (0.8-4.8) L 07/04/24 08:20 [place] # (Auto) 0.4 10^3/uL (0.2-0.9) 07/04/24 08:20 Eos # (Auto) 0.3 10^3/uL (0.0-0.8) 07/04/24 08:20 Baso # (Auto) 0.1 10^3/uL (0.0-0.1) 07/04/24 08:20 Nucleated RBC % (auto) 0.2 % 07/04/24 08:20 Nucleated RBCs # 0.0 /100WBC 07/04/24 08:20 Specimen Type Arterial 07/04/24 08:48 Sample Site Radial, left 07/04/24 08:48 ABG pH 7.34 (7.35-7.45) L 07/04/24 08:48 ABG pCO2 26.6 mmHg (35-45) L 07/04/24 08:48 ABG pO2 103.0 mmHg (80.0-100.0) H 07/04/24 08:48 ABG PO2/FiO2 Ratio 490 07/04/24 08:48 ABG HCO3 14.2 mmol/L (22-26) L 07/04/24 08:48 ABG O2 Saturation 98.1 07/04/24 08:48 ABG Base Excess -9.8 mmol/L (-2.0-2.0) L 07/04/24 08:48 August Test Pos 07/04/24 08:48 A-a O2 Gradient 1.9 mmHg (5-10) L 07/04/24 08:48 Hematocrit 45.6 % (42-52) 07/04/24 08:48 Hgb O2 Saturation 95.9 % (95-100) 07/04/24 08:48 Carboxyhemoglobin 1.3 %THgb (0.4-20.1) 07/04/24 08:48 Methemoglobin 1.0 % (0.4-1.5) 07/04/24 08:48 Total Hemoglobin 14.9 g/dL (14-18) 07/04/24 08:48 Sodium 133.0 mmol/L (131-143) 07/04/24 08:48 Potassium 4.2 mmol/L (3.5-5.0) 07/04/24 08:48 Glucose 98.0 mg/dL (70-115) 07/04/24 08:48 Ionized Calcium 1.1 mmol/L (1.1-1.4) 07/04/24 08:48 O2 Delivery Device Room air 07/04/24 08:48 FiO2 21.0 % 07/04/24 08:48 Mails Supervisor ID [place] 07/04/24 08:48 Sodium 135 mmol/L (136-145) L 07/04/24 08:20 Potassium 4.6 mmol/L (3.5-5.1) 07/04/24 08:20 Chloride 93 mmol/L (98-107) L 07/04/24 08:20 Carbon Dioxide 17 mmol/L (22-29) L 07/04/24 08:20 Anion Gap 29.6 (5-19) H 07/04/24 08:20 BUN 102 mg/dL (6-20) H* D 07/04/24 08:20 Creatinine 8.5 mg/dL (0.7-1.2) H* 07/04/24 08:20 GFR Calculation 7.1 mL/min (90-130) L 07/04/24 08:20 Glucose 98 mg/dL (65-115) 07/04/24 08:20 Calculated Osmolality 312 mOsm/kg (285-295) H 07/04/24 08:20 Lactic Acid 3.3 mmol/L (0.5-2.2) H 07/04/24 08:20 Lactic Acid (Sepsis) 2.8 mmol/L (0.5-2.2) H 07/04/24 10:41 Calcium 8.8 mg/dL (8.5-10.5) 07/04/24 08:20 Magnesium 1.6 mg/dL (1.7-2.3) L 07/04/24 08:20 Total Bilirubin 2.4 mg/dL (0.15-1.2) H 07/04/24 08:20 AST 26 U/L (0-40) 07/04/24 08:20 ALT 33 U/L (0-41) 07/04/24 08:20 Alkaline Phosphatase 143 U/L (40-130) H 07/04/24 08:20 Creatine Kinase 415 U/L (39-308) H* 07/04/24 08:20 Troponin T Baseline 163 ng/L (0-15) H* 07/04/24 08:20 Troponin T 120 Minute 147.5 ng/L (0-15) H 07/04/24 10:41 Delta Troponin T -15.5 ABS# (0-10) L 07/04/24 10:41 NT-Pro-B Natriuret Pep 74558 pg/mL (0-125) H 07/04/24 08:20 Total Protein 6.7 g/dL (6.6-8.7) 07/04/24 08:20 Albumin 3.0 g/dL (3.5-5.2) L 07/04/24 08:20 Globulin 3.7 g/dL (1.3-4.6) 07/04/24 08:20 Lipase 26 U/L (13-60) 07/04/24 08:20 Serum Ketones Negative (Negative) 07/04/24 08:20 Coronavirus (PCR) Negative (Negative) 07/04/24 08:48 Influenza A (PCR) Negative (Negative) 07/04/24 08:48 Influenza Type B (PCR) Negative (Negative) 07/04/24 08:48 RSV (PCR) Negative (Negative) 07/04/24 08:48 All radiology interpretation(s) finalized by discharge Critical Care Time 2 Critical Care Time: Critical Care Time: Yes Total Critical Care Time: 40 Attestation: The high probability of a clinically significant, sudden or life threatening deterioration of the patient's hematologic cardiology endocrine system(s) required my full and direct attention, intervention and personal management. The critical care time is as shown. This time is in addition to time spent performing any reported procedures but includes the following: [x] Data and vital sign review and interpretation [x] Patient assessment, examination and intervention [x] Documentation [x] Medication orders and management Discharge Plan Discharge Patient Disposition: Admitted As Inpatient Admit Provider: Keegan Lewis Clinical Impression: Acute kidney injury, Non-ischemic cardiomyopathy CHF exacerbation Qualifiers: Heart failure type: systolic Qualified Code(s): I50.23 - Acute on chronic systolic (congestive) heart failure Condition: Stable Coding Level of Care Code ED Spring Bender for Baljinder Reyna
[2024-07-04] MEDS: sodium chloride 0.9% 1,000 ML 999 ML IV (08:30)
[2024-07-04 08:32] LABS: Basophils # 0.1 10^3/uL (0.0-0.1); Basophils % 0.9 %; Eosinophils # 0.3 10^3/uL (0.0-0.8); Eosinophils % 2.3 %; Lymphocytes # 0.2 10^3/uL (0.8-4.8); Lymphocytes % 1.7 %; Mean Corpuscular HGB Conc 31.9 g/dL (30-55); Mean Corpuscular Hemoglobin 26.6 pg (27-33); Mean Corpuscular Volume 83.5 fl (82-101); Mean Platelet Volume 11.5 fL (7.4-10.4); Monocytes # 0.4 10^3/uL (0.2-0.9); Monocytes % 2.9 %; Neutrophils # 11.81 10^3/uL (1.8-7.7); Neutrophils % 90.9 %; Nucleated Red Blood Cells % 0.2 %; Platelet Count 190 10^3/cmm (157-399); Red Blood Count 5.75 10^6/uL (3.85-5.65); Red Cell Distribution Width 15.1 % (12.1-15.1)
[2024-07-04] MEDS: norepinephrine 4 MG/250 ML BAG 30 MG IV (08:41)
[2024-07-04] MEDS: ondansetron 2 mg/ML SDV 2 mL 4 MG IVP (08:41)
[2024-07-04 08:48] LABS: Ketone (Acetest) Serum Negative (Negative)
--- NOTE | 2024-07-04 08:48 | USCV_ITS ---
LanaalpeshDmitry Age: 39 Gender: M : 1985 Exam Date: 07/04/2024 09:41 Ordering Phys: Lei Campbell DO Technologist: [place] [facility] [place] hf BP: 71 / 48 HR: 90 Rhythm: Sinus Technical Quality: Adequate MEASUREMENTS (Male / Female) Normal Values 2D ECHO LVOT Diameter 2.0 cm LV Ejection Fraction MOD 4C 28.8 % LV Ejection Fraction MOD 2C 12.4 % LV Ejection Fraction 2C AL 12.8 % LA Diameter 5.0 cm RA Systolic Volume 4C AL 125.5 ml RA Systolic Volume 4C MOD 117.9 ml LA Sys Volume AL 88.4 cm cubed LA Sys Volume Index AL 31.4 cm cubed/m squared Aorta at Sinotubular Diameter 2.2 cm IVC Diameter 2.2 cm M-MODE LA Ao Ratio MM 2.0 AV Cusp Separation MM 1.8 cm DOPPLER AV Peak Velocity 134.0 cm/s LVOT Peak Velocity 138.0 cm/s AV Area Cont Eq vti 4.2 cm squared AV Area Cont Eq pk 3.3 cm squared MV Peak Velocity 116.0 cm/s MV Area PHT 5.6 cm squared Mitral E to A Ratio 2.8 TR Peak Velocity 282.5 cm/s TR Peak Gradient 31.9 mmHg TR Mean Velocity 203.0 cm/s TR Mean Gradient 19.4 mmHg TR Velocity Time Integral 70.4 cm TV Peak E Velocity 56.0 cm/s PV Peak Velocity 80.5 cm/s FINDINGS Left Ventricle Left ventricle is dilated. LV systolic function is severely reduced with EF 15 to 20%. Severe global hypokinesis. Right Ventricle Normal in size and function Right Atrium Normal in size Left Atrium Normal in size Mitral Valve Structurally normal mitral valve. Mild to moderate mitral regurgitation. Aortic Valve Structurally normal aortic valve. No significant stenosis or regurgitation. Tricuspid Valve Mild tricuspid regurgitation. RVSP is normal. Pulmonic Valve Grossly normal Pericardium Normal Aorta Normal in size IVC Appears to be normal CONCLUSIONS Left ventricle is dilated LV systolic function is severely reduced with EF of 15-20% Mild to moderate mitral regurgitation Mild tricuspid regurgitation John Cornejo MD (Electronically Signed) Final Date: 04 July 2024 17:20 S
[2024-07-04 08:53] LABS: Lactic Sepsis W/Reflex 3.3 mmol/L (0.5-2.2)
[2024-07-04 08:59] LABS: Alanine Aminotransferase 33 U/L (0-41); Alkaline Phosphatase 143 U/L (40-130); Anion Gap 29.6 (5-19); Aspartate Amino Transferase 26 U/L (0-40); Calcium 8.8 mg/dL (8.5-10.5); Carbon Dioxide 17 mmol/L (22-29); Chloride 93 mmol/L (98-107); Creatinine Clr Calc Pharmacy 17.6807; Globulin 3.7 g/dL (1.3-4.6); Glomerular Filtration Rate 7.1 mL/min (90-130); Glucose 98 mg/dL (65-115); Lipase 26 U/L (13-60); Magnesium 1.6 mg/dL (1.7-2.3); Osmolality Calculated 312 mOsm/kg (285-295); Potassium 4.6 mmol/L (3.5-5.1); Sodium 135 mmol/L (136-145); Total Bilirubin 2.4 mg/dL (0.15-1.2); Total Protein 6.7 g/dL (6.6-8.7)
[2024-07-04 08:59] LABS: ABG PCO2 26.6 mmHg (35-45); ABG PH Result 7.34 (7.35-7.45); Alveolar-Arterial Oxygen Gradi 1.9 mmHg (5-10); Arterial Blood Gas Hematocrit 45.6 % (42-52); Base Excess ABG -9.8 mmol/L (-2.0-2.0); Blood Gas Allen Test Pos; Blood Gas Operator Identificat WALCI; Blood Gas Sample Site Radial, left; Blood Gas Sample Type Arterial; Carboxyhemoglobin 1.3 %THgb (0.4-20.1); HCO3 ABG 14.2 mmol/L (22-26); HGB O2 Sat 95.9 % (95-100); Ionized Calcium Level - ABG 1.1 mmol/L (1.1-1.4); Oxygen Device ROOM AIR; Oxygen Saturation ABG 98.1; PO2 FiO2 Ratio Arterial Blood 490; Potassium Level - ABG 4.2 mmol/L (3.5-5.0); Total Hemoglobin 14.9 g/dL (14-18)
[2024-07-04 09:03] LABS: Troponin(5th) Baseline 163 ng/L (0-15)
[2024-07-04 09:04] LABS: Blood Urea Nitrogen 102 mg/dL (6-20); Creatine Phosphokinase 415 U/L (39-308)
--- NOTE | 2024-07-04 09:14 | XR_ITS ---
WS: [id number] PORTABLE CHEST HISTORY: CHF COMPARISON: 09/10/2022 Lordotic positioning resulting in distortion of the central structures. Breathing motion artifact. Mild hazy attenuation over both lungs may be related to breathing motion a rtifact. No pleural effusion or pneumothorax. Cardiac size: Enlarged and progressed since 09/10/2022. In part the increased cardiac silhouette may b e related to the lordotic position of the patient. Mediastinum/Aorta: Normal mediastinum. No osseous abnormality seen. XR/XR chest 1V portable [id number] IMPRESSION: 1. Cardiomegaly, probably exacerbated by lordotic positioning of the patient. 2. Mild hazy attenuation throughout both lungs is probably related to small am ount of edema.
[2024-07-04 09:19] LABS: NT Pro B Type Natriuretic Pept 33663 pg/mL (0-125)
[2024-07-04 09:20] LABS: Slide Review Slide Review Perform
--- NOTE | 2024-07-04 09:25 | PC.PHAR ---
states pt is instructed to take double dose on Furosemide 40mg, Lisinopril-hctz 10-12.5, and spironolactone 25 if retaining fluid. Pt has done that recently.
[2024-07-04 09:46] LABS: Covid PCR NEGATIVE (Negative); Influenza A NEGATIVE (Negative); Influenza B NEGATIVE (Negative); Respiratory Syncytial Virus Ce NEGATIVE (Negative)
[2024-07-04] MEDS: DOPamine drip 400 MG/250 ML PREMIX 28.07 MG IV (09:47)
--- NOTE | 2024-07-04 10:00 | XR_ITS ---
WS: [id number] PORTABLE CHEST HISTORY: CENTRAL LINE COMPARISON: 07/04/2024 RIGHT central line has been placed with tip at the caval atrial junction. Diffuse bilateral scattered opacifications most likely from edema. No area of dense consolidation. No pleural effusion or pneumothorax. Cardiac size: Marked enlarged heart. Mediastinum/Aorta: Normal mediastinum. No osseous abnormality seen. XR/XR chest 1V portable [id number] IMPRESSION: 1. Satisfactory placement RIGHT IJ line with no complications. 2. Diffuse scattered pulmonary opacifications. Most consistent with pulmonary edema. 3. Marked cardiomegaly.
[2024-07-04 10:14] LABS: Reflex Lactate Order REFLEX LACTIC ORDERD
--- NOTE | 2024-07-04 10:23 | ECG_ITS ---
[facility]: 2024-07[facility]04 Pat Name: Dmitry Linares Department: Room: Gender: Male Controls Technician: : 1985 Requested By: Lei Ma Order Number: [id number] Luciano MD: John Cornejo M.D. Measurements Intervals [place] Rate: 101 P: 69 UT: 161 QRS: -19 QRSD: 97 T: 120 QT: 326 QTc: 424 Interpretive Statements SINUS TACHYCARDIA WITH FREQUENT VENTRICULAR PREMATURE COMPLEXES POSSIBLE RIGHT VENTRICULAR CONDUCTION DELAY [RSR (QR) IN V1/V2] LEFT VENTRICULAR HYPERTROPHY AND ST-T CHANGE [VOLTAGE CRITERIA PLUS ST/T ABNORMALITY] Compared to ECG 07/04/2024 08:09:57 Ventricular premature complex(es) now present Sinus rhythm no longer present ST (T wave) deviation still present Electronically Signed On 07-08-2024 23:37:36 DIESEL CRANE OPERATOR by John Cornejo M.D. [id number]
--- NOTE | 2024-07-04 10:31 | DCPLANNER ---
requested Medical records from [place] department 0f corrections- Spoke to [place]-Sent email to - [place] north PH# [phone].
[2024-07-04 11:13] LABS: Lactic Acid level (Lactate) 2.8 mmol/L (0.5-2.2)
[2024-07-04 11:18] LABS: Troponin 5 2HR 147.5 ng/L (0-15); Troponin 5 2HR Delta -15.5 ABS# (0-10)
--- NOTE | 2024-07-04 12:25 | USCV_ITS ---
Dmitry Linares Age: 39 Gender: M : 1985 Exam Date: 07/04/2024 13:08 Ordering Phys: Keegan Lewis MD Technologist: CT Exam Location: [facility] [place] Indication: swelling,cellulitis PROCEDURES: Venous duplex imaging was performed in only the left lower extremity. In addition, the posterior tibial and peroneal trunk were evaluated. On the left side, the common femoral, superficial femoral, profunda femoral, popliteal, posterior tibial, greater saphenous veins, and the peroneal trunk were identified and interrogated in the standard fashion. FINDINGS: Normal 2-D Doppler and augmentation and compressibility throughout the lower extremity venous structures. Additional imaging through the proximal calf veins also reveals no thrombus. Limited evaluation of the greater saphenous vein is patent with no thrombus. Benign lymph nodes. CONCLUSIONS No DVT left lower extremity. Dr. Laurel Gonsalves DO (Electronically Signed) Final Date: 04 July 2024 14:33 S
--- NOTE | 2024-07-04 12:27 | PM.HP ---
Providers/Chief Complaint Admitting Physician: Keegan Lewis Primary Care Provider: Mariaa Johnston NP Chief Complaint: NVD History of Present Illness Pleasant 39-year-old gentleman with history of nonischemic cardiomyopathy, previously EF as low as 20% on echocardiogram 03/30/2021 with severe global hypokinesis, mild to moderate mitral regurgitation, moderate pulm hypertension, moderate TVR, no significant blockages found on coronary angiogram. More recently echo was reported to have shown improved ejection fraction up to 38% and was following up with cardiology at a correctional facility and [facility]. He developed fever 103 Fahrenheit on Wednesday, malaise, with bloating, abdominal distention, diarrhea. He initially reportedly doubled the dose of Lasix, lisinopril-HCTZ, spironolactone with swelling, weeping out of the left lower extremity. He states legs are usually about equally swollen, but right lower extremity has been less affected. He sustained a fall with bruising to left side abdomen and broken the toenail of his right big toe. Review of Systems Const: Reports: fever(s) and malaise ENMT: Denies: throat pain Card: Denies: chest pain, edema, pre-syncope or dyspnea on exertion Resp: Denies: dyspnea, productive cough, change in phlegm color or hemoptysis GI: Reports: diarrhea; Denies: abdominal pain, nausea, vomiting, constipation, hematochezia or melena : Denies: flank pain, difficulty urinating, urinary frequency or hematuria Musc: Denies: back pain, joint swelling or joint redness Skin/Breast: Reports: new lesions; Denies: rash Neuro: Denies: headache(s) Medications/Allergies Home Medications Medication Instructions Recorded Confirmed Last Taken Type metoprolol succinate 100 mg 100 mg PO DAILY #30 tabs 04/11/24 07/04/24 07/04/24 Rx tablet,extended release 24 hr spironolactone 25 mg tablet 25 mg PO DAILY #90 tabs 04/11/24 07/04/24 07/04/24 Rx atorvastatin 10 mg tablet 10 mg PO DAILY #30 tabs 05/17/24 07/04/24 07/04/24 Rx furosemide 40 mg tablet 40 mg PO DAILY #90 tabs 05/17/24 07/04/24 07/04/24 Rx lisinopril 10 1 tab PO DAILY #90 tabs 05/17/24 07/04/24 07/04/24 Rx mg-hydrochlorothiazide 12.5 mg tablet Allergies Allergy/AdvReac Type Severity Reaction Status Date / Time No Known Allergies Allergy Verified 07/04/24 08:08 PFSH Acute PFSH: Medical History Obesity CHF exacerbation ROCHELLE (obstructive sleep apnea) Non-ischemic cardiomyopathy Normal coronary angiogram Upper leg DVT (deep venous thromboembolism), acute Second hand smoke exposure Cardiomyopathy CHF (congestive heart failure), NYHA class III Surgical History History of cardiac cath No pertinent past surgical history Family History Father Congestive heart failure (CHF) Other CAD (coronary artery disease) Social History Smoking and tobacco/nicotine status: never used tobacco/nicotine Second hand smoke exposure: No Alcohol intake: former Substance/Drug Use: never Vitals/I&O/Wt Last Vital Signs Temp 98.3 F 07/04/24 08:08 Pulse 108 H 07/04/24 12:26 Resp 50 H 07/04/24 11:45 BP 81/54 07/04/24 12:26 Pulse Ox 93 07/04/24 12:26 07/03/24 07/04/24 07/04/24 22:59 06:59 14:59 Intake Total 0 / 0 Balance 0 / 0 Weight last 48 hrs Weight 149.685 kg Physical Exam Const: COMMON NORMALS: patient oriented x3 and alert GENERAL APPEARANCE: cooperative ORIENTATION/CONSCIOUSNESS: Yes awake HENMT: COMMON NORMALS: oropharynx normal Neck/C-Spine: COMMON NORMALS: no JVD Resp: COMMON NORMALS: normal respiratory effort and clear to auscultation bilaterally AUSCULTATION: clear to auscultation bilaterally Cardio: COMMON NORMALS: no JVD, regular rhythm, S1 normal heart sound present, S2 normal heart sound present and No murmurs present (Cardio) RATE: tachycardic RHYTHM: regular rhythm HEART SOUNDS: S1 normal heart sound present and S2 normal heart sound present GI: COMMON NORMALS: Normal to inspection, nondistended, normoactive bowel sounds present, Soft to palpation and non-tender PALPATION: Yes Soft to palpation Extremity: COMMON NORMALS: no joint enlargement GENERAL: Yes edema (3+ LLE) Neuro: COMMON NORMALS: patient oriented x3 and moves all extremities SENSORIUM/ORIENTATION: Yes alert Skin: COMMON NORMALS: no rashes or lesions noted NARRATIVE SKIN EXAM: Shallow ulcers in homero st healing on BLLE. LLE few have some ser drainage. GENERAL SKIN EXAM: no rashes or lesions noted Urinary Catheter Management: Smith: Cath Placed During This Visit: yes Urinary Catheter Date of Insertion: 07/04/24 Urinary Catheter Time of Insertion: 09:13 Data 07/04/24 08:20 07/04/24 08:20 Micro: Microbiology 07/04/24 08:28 Blood Culture - Preliminary Blood SPECIMEN COLLECTED 07/04/24 08:44 Blood Culture - Preliminary Blood SPECIMEN COLLECTED A&P Assessment and plan (1) Shock: Hypotension presentation, blood pressure 66/39, after having diarrhea since Wednesday night. Also continue taking furosemide, lisinopril-HCTZ, metoprolol, spironolactone. Reportedly also increased the doses of lisinopril-HCTZ, spironolactone, furosemide. Presentation with dehydration, acute renal failure, CK4 115, 3 started on pressor with Levophed, dopamine. With sinus tachycardia. Leukocytosis of 13. So far states diarrhea has let up and no further fevers. His is now starting to get sick herself. Viral studies done in ER coronavirus, influenza, RSV negative. Lactic acid 3.3. Sodium 135, anion gap 29.6, bicarb 17. BUN 102, creatinine 8.5. So far anuric, minimal urine output. UA obtained. NT proBNP 33,663. Reports left lower extremity edema. Usually swollen roughly clear bilaterally, but right leg is much better. Troponin also with elevation up to 163. 2-hour troponin 147.5. He denies chest pain or pressure. Initially with some shortness of breath on presentation, but now it is doing better with some improvement blood pressure with pressors. Chest x-ray with mild his admission throughout both lungs, probably related to small amount of edema. EKG obtained, on my interpretation LVH, lateral T wave inversion laterally in precordial leads. Pending official read. Reviewed ER provider note. Discussed with ER provider. Admitted to ICU. Continue hemodynamic support, continue Levophed, dobutamine stopped for now with sinus tachycardia. TTE obtained, pending read. Per verbal report by ER physician EF roughly around 30%. (2) Acute kidney injury: Acute oliguric/anuric renal failure with shock. Diarrhea since Wednesday. Continue to take Lasix, lisinopril-HCTZ, spironolactone and increased doses due to leg edema and weeping. Also on metoprolol. Produce only tiny amounts of few mL of urine since being in hospital, UA collected BUN 102, creatinine 8.5, anion gap 29.6, bicarb 17. Per ecommerce analyst started on bicarb drip, requested. Potassium 4.6, chloride 93, sodium 135. Magnesium 1.6. Calcium 8.8. Replace hypomagnesemia. Recheck magnesium. Pending additional nephrology assessment for consideration of need for dialysis as discussed with patient. Monitor intake and output. Monitor for risk of fluid overload. Hold lisinopril-HCTZ, spironolactone, furosemide, for now hold metoprolol as well with hypotension/shock. (3) CHF (congestive heart failure), NYHA class III: History of nonischemic cardiomyopathy, EF down as low as 20%, with subsequent improvement up to about 38% reportedly within the last year. Limited TTE has been requested and pending. Left lower extremity is edematous and with few open shallow ulcerations with some serous fluid weeping, her, right lower extremity usually is edematous to the same level but is down. Assess left lower extremity with venous duplex to assess for any DVT. Reviewed cardiology note. Qualifiers: Congestive heart failure type: unspecified Qualified Code(s): I50.9 - Heart failure, unspecified (4) Hypomagnesemia: Requested replacement 1 g magnesium IV. Recheck level. Monitor telemetry with risk of arrhythmia. (5) Cholestasis: Cholestasis, T. bili noted elevated up to 2.4, alk phos 143. AST, ALT normal. Possibly secondary to dehydration. History of cholelithiasis. Assess right upper quadrant ultrasound. Follow-up CMP. Plan Rhabdomyolysis: Mild rhabdomyolysis, CK up to 415. Hold statin for now. Gentle rehydration as above. Reassess CK. Nonischemic cardiomyopathy without significant obstructive disease on angiogram back in 2020. Obesity Attestations Medical Necessity Statement*: Admission over 2 midnights anticipated for assessment and management of shock, acute renal failure, and gentleman with underlying severe nonischemic cardiomyopathy. Coding Level of Care Code Critical Care >/= 30 minutes Critical care time (in minutes): 40 The high probability of a clinically significant, sudden or life threatening deterioration, as referenced in this documentation, required my full and direct attention, intervention and personal management. The critical care time shown is in addition to time spent performing any reported separately billable procedures and includes the following: [x] Data and vital sign review and interpretation [x] Patient assessment, examination and intervention [x] Medication orders and management [x] Patient/Family updates as able [x] Care Coordination and Documentation. Diagnoses Shock R57.9 Acute kidney injury N17.9 Congestive heart failure, NYHA class 3, unspecified congestive heart failure type I50.9 Congestive heart failure type: unspecified Hypomagnesemia E83.42 Cholestasis K83.1
--- NOTE | 2024-07-04 12:36 | US_ITS ---
WS: [id number] RIGHT UPPER QUADRANT ULTRASOUND HISTORY: elev tbili, AP COMPARISON: None available. Liver: 22.1 cm in length. Mildly enlarged liver. No intrahepatic mass or bile duct dilatation. Portal Vein: Normal hepatopetal flow with monophasic waveform. Gallbladder: Normally distended gallbladder with stones. No pericholecystic fluid. No wall thickening . CBD: 0.4 cm Pancreas: Obscured by bowel gas. Right kidney: 13.3 cm in length. Normal size and echogenicity. No hydronephrosis or mass. Aorta and IVC: Unremarkable abdominal aorta and IVC. No ascites. US/US gall bladder 78240 IMPRESSION: 1. Cholelithiasis without evidence for acute cholecystitis. 2. Hepatomegaly. No intrahepatic bile duct dilatation.
--- NOTE | 2024-07-04 12:49 | P.CONIM_ITS ---
<Statement entered by John Cornejo M.D - 07/04/24 20:24> Patient was evaluated and cared for in conjunction with an advanced practice practitioner. I personally examined the patient and reviewed the chart and all pertinent data including imaging, telemetry, and laboratory results. I discussed the patient in detail with the advanced practice practitioner. Please see their note for consult note, results and agreed upon plan of care for the patient. Patient has presented with septic shock, UTI. Has known HFrEF and non ischemic cardiomyopathy with known EF of 15-20%. Current echo shows similar EF. Troponins are elevated but trended down. Patient on levophed and vasopressin. GENERAL: Patient is alert and oriented HEART: Regular S1 and S2 LUNGS: Clear to auscultation bilaterally. EXTREMITIES: Lower extremities with 2+ edema, left more than right ASSESSMENT AND PLAN Septic shock Non ischemic cardiomyopathy UTI Troponin elevation Acute kidney injury Patient's troponin elevation is secondary to demand ischemia. Patient is septic shock. Gentle hydration given LV dysfunction. EF is unchanged from before. Check lactic acid No acute ST T wave changes. Patient has sinus tachycardia Antibiotic therapy per primary team Continue levophed and vasopressin with goal MAP>65 Thank you for involving us with care of this patient. We will continue to follow. Please call with questions. Providers/Reason For Consult 2 Consulting Physician/Specialty*: Dr Cornejo, cardiology Reason for Consult*: Acute on chronic systolic CHF, NSTEMI Requesting Physician: Dr Campbell Attending Physician: Keegan Lewis Primary Care Provider: Mariaa Johnston NP History of Present Illness History of Present Illness Dmitry Linares is a 39 year old male with past medical history of systolic CHF (LVEF 10 to 15% in 2020, reported to have improved), nonischemic cardiomyopathy (last coronary angiogram 2020 showing no CAD), obstructive sleep apnea, history of DVT, obesity. He was incarcerated in [place] since his last visit with cardiology in 2022. He reports his LVEF improved to just below 40% recently, we are attempting to get records from the [facility] in [place]. Prior to admission he noted fever of 103 ?F and diarrhea for several days which led to a decrease in oral intake, which is also when he noticed the left lower extremity edema- he increased his diuretics to reduce swelling, ulcerations of the of the lower leg and weeping of the skin. During that time he reports he had no urine output. He currently has pain in the left lower leg. No chest pain currently or in the last few days, no shortness of breath at rest, denies orthopnea. Laboratory workup in the emergency room showed baseline troponin 163, 120 minute decreased to 147. BNP 33,663, lactic acid 3.3, CK 415, BUN 102, creatinine 8.5, potassium 4.6, WBC 13. When he saw his PCP in March, creatinine was 1.0. Home medications prior to admission were atorvastatin 10 mg daily, Lasix 40 mg daily, lisinopril/HCTZ 10/12.5 mg, metoprolol succinate 100 mg daily, spironolactone 25 mg daily. He was started on Levophed and dopamine in the emergency room, on arrival to the ICU heart rate was tachycardic so dopamine was discontinued. Blood pressures ranging in the 80s systolic, MAP 70's currently. He is now making a small amount of urine. Urine drug screen positive for amphetamines-confirmation study pending. Review of Systems 2 Const: Denies: fever(s), chills, change in weight, fatigue or diaphoresis Eyes: Denies: change in vision ENMT: Denies: epistaxis Card: Denies: chest pain, palpitations, irregular heart rhythm, edema, syncope, pre-syncope, dyspnea on exertion, orthopnea or leg pain with exertion Resp: Denies: dyspnea, productive cough or wheezing GI: Denies: nausea, vomiting, hematemesis, hematochezia or melena : Denies: hematuria Musc: Denies: extremity swelling Portillo/Lymph: Denies: easy bruising or easy bleeding Medications/Allergies Home Medications Medication Instructions Recorded Confirmed Last Taken Type metoprolol succinate 100 mg 100 mg PO DAILY #30 tabs 04/11/24 07/04/24 07/04/24 Rx tablet,extended release 24 hr spironolactone 25 mg tablet 25 mg PO DAILY #90 tabs 04/11/24 07/04/24 07/04/24 Rx atorvastatin 10 mg tablet 10 mg PO DAILY #30 tabs 05/17/24 07/04/24 07/04/24 Rx furosemide 40 mg tablet 40 mg PO DAILY #90 tabs 05/17/24 07/04/24 07/04/24 Rx lisinopril 10 1 tab PO DAILY #90 tabs 05/17/24 07/04/24 07/04/24 Rx mg-hydrochlorothiazide 12.5 mg tablet Allergies Allergy/AdvReac Type Severity Reaction Status Date / Time No Known Allergies Allergy Verified 07/04/24 08:08 Current Medications Generic Name Dose Route Start Last Admin Trade Name Heathq PRN Reason Stop Dose Admin Norepinephrine Bitartrate 4 mg in 250 mls @ 0 mls/hr 07/04/24 08:30 07/04/24 08:41 Levophed IV 8 mcg/min .Q0M STEPHAN 30 mls/hr Administration Protocol Per Protocol Dopamine HCl/Dextrose 400 mg in 250 mls @ 28.066 mls/hr 07/04/24 09:15 07/04/24 09:47 Intropin Drip IV 5 mcg/kg/min CONT STEPHAN 28.07 mls/hr Administration Protocol 5 MCG/KG/MIN PFSH Acute 2 PFSH: Medical History Obesity CHF exacerbation ROCHELLE (obstructive sleep apnea) Non-ischemic cardiomyopathy Normal coronary angiogram Upper leg DVT (deep venous thromboembolism), acute Second hand smoke exposure Cardiomyopathy CHF (congestive heart failure), NYHA class III Surgical History History of cardiac cath No pertinent past surgical history Family History Father Congestive heart failure (CHF) Other CAD (coronary artery disease) Social History Smoking and tobacco/nicotine status: never used tobacco/nicotine Second hand smoke exposure: No Alcohol intake: former Substance/Drug Use: never Vitals/I&O/Wt Last Vital Signs Temp 98.3 F 07/04/24 08:08 Pulse 108 H 07/04/24 12:26 Resp 50 H 07/04/24 11:45 BP 81/54 07/04/24 12:26 Pulse Ox 93 07/04/24 12:26 O2 Del Method Room Air 07/04/24 12:21 07/03/24 07/04/24 07/04/24 22:59 06:59 14:59 Intake Total 0 / 0 Balance 0 / 0 Weight last 48 hrs Weight 332 lb 14.368 oz Weight 330 lb Physical Exam 2 Const: COMMON NORMALS: no acute distress and patient oriented x3 GENERAL APPEARANCE: cooperative and comfortable ORIENTATION/CONSCIOUSNESS: Yes awake, Yes oriented to person, Yes oriented to place and Yes oriented to time Chest: COMMONS NORMALS: normal inspection of the chest and normal palpation of entire chest wall CHEST: Yes Symmetrical chest wall rise Resp: COMMON NORMALS: normal respiratory effort, No retractions and No use of accessory muscles EFFORT & INSPECTION: Yes symmetric chest movement A USCULTATION: crackles Laterality: bilateral, anterior and posterior Cardio: COMMON NORMALS: regular rhythm, S1 normal heart sound present, S2 normal heart sound present, No gallops present (Cardio), No clicks present (Cardio), No murmurs present (Cardio) and No rub (Cardio) RATE: tachycardic RHYTHM: regular rhythm HEART SOUNDS: S1 normal heart sound present and S2 normal heart sound present PERIPHERAL PULSES: radial pulses present Extremity: NARRATIVE EXTREMITY EXAM: Multiple ulcerations of the skin below the knee bilaterally No change in sensation, pulses palpable, skin near the ulcerations dusky/violaceous. GENERAL: Yes edema (2+ pitting edema bilat LE below knee) Neuro: COMMON NORMALS: patient oriented x3 and moves all extremities S ENSORIUM/ORIENTATION: Yes oriented to person, Yes oriented to place and Yes oriented to time Urinary Catheter Management: Smith: Cath Placed During This Visit: yes Urinary Catheter Date of Insertion: 07/04/24 Urinary Catheter Time of Insertion: 09:13 Data 07/04/24 08:20 07/04/24 08:20 Micro: Microbiology 07/04/24 08:28 Blood Culture - Preliminary Blood SPECIMEN COLLECTED 07/04/24 08:44 Blood Culture - Preliminary Blood SPECIMEN COLLECTED A&P Assessment and plan (1) CHF (congestive heart failure), NYHA class III: Plan is for gentle rehydration given history of systolic CHF as low as 10 to 15%, more recently 20-30%. Echocardiogram pending read. No coronary angiogram given no disease in 2020, as well he does not have chest pain. Continue Levophed. Further plan based on clinical progress. Qualifiers: Congestive heart failure type: unspecified Qualified Code(s): I50.9 - Heart failure, unspecified (2) Non-ischemic cardiomyopathy: (3) Shock: Consult Attestations 2 Medical Necessity Statement: Acute on chronic systolic heart failure, sepsis Coding Level of Care Code Acute Code for Chg Fwd Diagnoses Congestive heart failure, NYHA class 3, unspecified congestive heart failure type I50.9 Congestive heart failure type: unspecified Non-ischemic cardiomyopathy I42.8 Shock R57.9
[2024-07-04] MEDS: enoxaparin 30 mg/0.3 mL Syringe SUBCUT (12:51)
[2024-07-04] MEDS: pantoprazole 40 mg SDV IVP (12:52)
[2024-07-04] MEDS: sodium bicarbonate 150 MEQ in dextrose 5% 1,000 ML 50 MEQ IV (12:52)
[2024-07-04] MEDS: acetaminophen 325 mg Tablet 650 MG PO ×2 (12:52→17:01)
[2024-07-04 12:54] LABS: Amphetamines Screen Urine Positive (Negative)
[2024-07-04 12:55] LABS: Barbiturates Screen Urine Negative (Negative); Benzodiazepines Screen Urine Negative (Negative); Cocaine Screen Urine Negative (Negative); Opiate Screen Urine Negative (Negative); PCP Screen Urine Negative (Negative); THC Screen Urine Negative (Negative)
[2024-07-04 13:29] LABS: Add Urine Culture? Yes; Add Urine Microscopic? YES; Bacteria Urine Trace /hpf; Bilirubin Urine 2+ (Negative); Blood Urine 3+ (Negative); Glucose Urine UA Negative (Normal); Hyaline Casts Urine 336.45 /lpf; Ketones Urine Negative (Negative); Leukocyte Esterase Urine 2+ (Negative); Nitrate Urine Positive (Negative); Protein Urine 3+ (Negative); RBC Urine >100 /hpf (0-2); UA Slide Review UA Slide Review Perf; Urine Appearance Turbid (CLEAR); Urine Color Orange (Yellow); WBC Urine >100 /hpf (0-5)
--- NOTE | 2024-07-04 14:23 | ECG_ITS ---
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 Measurements Intervals [place] Rate: 129 P: 57 UT: 165 QRS: -30 QRSD: 98 T: 110 QT: 295 QTc: 432 Interpretive Statements SINUS TACHYCARDIA BORDERLINE LEFT AXIS DEVIATION [QRS AXIS < -20] POSSIBLE RIGHT VENTRICULAR CONDUCTION DELAY [RSR (QR) IN V1/V2] MODERATE VOLTAGE CRITERIA FOR LVH, CONSIDER NORMAL VARIANT [MEETS CRITERIA IN ONE OF: R(aVL), S(V1), R(V5), R(V5/V6)+S(V1)] MODERATE T-WAVE ABNORMALITY, CONSIDER LATERAL ISCHEMIA [-0.1+ mV T-WAVE IN I/aVL/V5/V6] Compared to ECG 07/04/2024 10:01:54 T-wave abnormality now present Possible ischemia now present Ventricular premature complex(es) no longer present ST (T wave) deviation no longer present Electronically Signed On 07-08-2024 23:36:29 YARN [employer]ER by John Cornejo M.D. [email or web address]
[2024-07-04] MEDS: norepinephrine 4 MG/250 ML BAG 45 MG IV (14:28)
[2024-07-04] MEDS: magnesium sulfate premix 1 GM/100 ML PIGGYBACK IV (15:00)
[2024-07-04] MEDS: albumin 25 G/100 ML BAG 60 G IV ×2 (15:00→17:00)
[2024-07-04] MEDS: vasopressin 40 UNIT/100 ML PREMIX IV (15:01)
[2024-07-04 15:04] LABS: Troponin 5 6HR 129.6 ng/L (0-15); Troponin 5 6HR Delta -33.4 ng/L (0-12)
[2024-07-04] MEDS: cefTRIAXone 1,000 mg SDV 1000 MG IVP (15:09)
--- NOTE | 2024-07-04 16:00 | PC.NURSE ---
Addendum entered by Armando Petty RN 07/05/24 15:06: Patient started on Vasopressin and need for levophed increased. Original Note: Physician contacted about patients condition being too unstable for CT scan of kidneys. Maximilian
--- NOTE | 2024-07-04 16:27 | ECG_ITS ---
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 Measurements Intervals [place] Rate: 126 P: 60 ME: 170 QRS: -27 QRSD: 101 T: 116 QT: 305 QTc: 442 Interpretive Statements SINUS TACHYCARDIA BORDERLINE LEFT AXIS DEVIATION [QRS AXIS < -20] POSSIBLE RIGHT VENTRICULAR CONDUCTION DELAY [RSR (QR) IN V1/V2] MODERATE VOLTAGE CRITERIA FOR LVH, CONSIDER NORMAL VARIANT [MEETS CRITERIA IN ONE OF: R(aVL), S(V1), R(V5), R(V5/V6)+S(V1)] MODERATE T-WAVE ABNORMALITY, CONSIDER LATERAL ISCHEMIA [-0.1+ mV T-WAVE IN I/aVL/V5/V6] Compared to ECG 07/04/2024 15:35:08 No significant changes Electronically Signed On 07-08-2024 23:18:14 ECONOMICS INSTRUCTOR by John Cornejo M.D. [email or web address]
[2024-07-04] MEDS: heparin drip 25,000 UNIT/500 ML PREMIX 42 UNIT IV (17:20)
[2024-07-04] MEDS: heparin 5,000 unit/mL INJ 1 mL IVP (17:20)
[2024-07-04] MEDS: piperacillin-tazobactam 3.375 GM in sodium chloride 0.9% (plus) 50 ML IV (17:34)
[2024-07-04] MEDS: hydrocortisone 100 mg/2 mL SDV IVP (17:34)
[2024-07-04] MEDS: linezolid premix 600 MG/300 ML PREMIX 300 MG IV (17:34)
[2024-07-04] MEDS: metroNIDAZOLE IV 500 MG/100 ML PREMIX 100 MG IV (17:51)
[2024-07-04] MEDS: vancomycin 125 mg Capsule 500 MG PO (17:51)
[2024-07-04 18:25] LABS: Anion Gap 27.6 (5-19); Calcium 8.4 mg/dL (8.5-10.5); Carbon Dioxide 16 mmol/L (22-29); Chloride 94 mmol/L (98-107); Creatinine Clr Calc Pharmacy 19.3639; Glomerular Filtration Rate 7.9 mL/min (90-130); Glucose 154 mg/dL (65-115); Osmolality Calculated 311 mOsm/kg (285-295); Potassium 4.6 mmol/L (3.5-5.1); Sodium 133 mmol/L (136-145)
[2024-07-04 18:29] LABS: Blood Urea Nitrogen 101 mg/dL (6-20)
[2024-07-04] MEDS: norepinephrine 4 MG/250 ML BAG 60 MG IV (18:48)
--- NOTE | 2024-07-04 19:59 | P.CONIM_ITS ---
Providers/Reason For Consult 2 Consulting Physician/Specialty*: KOMMANA/nEPHROLOGY Reason for Consult*: ZITA [place] Attending Physician: Keegan Lewis Primary Care Provider: Mariaa Johnston NP History of Present Illness History of Present Illness Dmitry Linares is a 39 year old male patient is a 39-year-old male with past medical history of nonischemic cardiomyopathy with ejection fraction of 30% on recent echocardiogram, moderate mitral regurg, moderate pulmonary hypertension presented to the emergency department due to generalized weakness and diarrhea. Also had a fever of 103 at home per patient. He was taking Lasix lisinopril HCTZ and spironolactone at home. On further evaluation in the emergency department his blood pressures with low on presentation systolic in the 80s and was tachycardic. Patient currently on dopamine and Levophed and is admitted to ICU. Lab data is significant for severe ANETTE with a creatinine of 8.5 and a BUN of 102, sodium 135 and bicarbonate level of 17. His creatinine was normal in March 2024. Patient denies any NSAID use. CK level was 115. . Review of Systems 2 Narrative: NEGATIVE Medications/Allergies Home Medications Medication Instructions Recorded Confirmed Last Taken Type metoprolol succinate 100 mg 100 mg PO DAILY #30 tabs 04/11/24 07/04/24 07/04/24 Rx tablet,extended release 24 hr spironolactone 25 mg tablet 25 mg PO DAILY #90 tabs 04/11/24 07/04/24 07/04/24 Rx atorvastatin 10 mg tablet 10 mg PO DAILY #30 tabs 05/17/24 07/04/24 07/04/24 Rx furosemide 40 mg tablet 40 mg PO DAILY #90 tabs 05/17/24 07/04/24 07/04/24 Rx lisinopril 10 1 tab PO DAILY #90 tabs 05/17/24 07/04/24 07/04/24 Rx mg-hydrochlorothiazide 12.5 mg tablet Allergies Allergy/AdvReac Type Severity Reaction Status Date / Time No Known Allergies Allergy Verified 07/04/24 08:08 Current Medications Generic Name Dose Route Start Last Admin Trade Name Freq PRN Reason Stop Dose Admin Acetaminophen 650 mg 07/04/24 12:27 07/04/24 17:01 Acetaminophen 325 Mg Tablet PO 650 mg Q4H PRN Administration Mild/Mod Pain Or Temp >/= 101 Enoxaparin Sodium 30 mg 07/04/24 12:30 07/04/24 12:51 Enoxaparin 30 Mg/0.3 Ml Syringe SUBCUT 30 mg Q24H STEPHAN Administration Hydrocortisone Sodium Succinate 100 mg 07/04/24 17:15 07/04/24 17:34 Hydrocortisone 100 Mg/2 Ml Sdv IVP 100 mg Q6H STEPHAN Administration Norepinephrine Bitartrate 4 mg in 250 mls @ 0 mls/hr 07/04/24 08:30 07/04/24 19:32 Levophed IV 18 mcg/min .Q0M STEPHAN 67.5 mls/hr Titration Protocol Per Protocol Dopamine HCl/Dextrose 400 mg in 250 mls @ 28.066 mls/hr 07/04/24 09:15 07/04/24 13:00 Intropin Drip IV 0 mcg/kg/min CONT STEPHAN 0 mls/hr Titration Protocol 5 MCG/KG/MIN Sodium Bicarbonate 150 meq/ 1,150 mls @ 50 mls/hr 07/04/24 12:15 07/04/24 12:52 Dextrose IV 50 mls/hr .Q23H STPEHAN Administration Vasopressin 40 unit in 100 mls @ 0 mls/hr 07/04/24 14:45 07/04/24 16:00 Vasostrict IV 0.03 unit/min .Q0M STEPHAN 4.5 mls/hr Titration Protocol Per Protocol Heparin Sodium/Sodium Chloride 25,000 unit in 500 mls @ 0 mls/hr 07/04/24 16:45 07/04/24 17:20 Heparin Drip IV 13.91 unit/kg/hr CONT STEPHAN 42 mls/hr Administration Protocol Per Protocol Piperacillin Sod/Tazobactam 50 mls @ 12.5 mls/hr 07/04/24 17:15 07/04/24 17:34 Sod 3.375 gm/ Sodium Chloride IV 12.5 mls/hr Q12H STEPHAN Administration Protocol Linezolid 600 mg in 300 mls @ 300 mls/hr 07/04/24 17:15 07/04/24 19:07 Zyvox Premix IV Infused Q12H STEPHAN Infusion Protocol Metronidazole 500 mg in 100 mls @ 100 mls/hr 07/04/24 17:30 07/04/24 19:07 Flagyl Iv IV Infused Q8H STEPHAN Infusion Protocol Pantoprazole Sodium 40 mg 07/04/24 12:30 07/04/24 12:52 Pantoprazole 40 Mg Sdv IVP 40 mg Q24H STEPHAN Administration Vancomycin HCl 500 mg 07/04/24 18:00 07/04/24 17:51 Vancomycin 125 Mg Capsule PO 500 mg Q6H STEPHAN Administration PFSH Acute 2 PFSH: Medical History Obesity CHF exacerbation ROCHELLE (obstructive sleep apnea) Non-ischemic cardiomyopathy Normal coronary angiogram Upper leg DVT (deep venous thromboembolism), acute Second hand smoke exposure Cardiomyopathy CHF (congestive heart failure), NYHA class III Surgical History History of cardiac cath No pertinent past surgical history Family History Father Congestive heart failure (CHF) Other CAD (coronary artery disease) Social History Smoking and tobacco/nicotine status: never used tobacco/nicotine Second hand smoke exposure: No Alcohol intake: former Substance/Drug Use: never Vitals/I&O/Wt Last Vital Signs Temp 98.5 F 07/04/24 16:00 Pulse 120 H 07/04/24 18:45 Resp 33 H 07/04/24 18:45 BP 101/62 07/04/24 18:45 Pulse Ox 93 07/04/24 12:26 O2 Del Method Room Air 07/04/24 12:21 07/04/24 07/04/24 07/04/24 06:59 14:59 22:59 Intake Total 219.792 / 526.603 4474.225 / 2216.017 Balance 219.792 / 705.164 15696.017 Weight last 48 hrs Weight 151 kg Weight 149.685 kg Physical Exam 2 Narrative: AWAKE , ALERT , NO DISTRESS , ON ROOM AIR PEERLA S1S2 RRR PER REPORT LUNGS CLEAR PER REPORT NO EDEMA Urinary Catheter Management: Smith: Cath Placed During This Visit: yes Reason for Continuing Indwelling Catheter: Accurate Measurement of Urinary Output in Critically Ill Patients Urinary Catheter Date of Insertion: 07/04/24 Urinary Catheter Time of Insertion: 09:13 Data 07/04/24 08:20 07/04/24 17:58 Micro: Microbiology 07/04/24 08:28 Blood Culture - Preliminary Blood SPECIMEN COLLECTED 07/04/24 08:44 Blood Culture - Preliminary Blood SPECIMEN COLLECTED A&P Assessment and plan (1) Acute kidney injury: Plan 1. Acute kidney injury: Likely prerenal due to poor p.o. intake and diarrhea, in addition recently increased to doses of lisinopril HCTZ and Lasix. -He is currently on pressors, Smith catheter placed, renal ultrasound pending, monitor renal function overnight on bicarbonate drip at 100 cc an hour,If no improvement will consider CRRT in AM . cautious IV fluids due to known low ejection fraction. Denies NSAID use. UA with hematuria and microscopic hematuria and possible UTI -Will check serologies, may consider renal biopsy in the future if no improvement. 2. Metabolic acidosis: In the setting of diarrhea, will add Bicitra and patient on bicarbonate drip 3. Cardiomyopathy with ejection fraction of 30%, cautious IV fluids, diuretics are on hold 4. Hypertension: Meds on hold 5. Shock: On pressors, likely sepsis, workup pending Patient evaluated using audiovisual cart. Time spent 40 minutes Consult Attestations 2 Medical Necessity Statement: PER NELLA Coding Level of Care Code Acute Code for [facility] Diagnoses Acute kidney injury N17.9
--- NOTE | 2024-07-04 20:23 | PC.NURSE ---
Addendum entered by Ana Umanzor RN 07/05/24 03:51: All orders entered by this RN were verbal orders from Dr. Rudolph who was on the unit and in the pts rooms frequently during this time. Verbal orders at bedside to deviate from IV drip protocols on Levophed, Vasopressin, Dopamine, Evan, Epi. Dr. Rudolph verbalized was dose she wants following listed medications running. See 'MAR' for medications given and drip titrations. Addendum entered by Ana Umanzor RN 07/05/24 03:47: [employer] arrived on unit @0100 and was disconnected from ICU monitor and placed on air teams monitor. Difficulty getting pt on helicopter, ground team called, pt left facility w/ ground team @0310. Ground team was sent w/ 2 bags levophed, 3- 10mg viles Evan, 3-100mg bags of NS. Addendum entered by Ana Umanzor RN 07/05/24 03:26: 07/04/242121: ART Line placed 2140: HR 200, BP 137/77, Amio 150mg IVP 2144: HR 200 BP 124/66 symptomatic (pale, diaphoretic, dizzy). Dr. Rudolph @bedside. 2146: Adenosine 6mg IVP 2147: HR 170, BP 106/57, Adenosine 12mg IVP 2148: HR 185, BP 99/54 2149: Amio 150mg IVP 2153: EKG 113 sinus tach, BP 64/39, 12L NR mask 2158: HR 109, BP 63/39, RR 31, SpO2 95% 12L NR, BG 162 2203: HR 107, BP 65/41 2211: HR 105, BP 65/40, RR 38, SpO2 100% 12L NR 2213: HR 103, BP 64/39 2222: HR 99, BP 77/47 07/05/24 0041: Intubated w/ positive color change, HR 128, BP 86/55 Addendum entered by Ana Umanzor RN 07/04/24 21:08: Spoke w/ Dr. Rudolph on phone @2100 concerning extremely low BP (78/48), HR 112. New order to restart dopamine. Original Note: Physician Communication: Reached out to Dr. Vences concerning low BP and difficultly obtaining blood pressers. Discussed ART line insertion w/ doctor at bedside @ approximately 2019. Pt is agreeable with this.
[2024-07-04 20:52] LABS: C.Diff PCR (Lab) NEGATIVE (Negative)
[2024-07-04 20:59] LABS: Chloride Urine Random 33 mmol/L
[2024-07-04 21:00] LABS: Urine Random Sodium 48 mmol/L
--- NOTE | 2024-07-04 21:45 | ECG_ITS ---
[facility]24[facility]04 Pat Name: Dmitry Linares Department: Room: ICU12 Gender: Male Master Yacht: : 1985 Requested By: Marlyn Rudolph Order Number: [id number] Luciano MD: John Cornejo M.D. Measurements Intervals [place] Rate: 179 P: 0 IN: 0 QRS: -29 QRSD: 104 T: 130 QT: 240 QTc: 414 Interpretive Statements ATRIAL FIBRILLATION WITH RAPID VENTRICULAR RESPONSE BORDERLINE LEFT AXIS DEVIATION [QRS AXIS < -20] POSSIBLE RIGHT VENTRICULAR CONDUCTION DELAY [RSR (QR) IN V1/V2] POSSIBLE LEFT VENTRICULAR HYPERTROPHY [VOLTAGE CRITERIA PLUS LAE OR QRS WIDENING] ST DEVIATION AND MODERATE T-WAVE ABNORMALITY, CONSIDER LATERAL ISCHEMIA [-0.1+ mV T-WAVE IN I/aVL/V5/V6] Compared to ECG 07/04/2024 16:27:02 Sinus tachycardia no longer present T-wave abnormality still present Possible ischemia still present Electronically Signed On 07-08-2024 23:16:24 RETAIL AND RESTAURANT ASSOCIATE by John Cornejo M.D. [id number]
--- NOTE | 2024-07-04 21:46 | ECG_ITS ---
[facility] Test Date: 2024-07-04 Pat Name: Dmitry Linares Department: Room: ICU12 Gender: Male Motor Vehicle Technician: : 1985 Requested By: Marlyn Rudolph Order Number: [id number] Luciano MD: John Cornejo M.D. Measurements Intervals [place] Rate: 109 P: 13 MT: 178 QRS: -32 QRSD: 127 T: 109 QT: 323 QTc: 435 Interpretive Statements SINUS TACHYCARDIA LEFT AXIS DEVIATION [QRS AXIS < -30] LEFT VENTRICULAR HYPERTROPHY AND ST-T CHANGE [VOLTAGE CRITERIA PLUS ST/T ABNORMALITY] Compared to ECG 07/04/2024 16:27:02 ST (T wave) deviation now present T-wave abnormality no longer present Possible ischemia no longer present Electronically Signed On 07-08-2024 23:16:09 SUPERVISORY EXAMINER by John Cornejo M.D. [id number]
[2024-07-04 21:55] LABS: ABG PCO2 30.3 mmHg (35-45); ABG PH Result 7.27 (7.35-7.45); Alveolar-Arterial Oxygen Gradi 7.2 mmHg (5-10); Arterial Blood Gas Hematocrit 45.5 % (42-52); Base Excess ABG -11.6 mmol/L (-2.0-2.0); Blood Gas Sample Site Radial, left; Blood Gas Sample Type Arterial; Carboxyhemoglobin 1.4 %THgb (0.4-20.1); HCO3 ABG 13.9 mmol/L (22-26); HGB O2 Sat 86.2 % (95-100); Methemoglobin 1.1 % (0.4-1.5); Oxygen Device ROOM AIR; Oxygen Saturation ABG 88.3; PO2 ABG 58.8 mmHg (80.0-100.0); Potassium Level - ABG 4.4 mmol/L (3.5-5.0); Total Hemoglobin 14.9 g/dL (14-18)
[2024-07-04] MEDS: norepinephrine 4 MG/250 ML BAG 75 MG IV (21:56)
[2024-07-04] MEDS: phenylephrine inj 25 MG in sodium chloride 0.9% 250 ML 60.6 MG IV (22:04)
[2024-07-04] MEDS: calcium gluconate 0.9% NaCL 1 GM/50 ML PREMIX IV ×2 (22:06→22:40)
[2024-07-04 22:15] LABS: Partial Thromboplastin Time 62.4 SECONDS (23.9-36.7)
--- NOTE | 2024-07-04 22:16 | XRR_ITS ---
PROCEDURE INFORMATION: Exam: XR Chest Exam date and time: 07/04/2024 10:25 PM Age: 39 years old Clinical indication: Other: Resp failure; Patient HX: PT very unstable got best image i could; Additional info: Hypoxic respiratory failure TECHNIQUE: Imaging protocol: Radiologic exam of the chest. Views: 1 view. COMPARISON: CR XR chest 1V portable [id number] 07/04/2024 10:45 AM FINDINGS: Lungs: Pulmonary vascular congestion. No overt infiltrate or edema. Right IJ line within the upper right atrium, unchanged. Pleural spaces: Unremarkable. No pleural effusion. No pneumothorax. Heart/Mediastinum: Cardiomegaly, unchanged. Bones/joints: Unremarkable. XR/XR chest 1V portable [id number] IMPRESSION: Pulmonary vascular congestion. No overt infiltrate or edema.
[2024-07-04 22:18] LABS: Lactate (Lactic Acid level) 3.6 mmol/L (0.5-2.2)
--- NOTE | 2024-07-04 22:53 | P.MISC_ITS ---
Miscellaneous Note Note: I was called early in the shift by the night nurse that there were concerns about the patient's BP. I called the Anesthesiologist, who kindly placed an arterial line. There was concern about the patient's respiratory status, so an ABG was ordered with the patient on RA. His ABG was 7.27/. Given concerns about the patient's BP Dopamine that was in the pixis was initiated per my orders. The patient went into SVT and required Amiodarone bolus 150mg x1, 6mg x 1, 12mg Adenosine x 1, and 150mg Amodarone bolus again w/ resolution of the SVT to sinus tachycardia. He was started on Phenylephrine and maxed to 200mcg/min. Levophed was on 20mcg/min and was uptitrated to 60mcg/min. I c alled the Patient Services Manager, to discuss his options. Unfortunately, given his septic shock, balloon pump or Impella may not be the best option for him. In the meantime, Epinephrine drip of 0.1mcg/min was ordered. Will repeat ABG and attempt to transfer
[2024-07-04 22:54] LABS: ABG PCO2 29.4 mmHg (35-45); ABG PH Result 7.24 (7.35-7.45); Alveolar-Arterial Oxygen Gradi 52.8 mmHg (5-10); Arterial Blood Gas Hematocrit 46.6 % (42-52); Base Excess ABG -13.3 mmol/L (-2.0-2.0); Blood Gas Sample Site Radial, left; Blood Gas Sample Type Not specified; Carboxyhemoglobin 0.9 %THgb (0.4-20.1); HCO3 ABG 12.6 mmol/L (22-26); HGB O2 Sat 97.9 % (95-100); Ionized Calcium Level - ABG 1.1 mmol/L (1.1-1.4); Methemoglobin 1.2 % (0.4-1.5); Oxygen Device NRB; Oxygen Saturation ABG > 99.1; PO2 FiO2 Ratio Arterial Blood 272; Potassium Level - ABG 4.8 mmol/L (3.5-5.0); Total Hemoglobin 15.2 g/dL (14-18)
[2024-07-04] MEDS: EPINEPHrine 2.5 MG in sodium chloride 0.9% 250 ML 0.61 MG IV (22:54)
[2024-07-04] MEDS: meropenem 1,000 mg SDV 2000 MG IVP (23:15)
--- NOTE | 2024-07-04 23:19 | ECG_ITS ---
[facility]: [facility]24[facility] Pat Name: Dmitry Linares Department: Room: ICU12 Gender: Male Market Research Coordinator: : 1985 Requested By: Marlyn Rudolph Order Number: [id number] Luciano MD: John Cornejo M.D. Measurements Intervals [place] Rate: 147 P: 0 SC: 0 QRS: -36 QRSD: 97 T: 122 QT: 256 QTc: 401 Interpretive Statements ATRIAL FIBRILLATION WITH RAPID VENTRICULAR RESPONSE POSSIBLE RIGHT VENTRICULAR CONDUCTION DELAY [RSR (QR) IN V1/V2] MODERATE VOLTAGE CRITERIA FOR LVH, CONSIDER NORMAL VARIANT [MEETS CRITERIA IN ONE OF: R(aVL), S(V1), R(V5), R(V5/V6)+S(V1)] MODERATE T-WAVE ABNORMALITY, CONSIDER LATERAL ISCHEMIA [-0.1+ mV T-WAVE IN I/aVL/V5/V6] Compared to ECG 07/04/2024 21:55:22 T-wave abnormality now present Possible ischemia now present Sinus tachycardia no longer present Left-axis deviation no longer present ST (T wave) deviation no longer present Electronically Signed On 07-08-2024 23:15:50 HADOOP ARCHITECT by John Cornejo M.D. [id number]
[2024-07-04] MEDS: norepinephrine 4 MG/250 ML BAG 187.5 MG IV (23:23)
[2024-07-04] MEDS: digoxin 250 mcg/ml INJ 2 mL IVP (23:40)
--- NOTE | 2024-07-04 23:56 | PC.NURSE ---
Ousmane Munozip: Dr. Live called unit @approximately 3794. She was made aware of pts critical condition related to HR 190's and MAP's in the 50's. New order to d/c Ousmane khan.
[2024-07-05] VITALS (7 sets, daily range): BP systolic 82–108; BP diastolic 52–70; PULSE 106–162; RESP 19–38; TEMP 36.6; O2SAT 83–100
[2024-07-05] MEDS: phenylephrine inj 25 MG in sodium chloride 0.9% 250 ML 121.2 MG IV (00:06)
[2024-07-05] MEDS: hydrocortisone 100 mg/2 mL SDV IVP (00:09)
[2024-07-05] MEDS: fentaNYL 50 mcg/mL INJ 2mL IVP (00:21)
[2024-07-05] MEDS: midazolam 1 mg/mL INJ 5 ML 5 MG (00:40)
[2024-07-05] MEDS: etomidate 2 mg/mL INJ SDV 10 mL 20 MG IVP (00:41)
[2024-07-05] MEDS: midazolam hcl 100 MG/100 ML BAG IV (00:41)
--- NOTE | 2024-07-05 00:42 | XRR_ITS ---
PROCEDURE INFORMATION: Exam: XR Chest Exam date and time: 07/05/2024 12:59 AM Age: 39 years old Clinical indication: Shortness of breath; Additional info: Intubation TECHNIQUE: Imaging protocol: Radiologic exam of the chest. Views: 1 view. COMPARISON: CR (CHEST, ) 07/04/2024 10:25 PM FINDINGS: Tubes, catheters and devices: Endotracheal tube approximately 3 cm above liliana. Right IJ line atriocaval junction. Lungs: Pulmonary vascular congestion. Pleural spaces: Unremarkable. No pleural effusion. No pneumothorax. Heart/Mediastinum: Cardiomegaly. Bones/joints: Unremarkable. Other findings: Expiratory film. XR/XR chest 1V portable [id number] IMPRESSION: Cardiomegaly. Pulmonary vascular congestion. Endotracheal tube in good position. Right IJ line in good position.
[2024-07-05] MEDS: norepinephrine 4 MG/250 ML BAG 225 MG IV (00:43)
[2024-07-05] MEDS: rocuronium 10 mg/mL INJ 5mL 100 MG IVP (00:50)
--- NOTE | 2024-07-05 00:52 | ANES.PROC ---
Anesthesia Procedures Procedure/Date: 07/05/24 Intubation Procedure Narrative: My hands were washed immediately prior to the procedure. I wore a surgical cap, mask with protective eyewear, gown and gloves throughout the procedure. The patient was placed on a quality assurance monitor body including continuous pulse oximetry. Rapid Sequence Intubation was conducted. The patient received 6mg of Midazolam, 20mg Etomidate, and 100mg of Rocuronium for induction and adequate paralysis. Using a a GlideScope and a size 8.0cm endotracheal tube with stylet, the patient was intubated on the first attempt. The stylet was removed and cuff balloon was inflated. Appropriate endotracheal tube position was confirmed by direct visualization of vocal cord passage, fogging of the tube, CO2 colormetric indicator and symmetric breath sounds. The tube was secured at 24 cm at the lips. Post intubation chest x-ray is pending at this time.
[2024-07-05] MEDS: vasopressin 40 UNIT/100 ML PREMIX 15 UNIT IV (01:04)
[2024-07-05 01:48] LABS: Glucose Point of Care 162 mg/dL (70-110)
--- NOTE | 2024-07-05 04:03 | PC.NURSE ---
Addendum entered by Ana Umanzor RN 07/05/24 04:13: 1mg Versed wasted w/ KIRAN Elmore Original Note: Wasted Medications: Unable to give Dilaudid when pulled @ beginning of the trip. 1mg Dilaudid wasted w/ KIRAN Castillo.
--- NOTE | 2024-07-05 04:34 | PC.NURSE ---
Zoll pads: 3 sets of zoll pads used d/t diaphoresis.
--- NOTE | 2024-07-05 04:50 | PC.NURSE ---
Belongings: No belongings at bedside at time of transfer to [facility].
--- NOTE | 2024-07-05 10:42 | PM.TDS ---
Transfer Summary Providers Date of Admission: 07/04/24 11:20 Date of Discharge/Transfer: 07/05/24 Attending Provider at Admission: Keegan Lewis Attending Provider at Transfer: Keegan Lewis Primary Care Provider: Mariaa Johnston NP Transfer Plans: Anticipated date of transfer: 07/05/24. Diagnoses at Discharge Discharge Diagnosis (1) Acute kidney injury: Status: Acute Reason for Visit Reason for Visit NVD Brief History: Pleasant 39-year-old gentleman with history of nonischemic cardiomyopathy, previously EF as low as 20% on echocardiogram 03/30/2021 with severe global hypokinesis, mild to moderate mitral regurgitation, moderate pulm hypertension, moderate TVR, no significant blockages found on coronary angiogram. More recently echo was reported to have shown improved ejection fraction up to 38% and was following up with cardiology at a correctional facility in [place]. He developed fever 103 Fahrenheit on Wednesday, malaise, with bloating, abdominal distention, diarrhea. He initially reportedly doubled the dose of Lasix, lisinopril-HCTZ, spironolactone with swelling, weeping out of the left lower extremity. He states legs are usually about equally swollen, but right lower extremity has been less affected. He sustained a fall with bruising to left side abdomen and broken the toenail of his right big toe. Hospital Course Hospital Course With hypotension found in ER, he was started on pressor support, right IJ CVC was placed, echocardiogram was obtained. With oliguria, finding of ANETTE, creatinine up to 8.5, BUN up to 102, bicarb 17, chloride 93, potassium 4.6, CK4 115, nephrology consultation was obtained. With metabolic acidosis, lactate with some improvement with initial resuscitation, from 3.6-2.8, initial ABG 7.27/30.3/58.8. Per nephrology recommendation started on bicarb drip. Minimal urine output, although UA was able to be obtained. UA positive for nitrate, 3+ protein, 2+ leukocyte Estrace, more than 100 RBC, more than 100 WBC, 11-20 squamous epithelial cells. UDS positive for amphetamines, confirmatory test requested. Empirically started on ceftriaxone initially, CT abdomen pelvis requested. With difficult to pediatric rn volume status, left lower extremity edematous, right lower extremity with minimal edema, although usually extremities equal. Venous duplex obtained, negative for DVT in left lower extremity. Maintaining oxygen saturation on room air. However, becoming tachycardic. NICOM not available. With recent dehydration with diarrhea since Wednesday, also had doubled his Lasix, lisinopril-HCTZ and spironolactone doses. Continued on metoprolol. Given 2 bags of 25 g 25% albumin, continued with cautious hydration with bicarb drip. Continued with pressor support. With persistent hypotension, moderate troponin elevation noted on 20 series, anticoagulation added. Remained chest pain-free. Was assessed by cardiology. With worsening pressor requirement antibiotics broadened with Zosyn, linezolid. C. difficile requested, with recent diarrhea with renal failure, in case of possible fulminant C. difficile was started empirically also on oral vancomycin, IV Flagyl. Anticoagulation was added in case of possible PE. 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 Right ventricle noted with normal size and function. Mild to moderate mitral regurgitation with dilated LV. As per discussion with cardiology not a safe candidate for Impella/other cardiac temporary support. Continued with empiric treatment of suspected infection, hemodynamic support. Stress dose steroid added in case of adrenal crisis. Overnight hypotension significantly worsening, requiring rise of Levophed rate beyond 20 mg/min, addition of third pressor, transient episode of SVT, although resolved spontaneously, required addition of phenylephrine. C. difficile returned negative. Antibiotic further broadened with meropenem. Progressive metabolic acidosis on ABG. Lactate 3.6. Oliguric, UOP 50 mL. CRRT not available, whereas not a good candidate for intermittent hemodialysis. On additional discussion with [facility] was kindly accepted for further assessment and management. Airway secured with intubation prior to transport by Air-Evac. Physical Exam Urinary Catheter Management: Smith: Cath Placed During This Visit: yes Reason for Continuing Indwelling Catheter: Accurate Measurement of Urinary Output in Critically Ill Patients Urinary Catheter Date of Insertion: 07/04/24 Urinary Catheter Time of Insertion: 09:13 TS Data Studies Completed and Pending Pending at discharge Category Date Time Status Amphetamine Confirmation, GC/M Routine Lab 07/04/24 Received Blood Culture Stat Lab 07/04/24 08:44 Results Urine Culture Stat Lab 07/04/24 Received Completed Studies During Hospitalization Category Date Time Status CXRP [XR chest 1V portable [id number]] Stat Exams 07/04/24 22:16 Completed XR chest 1V portable [id number] Stat Exams 07/04/24 09:14 Completed XR chest 1V portable [id number] Stat Exams 07/04/24 10:00 Completed XR chest 1V portable [id number] Stat Exams 07/05/24 00:42 [place] [id number] Routine Ultrasound 07/04/24 12:25 Completed US echo complete [CV. echo complete* [id number]] Stat Ultrasound 07/04/24 08:48 Completed US gall bladder [id number] Routine Ultrasound 07/04/24 12:36 Completed Laboratory Last Values WBC 13.00 10^3/uL (3.29-11.43) H 07/04/24 08:20 RBC 5.75 10^6/uL (3.85-5.65) H 07/04/24 08:20 Hgb 15.30 g/dL (11.27-16.99) 07/04/24 08:20 Hct 48.0 % (37-53) 07/04/24 08:20 MCV 83.5 fl (82-101) 07/04/24 08:20 MCH 26.6 pg (27-33) L 07/04/24 08:20 MCHC 31.9 g/dL (30-55) 07/04/24 08:20 RDW 15.1 % (12.1-15.1) 07/04/24 08:20 Plt Count 190 10^3/cmm (157-399) 07/04/24 08:20 MPV 11.5 fL (7.4-10.4) H 07/04/24 08:20 Neut % (Auto) 90.9 % 07/04/24 08:20 Lymph % (Auto) 1.7 % 07/04/24 08:20 [place] % (Auto) 2.9 % 07/04/24 08:20 Eos % (Auto) 2.3 % 07/04/24 08:20 Baso % (Auto) 0.9 % 07/04/24 08:20 Neut # (Auto) 11.81 10^3/uL (1.8-7.7) H 07/04/24 08:20 Lymph # (Auto) 0.2 10^3/uL (0.8-4.8) L 07/04/24 08:20 [place] # (Auto) 0.4 10^3/uL (0.2-0.9) 07/04/24 08:20 Eos # (Auto) 0.3 10^3/uL (0.0-0.8) 07/04/24 08:20 Baso # (Auto) 0.1 10^3/uL (0.0-0.1) 07/04/24 08:20 Nucleated RBC % (auto) 0.2 % 07/04/24 08:20 Nucleated RBCs # 0.0 /100WBC 07/04/24 08:20 APTT 62.4 SECONDS (23.9-36.7) H 07/04/24 21:15 Specimen Type Not specified 07/04/24 22:53 Sample Site Radial, left 07/04/24 22:53 ABG pH 7.24 (7.35-7.45) L 07/04/24 22:53 ABG pCO2 29.4 mmHg (35-45) L 07/04/24 22:53 ABG pO2 272.0 mmHg (80.0-100.0) H 07/04/24 22:53 ABG PO2/FiO2 Ratio 272 07/04/24 22:53 ABG HCO3 12.6 mmol/L (22-26) L 07/04/24 22:53 ABG O2 Saturation > 99.1 07/04/24 22:53 ABG Base Excess -13.3 mmol/L (-2.0-2.0) L 07/04/24 22:53 August Test N/a 07/04/24 22:53 A-a O2 Gradient 52.8 mmHg (5-10) H 07/04/24 22:53 Hematocrit 46.6 % (42-52) 07/04/24 22:53 Hgb O2 Saturation 97.9 % (95-100) 07/04/24 22:53 Carboxyhemoglobin 0.9 %THgb (0.4-20.1) 07/04/24 22:53 Methemoglobin 1.2 % (0.4-1.5) 07/04/24 22:53 Total Hemoglobin 15.2 g/dL (14-18) 07/04/24 22:53 Sodium 132.0 mmol/L (131-143) 07/04/24 22:53 Potassium 4.8 mmol/L (3.5-5.0) 07/04/24 22:53 Glucose 158.0 mg/dL (70-115) H 07/04/24 22:53 Ionized Calcium 1.1 mmol/L (1.1-1.4) 07/04/24 22:53 O2 Delivery Device Nrb 07/04/24 22:53 O2 Liters/Min 15.0 % 07/04/24 22:53 FiO2 100.0 % 07/04/24 22:53 Club Attendant ID [email or web address] 07/04/24 22:53 Sodium 133 mmol/L (136-145) L 07/04/24 17:58 Potassium 4.6 mmol/L (3.5-5.1) 07/04/24 17:58 Chloride 94 mmol/L (98-107) L 07/04/24 17:58 Carbon Dioxide 16 mmol/L (22-29) L 07/04/24 17:58 Anion Gap 27.6 (5-19) H 07/04/24 17:58 BUN 101 mg/dL (6-20) H* 07/04/24 17:58 Creatinine 7.8 mg/dL (0.7-1.2) H* 07/04/24 17:58 GFR Calculation 7.9 mL/min (90-130) L 07/04/24 17:58 Glucose 154 mg/dL (65-115) H 07/04/24 17:58 POC Glucose 162 mg/dL (70-110) H 07/04/24 22:00 Calculated Osmolality 311 mOsm/kg (285-295) H 07/04/24 17:58 Lactic Acid 3.3 mmol/L (0.5-2.2) H 07/04/24 08:20 Lactic Acid (Sepsis) 2.8 mmol/L (0.5-2.2) H 07/04/24 10:41 Lactate 3.6 mmol/L (0.5-2.2) H 07/04/24 21:15 Calcium 8.4 mg/dL (8.5-10.5) L 07/04/24 17:58 Magnesium 1.6 mg/dL (1.7-2.3) L 07/04/24 08:20 Total Bilirubin 2.4 mg/dL (0.15-1.2) H 07/04/24 08:20 AST 26 U/L (0-40) 07/04/24 08:20 ALT 33 U/L (0-41) 07/04/24 08:20 Alkaline Phosphatase 143 U/L (40-130) H 07/04/24 08:20 Creatine Kinase 415 U/L (39-308) H* 07/04/24 08:20 Troponin T Baseline 163 ng/L (0-15) H* 07/04/24 08:20 Troponin T 120 Minute 147.5 ng/L (0-15) H 07/04/24 10:41 Delta Troponin T -15.5 ABS# (0-10) L 07/04/24 10:41 Troponin T Hi Sens 6Hr 129.6 ng/L (0-15) H 07/04/24 14:27 Troponin T Hi Sens 6Hr Delta -33.4 ng/L (0-12) L 07/04/24 14:27 NT-Pro-B Natriuret Pep 19737 pg/mL (0-125) H 07/04/24 08:20 Total Protein 6.7 g/dL (6.6-8.7) 07/04/24 08:20 Albumin 3.0 g/dL (3.5-5.2) L 07/04/24 08:20 Globulin 3.7 g/dL (1.3-4.6) 07/04/24 08:20 Lipase 26 U/L (13-60) 07/04/24 08:20 Urine Color O'Brien (Yellow) A 07/04/24 Unknown Urine Appearance Turbid (CLEAR) A 07/04/24 Unknown Urine pH 5.0 (5-7) 07/04/24 Unknown Ur Specific Hollister 1.020 (1.005-1.030) 07/04/24 Unknown Urine Protein 3+ (Negative) A 07/04/24 Unknown Urine Glucose (UA) Negative (Normal) 07/04/24 Unknown Urine Ketones Negative (Negative) 07/04/24 Unknown Urine Blood 3+ (Negative) A 07/04/24 Unknown Urine Nitrate Positive (Negative) A 07/04/24 Unknown Urine Bilirubin 2+ (Negative) H 07/04/24 Unknown Urine Urobilinogen 1.0 mg/dL (Negative) 07/04/24 Unknown Ur Leukocyte Esterase 2+ (Negative) A 07/04/24 Unknown Urine RBC >100 /hpf (0-2) H 07/04/24 Unknown Urine WBC >100 /hpf (0-5) H 07/04/24 Unknown Ur Squamous Epith Cells 11-20 /hpf (0-5) H 07/04/24 Unknown Amorphous Sediment Not Reportable 07/04/24 Unknown Urine Bacteria Trace /hpf (NONE) 07/04/24 Unknown Hyaline Casts 336.45 /lpf 07/04/24 Unknown Ur Random Sodium 48 mmol/L 07/04/24 20:34 Ur Random Chloride 33 mmol/L 07/04/24 20:34 Urine Opiates Screen Negative ng/mL (Negative) 07/04/24 Unknown Ur Barbiturates Screen Negative ng/mL (Negative) 07/04/24 Unknown Ur Phencyclidine Scrn Negative ng/mL (Negative) 07/04/24 Unknown Ur Amphetamines Screen Positive ng/mL (Negative) H 07/04/24 Unknown U Benzodiazepines Scrn Negative ng/mL (Negative) 07/04/24 Unknown Urine Cocaine Screen Negative ng/mL (Negative) 07/04/24 Unknown U Marijuana (THC) Screen Negative ng/mL (Negative) 07/04/24 Unknown Serum Ketones Negative (Negative) 07/04/24 08:20 C. difficile (PCR) Negative (Negative) 07/04/24 19:13 Coronavirus (PCR) Negative (Negative) 07/04/24 08:48 Influenza A (PCR) Negative (Negative) 07/04/24 08:48 Influenza Type B (PCR) Negative (Negative) 07/04/24 08:48 RSV (PCR) Negative (Negative) 07/04/24 08:48 Radiology Impressions Gallbladder Ultrasound 07/04/24 12:36 IMPRESSION: 1. Cholelithiasis without evidence for acute cholecystitis. 2. Hepatomegaly. No intrahepatic bile duct dilatation. Chest X-Ray 07/05/24 00:42 IMPRESSION: Cardiomegaly. Pulmonary vascular congestion. Endotracheal tube in good position. Right IJ line in good position. Recent Clincial Data Last Vital Signs Temp 97.9 F 07/05/24 03:10 Pulse 106 H 07/05/24 03:10 Resp 30 H 07/05/24 03:10 BP 92/56 07/05/24 03:10 Pulse Ox 96 07/05/24 03:10 O2 Del Method Mechanical Ventilation 07/05/24 01:15 O2 Flow Rate 4 07/05/24 00:30 Vital Signs Temp Pulse Resp BP Pulse Ox O2 Del Method O2 Flow Rate 07/05/24 03:10 97.9 F 106 H 30 H 92/56 96 07/05/24 01:15 Mechanical Ventilation 07/05/24 01:00 136 H 19 H 84/56 Mechanical Ventilation 07/05/24 00:45 128 H 26 H 82/52 83 L Mechanical Ventilation 07/05/24 00:30 152 H 30 H 88/56 92 Nasal Cannula 4 07/05/24 00:21 30 H 94 07/05/24 00:15 160 H 38 H 106/68 94 Nasal Cannula 4 07/05/24 00:00 162 H 37 H 108/70 100 Non-Rebreather 12 07/05/24 00:00 97.9 F 07/04/24 23:45 163 H 34 H 111/71 100 Non-Rebreather 12 07/04/24 23:30 161 H 30 H 92/68 100 Non-Rebreather 12 07/04/24 23:15 114 H 30 H 89/63 100 Non-Rebreather 12 07/04/24 23:00 104 H 35 H 74/50 100 Non-Rebreather 12 07/04/24 22:45 98 24 H 88/63 97 Non-Rebreather 12 Intake & Output/Weight 07/03/24 07/04/24 07/05/24 07/06/24 06:59 06:59 06:59 06:59 Intake Total 4073.075 / 4073.075 Output Total 50 / 50 Balance 4023.075 / 4023.075 Weight 151 kg Vitals Last Vital Signs Temp 97.9 F 07/05/24 03:10 Pulse 106 H 07/05/24 03:10 Resp 30 H 07/05/24 03:10 BP 92/56 07/05/24 03:10 Pulse Ox 96 07/05/24 03:10 O2 Del Method Mechanical Ventilation 07/05/24 01:15 O2 Flow Rate 4 07/05/24 00:30 TS Medications Medications Discontinued Medications Acetaminophen (Acetaminophen 325 Mg Tablet) 650 mg PO Q4H PRN PRN Reason: Mild/Mod Pain Or Temp >/= 101 Last Admin: 07/04/24 17:01 Dose: 650 mg Ceftriaxone Sodium (Ceftriaxone 1,000 Mg Sdv) 1,000 mg IVP Q24H STEPHAN; Protocol Last Admin: 07/04/24 15:09 Dose: 1,000 mg Digoxin (Digoxin 250 Mcg/Ml Inj 2 Ml) 500 mcg IVP NOW ONE Stop: 07/04/24 23:33 Last Admin: 07/04/24 23:48 Dose: Not Given Digoxin (Digoxin 250 Mcg/Ml Inj 2 Ml) Confirm Administered Dose 500 mcg .ROUTE .STK-MED ONE Stop: 07/04/24 23:38 Digoxin (Digoxin 250 Mcg/Ml Inj 2 Ml) 250 mcg IVP NOW ONE Stop: 07/04/24 23:41 Last Admin: 07/04/24 23:40 Dose: 250 mcg Enoxaparin Sodium (Enoxaparin 30 Mg/0.3 Ml Syringe) 30 mg SUBCUT Q24H [facility] Last Admin: 07/04/24 12:51 Dose: 30 mg Epinephrine HCl (Epinephrine 1 Mg/Ml Inj) Confirm Administered Dose 3 mg .ROUTE .STK-MED ONE Stop: 07/04/24 22:45 Etomidate (Etomidate 2 Mg/Ml Inj Sdv 10 Ml) 20 mg IVP NOW ONE Stop: 07/04/24 22:23 Last Admin: 07/05/24 00:41 Dose: 20 mg Fentanyl (Fentanyl 50 Mcg/Ml Inj 2ml) 50 mcg IVP Q4H PRN PRN Reason: SEVERE PAIN Last Admin: 07/05/24 00:21 Dose: 50 mcg Heparin Sodium (Porcine) (Heparin 5,000 Unit/Ml Inj 1 Ml) 0 unit IVP PRN PRN; Protocol PRN Reason: Heparin Weight Based Protocol -Subsequent Bolus Heparin Sodium (Porcine) (Heparin 5,000 Unit/Ml Inj 1 Ml) 0 unit IVP ONCE ONE; Protocol Stop: 07/04/24 16:43 Last Admin: 07/04/24 17:20 Dose: 5,000 unit Hydrocortisone Sodium Succinate (Hydrocortisone 100 Mg/2 Ml Sdv) 100 mg IVP Q6H [facility] Last Admin: 07/05/24 00:09 Dose: 100 mg Hydromorphone HCl (Hydromorphone 1 Mg/Ml Inj 1 Ml) 1 mg IVP Q4H PRN PRN Reason: SEVERE PAIN Sodium Chloride (Sodium Chloride 0.9%) 1,000 mls @ 999 mls/hr IV .Q1H1M ONE Stop: 07/04/24 09:21 Last Infusion: 07/04/24 15:37 Dose: Infused Norepinephrine Bitartrate (Levophed) 4 mg in 250 mls @ 0 mls/hr IV .Q0M STEPHAN; Protocol Last Admin: 07/05/24 00:43 Dose: 60 mcg/min, 225 mls/hr Dopamine HCl/Dextrose (Intropin Drip) 400 mg in 250 mls @ 28.066 mls/hr IV CONT STPEHAN; Protocol Last Titration: 07/04/24 21:42 Dose: 0 mcg/kg/min, 0 mls/hr Sodium Bicarbonate 150 meq/ (Dextrose) 1,150 mls @ 50 mls/hr IV .Q23H STEPHAN Last Infusion: 07/04/24 21:47 Dose: Infused Magnesium Sulfate/Dextrose (Magnesium Sulfate Premix) 1 gm in 100 mls @ 200 mls/hr IV ONCE ONE Stop: 07/04/24 14:14 Last Infusion: 07/04/24 15:36 Dose: Infused Vasopressin (Vasostrict) 40 unit in 100 mls @ 0 mls/hr IV .Q0M STEPHAN; Protocol Last Admin: 07/05/24 01:04 Dose: 0.1 unit/min, 15 mls/hr Albumin Human (Albumin) 25 g in 100 mls @ 60 mls/hr IV ONCE ONE Stop: 07/04/24 16:13 Last Infusion: 07/04/24 17:01 Dose: Infused Heparin Sodium/Sodium Chloride (Heparin Drip) 25,000 unit in 500 mls @ 0 mls/hr IV CONT STEPHAN; Protocol Last Titration: 07/04/24 22:36 Dose: 13.91 unit/kg/hr, 42 mls/hr Albumin Human (Albumin) 25 g in 100 mls @ 60 mls/hr IV ONCE ONE Stop: 07/04/24 18:23 Last Infusion: 07/04/24 19:31 Dose: Infused Piperacillin Sod/Tazobactam (Sod 3.375 gm/ Sodium Chloride) 50 mls @ 12.5 mls/hr IV Q12H STEPHAN; Protocol Last Infusion: 07/04/24 21:40 Dose: Infused Linezolid (Zyvox Premix) 600 mg in 300 mls @ 300 mls/hr IV Q12H STEPHAN; Protocol Last Infusion: 07/04/24 19:07 Dose: Infused Metronidazole (Flagyl Iv) 500 mg in 100 mls @ 100 mls/hr IV Q8H STEPHAN; Protocol Last Admin: 07/05/24 01:35 Dose: Not Given Phenylephrine HCl 25 mg/ (Sodium Chloride) 252.5 mls @ 0 mls/hr IV .Q0M STEPHAN; Protocol Last Admin: 07/05/24 00:06 Dose: 200 mcg/min, 121.2 mls/hr Calcium Gluconate/Sodium Chloride (Calcium Gluconate 0.9% Nacl) 1 gm in 50 mls @ 100 mls/hr IV Q30M STEPHAN Stop: 07/04/24 22:59 Last Infusion: 07/04/24 23:48 Dose: Infused Midazolam HCl (Versed) 100 mg in 100 mls @ 0 mls/hr IV .Q0M STEPHAN; Protocol Last Admin: 07/05/24 00:41 Dose: 1 mg/hr, 1 mls/hr Etomidate (Amidate) Confirm Administered Dose 10 mls @ as directed .ROUTE .STK-MED ONE Stop: 07/04/24 22:24 Epinephrine HCl 2.5 mg/ Sodium (Chloride) 252.5 mls @ 0 mls/hr IV .Q0M STEPHAN; Protocol Last Titration: 07/04/24 23:31 Dose: 0 mcg/min, 0 mls/hr Amiodarone HCl/Dextrose (Nexterone) 360 mg in 200 mls @ 0 mls/hr IV .Q0M SETPHAN; Protocol Last Admin: 07/04/24 23:46 Dose: 1 mg/min, 33.33 mls/hr Amiodarone HCl/Dextrose (Nexterone) Confirm Administered Dose 360 mg in 200 mls @ as directed .ROUTE .STK-MED ONE Stop: 07/04/24 23:43 Last Admin: 07/04/24 23:59 Dose: Not Given Sodium Chloride (Sodium Chloride 0.9% (100 Ml)) Confirm Administered Dose 200 mls @ as directed .ROUTE .STK-MED ONE Stop: 07/05/24 02:48 Last Admin: 07/05/24 04:17 Dose: Not Given Meropenem (Meropenem 1,000 Mg Sdv) 2,000 mg IVP Q24H STEPHAN; Protocol Last Admin: 07/04/24 23:15 Dose: 2,000 mg Midazolam HCl (Midazolam 1 Mg/Ml Inj 2 Ml) 4 mg IVP ONCE ONE Stop: 07/04/24 22:24 Last Admin: 07/05/24 04:11 Dose: Not Given Midazolam HCl (Midazolam 1 Mg/Ml Inj 5 Ml) Confirm Administered Dose 5 mg .ROUTE .STK-MED ONE Stop: 07/04/24 22:24 Last Admin: 07/05/24 00:40 Dose: 5 mg Ondansetron HCl (Ondansetron 2 Mg/Ml Sdv 2 Ml) 4 mg IVP ONCE ONE Stop: 07/04/24 08:10 Last Admin: 07/04/24 08:41 Dose: 4 mg Ondansetron HCl (Ondansetron 2 Mg/Ml Sdv 2 Ml) 4 mg IVP Q8H PRN PRN Reason: vomiting, or N/V if npo Oxycodone HCl (Oxycodone 5 Mg Ir Tab/Cap) 5 mg PO Q4H PRN PRN Reason: MODERATE PAIN Pantoprazole Sodium (Pantoprazole 40 Mg Sdv) 40 mg IVP Q24H [facility] Last Admin: 07/04/24 12:52 Dose: 40 mg Rocuronium Hamel (Rocuronium 10 Mg/Ml Inj 5ml) Confirm Administered Dose 100 mg .ROUTE .[facility] ONE Stop: 07/05/24 00:48 Rocuronium Hamel (Rocuronium 10 Mg/Ml Inj 5ml) 100 mg IVP ONCE ONE Stop: 07/05/24 00:51 Last Admin: 07/05/24 00:50 Dose: 100 mg Vancomycin HCl (Vancomycin 125 Mg Capsule) 500 mg PO Q6H [facility] Last Admin: 07/05/24 01:34 Dose: Not Given Allergies No Known Allergies Allergy (Verified 07/04/24 08:08) Home Medications metoprolol succinate 100 mg tablet,extended release 24 hr 100 mg PO DAILY #30 tabs 04/11/24 [Rx Confirmed 07/04/24] spironolactone 25 mg tablet 25 mg PO DAILY #90 tabs 04/11/24 [Rx Confirmed 07/04/24] atorvastatin 10 mg tablet 10 mg PO DAILY #30 tabs 05/17/24 [Rx Confirmed 07/04/24] furosemide 40 mg tablet 40 mg PO DAILY #90 tabs 05/17/24 [Rx Confirmed 07/04/24] lisinopril 10 mg-hydrochlorothiazide 12.5 mg tablet 1 tab PO DAILY #90 tabs 05/17/24 [Rx Confirmed 07/04/24] Discharge Plan Discharge Patient Disposition: Xfer Short-Term Hosp Condition: Critical Prescriptions: No Action metoprolol succinate 100 mg tablet extended release 24 hr 100 mg PO DAILY Qty: 30 2RF spironolactone 25 mg tablet 25 mg PO DAILY Qty: 90 1RF atorvastatin 10 mg tablet 10 mg PO DAILY Qty: 30 2RF furosemide 40 mg tablet 40 mg PO DAILY Qty: 90 1RF lisinopril-hydrochlorothiazide 10-12.5 mg tablet 1 tab PO DAILY Qty: 90 1RF Referrals: Mariaa Johnston NP [Primary Care Provider] - Transfer Attestations Time Spent in Transfer Care: greater than 30 min Quality Metrics Clinical Quality Measures [ No reported AMI, CVA or VTE this stay] Coding Level of Care Code 44779 Total time (in minutes) for Discharge: 50 Diagnoses Acute kidney injury N17.9
[2024-07-08 18:04] LABS: Amphetamine 290 ng/mL; Methamphetamine 2200 ng/mL; Methylenedioxyamphetamine negative; Methylenedioxyethylamphetamine negative; Methylenedioxymethamphetamine negative
== END 2024-07-05 03:10 | disposition short-term general hospital (02) | DRG 871 ==
LOC: ER 11:03 → ICU 11:27
PROVIDERS: Hospitalist; Internal Medicine; Admitting Provider Internal Medicine; Emergency Provider Family Medicine; Visit Provider Internal Medicine
DX: A41.9 Sepsis, unspecified organism (principal); I50.23 Acute on chronic systolic (congestive) heart failure; R65.21 Severe sepsis with septic shock; K83.1 Obstruction of bile duct; N17.9 Acute kidney failure, unspecified; I42.8 Other cardiomyopathies; E87.20 Acidosis, unspecified; I47.10 Supraventricular tachycardia, unspecified; M62.82 Rhabdomyolysis; N39.0 Urinary tract infection, site not specified; I24.89 Other forms of acute ischemic heart disease; I08.1 Rheumatic disorders of both mitral and tricuspid valves; I27.20 Pulmonary hypertension, unspecified; W19.XXXA Unspecified fall, initial encounter; I95.9 Hypotension, unspecified; F15.90 Other stimulant use, unspecified, uncomplicated; G47.33 Obstructive sleep apnea (adult) (pediatric); Z86.718 Personal history of other venous thrombosis and embolism; E86.0 Dehydration; E83.42 Hypomagnesemia
CPT/HCPCS: 36415; 36416; 36600; 51702; 71045; 76705; 80048; 80051; 80053; 80306; 80324; 80359; 81001; 82009; 82330; 82436; 82550; 82805; 82962; 83605; 83690; 83735; 83880; 84300; 84484; 85025; 85730; 87040; 87086; 87493; 87637; 93005; 93306; 93971; 96365; 96366; 96367; 96372; 96375; 99285; A4222; J0171; J0283; J0612; J0696; J1160; J1265; J1644; J1650; J1720; J2020; J2185; J2250; J2371; J2405; J2470; J2543; J2598; J3010; J3475; J3490; J7030; J7050; J7070; P9046; Q3014